=== PATIENT | female | born 1955 | race Caucasian/White ===

== ENCOUNTER 2022-01-23 19:32 | Inpatient (IN) ==
[2022-01-23] MEDS ORDERED: ONDANSETRON INJ 2 MG/ML 2 ML VIAL IV STA ×2 (20:12→23:21)
[2022-01-23] MEDS ORDERED: MoRPHine SULFATE 10 MG/ML CARP/VIAL IV STA (20:12)
[2022-01-23] MEDS ORDERED: SODIUM CHLORIDE 0.9% 500 ML IV ONE (20:13)
--- NOTE | 2022-01-23 20:16 | Emergency Department Note ---
Impression & Plan Back pain, Compression fracture ED Provider Note NAME: ORA ROCK AGE: 66 SEX: F : 1955 ARRIVES VIA: Walk-In INFORMANT: Patient ED PROVIDER(S): Alvaro Salas DO CHIEF COMPLAINT: back pain HPI: Patient is a 66-year-old female who presents to ER for severe lower back pain. Symptoms started back in June and then resolved. This started back up again about a month ago and for the past several days she has been unable to get out of bed. She denies any headache or change in vision. No chest pain or shortness of breath. No numbness in her groin. No dysuria, urgency, or frequency. No numbness in the legs. She notes her left leg does feel slightly different. ROS: See above HPI for pertinent positives & negatives. A total of 10 systems reviewed and were otherwise negative. PAST MEDICAL HISTORY:See Below PAST SURGICAL HISTORY:See Below FAMILY HISTORY:See Below SOCIAL HISTORY:See Below HOME MEDICATIONS:See Below ALLERGIES:See Below VITALS:See Below PHYSICAL EXAMINATION: GENERAL: Sitting up in bed, alert, well appearing, well nourished, no distress, non-toxic EYE EXAM: normal conjunctiva. OROPHARYNX: no exudate, no erythema, lips, buccal mucosa, and tongue normal and mucous membranes are moist NECK: supple, no nuchal rigidity, no adenopathy, non-tender LUNGS: Clear to auscultation. Normal chest wall mechanics HEART: no murmurs, S1 normal and S2 normal ABDOMEN: abdomen soft, non-tender, normo-active bowel sounds, no masses, no r ebound or guarding. BACK: Back is symmetrical on inspection and there is no deformity, Tenderness t hroughout her entire lower lumbar spine including paraspinal muscles UPPER EXTREMITIES: upper extremities are grossly normal. LOWER EXTREMITIES:Flexion and extension of the hips, knees, ankles, and EHL 5/5 bilaterally. Gross sensation is intact. NEURO EXAM: Normal sensorium, cranial nerves II-XII grossly intact, normal speech, no gross weakness of arms, no gross weakness of legs. MEDICAL DECISION MAKING: Patient is a 66-year-old female who presents ER for the above-stated complaint.He was established blood work was obtained. Labs show mild leukocytosis 11,000. [employer] with LFTs bilirubin and lipase was unremarkable. UA was negative. CT of the lumbar spine shows L2 and 3 compression fracture is old versus new with about 3 to 4 mm of retropulsion. She has no focal deficit at this time. She was given 2 doses of morphine. She was given Zofran. Discussed with Dr. oMra and Jorge East from [facility] spine. They will follow her tomorrow in the hosppital. Triage Nursing notes reviewed. Limited review of prior medical records performed Vital Signs: reviewed and remarkable for HTN Differential diagnosis: Differential diagnoses includes but is not limited to lumbar radiculopathy, kidney stone, muscle strain, facture, cauda equina, mass, and disc herniation. ER treatment provided: See below Diagnostics interpreted by me: ECG: none Cardiac Monitoring: An order was placed for continuous cardiac monitoring. The monitor shows a rate of 82 with sinus rhythm. Laboratory studies: As stated above and show below. Imaging studies: CT lumbar spine showed an L2 and L3 acute burst chronic compression fractures with 3 mm retropulsion Consultation(s): Discussed with hospitalist Dr. Abel who Discussed with Jorge from [place] orthopedic spine Procedures: none Critical Care: None Past Med/Surg History Social History (Updated 12/07/21 @ 13:30 by Genna Kwong) Smoking Status: Current every day smoker Hx Alcohol Use: Yes Hx Substance Use: No Preferred Language: Kazakh Feels Safe at Home: Yes Allergies Allergies Allergy/AdvReac Type Severity Reaction Status Date / Time NSAIDS (Non-Steroidal Allergy Unknown THROMBOCYTO Verified 01/23/22 21:26 Anti-Inflamma PENIA sumatriptan AdvReac Intermediate PANIC Verified 01/23/22 21:26 ATTACKS ketorolac AdvReac Mild SKIN Verified 01/23/22 21:26 IRRITATION Home Meds Home Medications Medication Instructions Recorded Confirmed alprazolam 0.5 mg tablet 0.5 mg PO QID PRN Anxiety 01/23/22 01/23/22 cyclobenzaprine 10 mg tablet 10 mg PO BID PRN Muscle Spasm 01/23/22 01/23/22 escitalopram oxalate 10 mg tablet 10 mg PO QAM 01/23/22 01/23/22 escitalopram oxalate 20 mg tablet 20 mg PO QAM 01/23/22 01/23/22 fenofibrate nanocrystallized 145 145 mg PO DAILY 01/23/22 01/23/22 mg tablet omeprazole 20 mg capsule,delayed 20 mg PO QAM 01/23/22 01/23/22 release Results & Data (ED) Vital Signs Vital Signs - 24 hr 01/23/22 19:37 01/23/22 20:29 01/23/22 20:35 Temperature 36.9 C Temperature Source Temporal Artery Scan Pulse Rate 86 Pulse Rate [Apical] 74 Pulse Rhythm Regular Pulse Strength Normal Respiratory Rate 18 20 Respiratory Effort / Characteristics Non-Labored Spontaneous Respiratory Depth Normal Respiratory Pattern Regular Blood Pressure 145/90 H Blood Pressure [Left Arm] 156/83 H Blood Pressure Mean 108 Blood Pressure Mean [Left Arm] 107 Blood Pressure Position Sitting Pulse Oximetry 95 96 98 Oxygen Delivery Method Room Air Room Air Sepsis Recent Fever Within 48 Hours No Sepsis New/Unexplained Change in Mental Status N/A Sepsis Action Taken by Nursing No Action Required 01/23/22 22:00 01/23/22 23:00 Temperature Temperature Source Pulse Rate Pulse Rate [Apical] 86 80 Pulse Rhythm Pulse Strength Respiratory Rate 18 19 Respiratory Effort / Characteristics Respiratory Depth Respiratory Pattern Blood Pressure Blood Pressure [Left Arm] 135/81 132/100 Blood Pressure Mean Blood Pressure Mean [Left Arm] 99 110 Blood Pressure Position Pulse Oximetry 98 96 Oxygen Delivery Method Room Air Sepsis Recent Fever Within 48 Hours Sepsis New/Unexplained Change in Mental Status Sepsis Action Taken by Nursing Laboratory Data Result diagrams: 01/23/22 20:30 01/23/22 20:30 Lab Results 01/23/22 01/23/22 01/23/22 Range/Units 20:30 20:30 20:30 WBC 11.66 H (4.8-10.8) K/ul RBC 5.46 H (3.93-5.22) M/uL Hgb 16.3 H (12.0-16.0) g/dl Hct 47.6 H (34.1-44.9) % MCV 87.2 (80.0-100.0) fL MCH 29.9 (25.0-34.0) pg MCHC 34.2 (32.0-36.0) g/dL RDW Std Deviation 40.2 (36.4-46.3) fL RDW Coeff of Deanne 12.8 (11.5-14.5) % Plt Count 44 L (130-400) K/uL MPV 15.5 H (9.4-12.3) fL Immature Gran % (Auto) 0.4 % Neut % (Auto) 70.0 % Lymph % (Auto) 20.7 % [place] % (Auto) 6.0 % Eos % (Auto) 2.5 % Baso % (Auto) 0.4 % Neut # (Auto) 8.16 H (1.4-6.5) K/uL Lymph # (Auto) 2.41 (1.2-3.4) K/uL [place] # (Auto) 0.70 (0.24-0.82) K/uL Eos # (Auto) 0.29 (0-0.50) K/uL Baso # (Auto) 0.05 (0-0.2) K/uL Immature Gran # (Auto) 0.05 H (0.00-0.02) K/uL Platelet Estimate Decreased L (Normal) Sodium 137 (136-145) mmol/L Potassium 3.9 (3.5-5.1) mmol/L Chloride 102 (98-107) mmol/L Carbon Dioxide 24 (21-32) mmol/L Anion Gap 11 (3-11) BUN 7 (6-23) mg/dl Creatinine 0.59 L (0.6-1.2) mg/dl Est Cr Clr Drug Dosing Not Reportable Est GFR ( Amer) 112.3 ml/min Est GFR (Non-Af Amer) 96.9 ml/min BUN/Creatinine Ratio 11.9 (10-20) Glucose 117 H (70-99(Fasting)) mg/dl Calcium 10.0 (8.5-10.1) mg/dl Total Bilirubin 0.5 (0.2-1.0) mg/dl AST 34 (13-39) U/L ALT 31 (7-52) U/L Alkaline Phosphatase 75 (34-104) U/L Total Protein 7.4 (6.0-8.3) gm/dl Albumin 4.3 (3.4-5.0) gm/dl Globulin 3.1 (2.5-4.0) gm/dl Albumin/Globulin Ratio 1.4 (0.9-2) Lipase 21 (11-82) U/L Urine Color Yellow Urine Appearance Clear (Clear) Urine pH 7.0 (4.5-7.5) Ur Specific [place] 1.008 (1.000-1.030) Urine Protein Negative (Negative) Urine Glucose (UA) Negative (Negative) Urine Ketones Negative (Negative) Urine Blood Negative (Negative) Urine Nitrite Negative (Negative) Urine Bilirubin Negative (Negative) Urine Urobilinogen Negative (Negative) Ur Leukocyte Esterase Negative (Negative) Administered Medications Discontinued Medications Sodium Chloride (Nss) 500 mls @ 999 mls/hr IV .Q31M ONE Stop: 01/23/22 20:43 Last Infusion: 01/23/22 21:23 Dose: 0 mls/hr Documented By: Admin: 01/23/22 20:31 Dose: 999 mls/hr Documented By: EMB Methylprednisolone (Methylprednisolone 125 Mg/2 Ml Vial) 60 mg IV NOW STA Stop: 01/23/22 22:42 Last Admin: 01/23/22 23:09 Dose: 60 mg Documented By: EMB Morphine Sulfate (Morphine Sulfate 10 Mg/Ml Carp/Vial) 6 mg IV NOW STA Stop: 01/23/22 20:13 Last Admin: 01/23/22 20:31 Dose: 6 mg Documented By: EMB Morphine Sulfate (Morphine Sulfate 4 Mg/Ml 1 Ml Carp\Vial) 4 mg IV NOW STA Stop: 01/23/22 21:37 Last Admin: 01/23/22 21:41 Dose: 4 mg Documented By: EMB Ondansetron HCl (Ondansetron Inj 2 Mg/Ml 2 Ml Vial) 4 mg IV NOW STA Stop: 01/23/22 20:13 Last Admin: 01/23/22 20:31 Dose: 4 mg Documented By: EMB Ondansetron HCl (Ondansetron Inj 2 Mg/Ml 2 Ml Vial) Confirm Administered Dose 4 mg .ROUTE .STK-MED ONE Stop: 01/23/22 23:05 Last Admin: 01/23/22 23:09 Dose: 4 mg Documented By: EMB Discharge Plan Visit Data Chief Complaint: Back Injury/Pain Stated Complaint: SEVERE BACK PAIN. HAS 2 HERNIAS ED Provider: Alvaro Salas Discharge Problem: Back pain, Compression fracture Forms Stand Alone Forms: [facility] Prescriptions Prescriptions: No Action cyclobenzaprine 10 mg tablet 10 mg PO BID PRN (Reason: Muscle Spasm) escitalopram oxalate 10 mg tablet 10 mg PO QAM escitalopram oxalate 20 mg tablet 20 mg PO QAM alprazolam 0.5 mg tablet 0.5 mg PO QID PRN (Reason: Anxiety) omeprazole 20 mg capsule,delayed release(DR/EC) 20 mg PO QAM fenofibrate nanocrystallized 145 mg tablet 145 mg PO DAILY Referrals Referrals: Jessie Mccauley M.D. [Primary Care Provider] -
[2022-01-23 20:59] LABS: Appearance Urine Clear (Clear); Bilirubin Urine Negative (Negative); Blood Urine Negative (Negative); Color Urine Yellow; Glucose Urine UA Negative (Negative); Ketones Urine Negative (Negative); Leukocyte Esterase Urine Negative (Negative); Nitrite Urine Negative (Negative); Protein Urine Negative (Negative); Specific Gravity Urine 1.008 (1.000-1.030); Urobilinogen Urine Negative (Negative)
[2022-01-23 21:09] LABS: Alanine Aminotransferase 31 U/L (7-52); Albumin Globulin Ratio 1.4 (0.9-2); Albumin Level 4.3 gm/dl (3.4-5.0); Alkaline Phosphatase 75 U/L (34-104); Anion Gap 11 (3-11); Aspartate Aminotransferase 34 U/L (13-39); BUN Creatinine Ratio 11.9 (10-20); Bilirubin,Total 0.5 mg/dl (0.2-1.0); Blood Urea Nitrogen 7 mg/dl (6-23); Carbon Dioxide 24 mmol/L (21-32); Chloride 102 mmol/L (98-107); Est GFR (African American) 112.3 ml/min; Est GFR (Non-African American) 96.9 ml/min; Globulin 3.1 gm/dl (2.5-4.0); Glucose 117 mg/dl (70-99(Fasting)); Lipase 21 U/L (11-82); Potassium 3.9 mmol/L (3.5-5.1); Sodium 137 mmol/L (136-145); Total Protein 7.4 gm/dl (6.0-8.3)
[2022-01-23 21:15] LABS: Hematocrit (blood only) 47.6 % (34.1-44.9); Hemoglobin 16.3 g/dl (12.0-16.0); White Blood Count 11.66 K/ul (4.8-10.8)
[2022-01-23] MEDS ORDERED: MoRPHine SULFATE 4 MG/ML 1 ML CARP\\VIAL IV STA (21:36)
[2022-01-23 21:39] LABS: Basophils # (auto) 0.05 K/uL (0-0.2); Basophils % (auto) 0.4 %; Eosinophils # (auto) 0.29 K/uL (0-0.50); Eosinophils % (auto) 2.5 %; Immature Granulocytes # (auto) 0.05 K/uL (0.00-0.02); Immature Granulocytes % (auto) 0.4 %; Lymphocytes # (auto) 2.41 K/uL (1.2-3.4); Lymphocytes % (auto) 20.7 %; Mean Corpuscular Hemoglobin 29.9 pg (25.0-34.0); Mean Corpuscular Hgb Conc 34.2 g/dL (32.0-36.0); Mean Corpuscular Volume 87.2 fL (80.0-100.0); Mean Platelet Volume 15.5 fL (9.4-12.3); Neutrophils # (auto) 8.16 K/uL (1.4-6.5); Platelet Count 44 K/uL (130-400); Platelet Estimate Decreased (Normal); RDW Coefficient of Variation 12.8 % (11.5-14.5); RDW Standard Deviation 40.2 fL (36.4-46.3); Red Blood Count 5.46 M/uL (3.93-5.22)
[2022-01-23] MEDS ORDERED: methylPREDNISolone 125 MG/2 ML VIAL IV STA (22:41)
[2022-01-23] MEDS ORDERED: ONDANSETRON INJ 2 MG/ML 2 ML VIAL ONE (23:04)
[2022-01-24] MEDS ORDERED: POLYETHYLENE (MIRALAX) 17 GM PACK PO PRN (00:45)
[2022-01-24] MEDS ORDERED: CYCLOBENZAPRINE HCL 10 MG TAB PO ONE (00:58)
[2022-01-24] MEDS ORDERED: HYDROmorphone INJ 0.5 MG/0.5 ML SYR ONE (00:59)
[2022-01-24] MEDS: HYDROmorphone INJ 0.5 MG/0.5 ML SYR IV PRN ×7 (01:01→23:37)
[2022-01-24] MEDS: CYCLOBENZAPRINE HCL 10 MG TAB PO PRN (01:01)
--- NOTE | 2022-01-24 03:29 | History and Physical Report ---
DATE OF ADMISSION: 01/23/2022. CHIEF COMPLAINT: Severe back pain. HISTORY OF PRESENT ILLNESS: A 66-year-old female with past medical history significant for mixed hyperlipidemia, prediabetes, obesity, diverticulosis of colon, GERD, history of depression, generalized anxiety disorder, history of ventral hernia, ongoing tobacco use, presents with severe back pain. The patient says in June, she had COVID and at that time, she had severe back pain and ambulatory dysfunction, went to [facility]. She says she had MRI done and was told it looked bad and she was prescribed muscle relaxant, some steroids and she also had physical therapy and she says she recovered after 4 months. Then one month ago, when she was cooking and doing dishes, she again started to have back pain, and got worse. She states she tried to Therapy as last time , but it is not getting better. She is in significant pain and sometimes the pain shoots in the legs. She denies any incontinence of urine or stools or any weakness. With her ongoing pain she came to the ER. In the ER, a CT scan of the lumbar spine was done. It showed compression fractures at L2 and L3. The patient denies any headache. No blurred visions, no earache, no runny nose, no sore throat, no cough. Appetite is not that great. No difficulty swallowing. No chest pain, no shortness of breath, no nausea, no vomiting, no abdominal pain. Somewhat constipated. Normal bladder movements. No swelling in the legs. ALLERGIES: SUMATRIPTAN AND KETOROLAC. PAST MEDICAL HISTORY: As mentioned above. PAST SURGICAL HISTORY: The patient states she has incarcerated incisional hernia repair, partial removal of the colon, reduction of the breast, appendectomy, cholecystectomy, total abdominal hysterectomy with removal of tubes and she says she also has back surgery. MEDICATIONS: The patient is on alprazolam 0.5 mg p.o. q.i.d. p.r.n., cyclobenzaprine 10 mg p.o. b.i.d. p.r.n., Lexapro 30 mg p.o. a.m., fenofibrate 145 mg p.o. daily, omeprazole 20 mg p.o. a.m. FAMILY HISTORY: Significant for mother has epilepsy; father had colon cancer with mets to liver; elder brother has prostate cancer and Alzheimer's, alcoholic; younger brother with thyroid cancer and colon cancer. SOCIAL HISTORY: She is smoking 1-2 packs of cigarettes daily for last 50 years. Alcohol: She drinks alcohol, but lately she is drinking only occasionally. No drug use. REVIEW OF SYSTEMS: As per HPI. Rest of the review of systems is negative. PHYSICAL EXAMINATION: GENERAL: The patient is obese, not in acute distress, seems to be in pain. VITAL SIGNS: Temperature 36.9, pulse 80, respiratory rate 19, blood pressure 132/100, oxygen 96% on room air. HEENT: Pupils equal, round and reactive to light. Oral mucosa moist. NECK: No JVD or neck masses. CARDIOVASCULAR: S1 and S2 heard. Regular rate and rhythm. No murmur, no gallop. RESPIRATORY SYSTEM: Normal AP diameter. No accessory muscle use. No wheezing or crackles. ABDOMEN: Soft, bowel sounds present, nontender, no distention. CENTRAL NERVOUS SYSTEM: Cranial nerves II-XII grossly intact, nonfocal. EXTREMITIES: No edema, no erythema. MUSCULOSKELETAL: Bilateral straight leg test negative. LABORATORY DATA: WBC 11.6, hemoglobin 16.3, hematocrit 47.6, platelets 44. Sodium 137, potassium 3.9, chloride 102, bicarbonate 24, BUN 7, creatinine 0.5, serum glucose 117, calcium 10, total bilirubin 0.5, AST 34, ALT 31, alkaline phosphatase 75, lipase 21. Urinalysis negative. IMAGING DATA: CT scan of the lumbar spine shows 20-30% superior endplate compression fracture at L2 and L3. Could be either acute or chronic. Consider bone scan and MRI to differentiate acute from chronic injury. ASSESSMENT AND PLAN: A 66-year-old female presents with severe back pain. 1. Severe back pain compression fracture at L2 and L3 on the CAT scan. Pain control. Consult orthopedics in the a.m. MRI as per orthopedics. PT, OT when stable. 2. Morbid obesity: Needs counseling. 3. Thrombocytopenia. The patient says she was found to have thrombocytopenia and stopped drinking . Needs to follow up. Rule out cirrhosis. 4. Anxiety and depression. Continue her home medications. 5. Hyperlipidemia: Continue fenofibrate. 6. Gastroesophageal reflux disease: Continue omeprazole. 7. Prediabetes. Will follow HbA1c levels. Placing on diabetic diet. 8. Ongoing tobacco abuse: Needs counseling. 9. Deep venous thrombosis prophylaxis. SCDs as the patient has thrombocytopenia. DISPOSITION: Closely monitor in the medical floor. PT, OT prior to discharge. Social service to help with discharge planning. Job ID: [id number] [facility] MED[facility] CENTERMayra
[2022-01-24] MEDS: ACETAMINOPHEN 325 MG TAB PO PRN (04:06)
[2022-01-24 06:03] LABS: Anion Gap 9 (3-11); BUN Creatinine Ratio 12.3 (10-20); Blood Urea Nitrogen 7 mg/dl (6-23); Calcium 9.7 mg/dl (8.5-10.1); Carbon Dioxide 25 mmol/L (21-32); Chloride 101 mmol/L (98-107); Est GFR (African American) 113.5 ml/min; Glucose 179 mg/dl (70-99(Fasting)); Magnesium 1.5 mg/dl (1.7-2.4); Potassium 4.2 mmol/L (3.5-5.1); Sodium 135 mmol/L (136-145)
[2022-01-24 06:11] LABS: Hematocrit (blood only) 46.1 % (34.1-44.9); Hemoglobin 15.6 g/dl (12.0-16.0); Mean Corpuscular Hemoglobin 29.8 pg (25.0-34.0); Mean Corpuscular Hgb Conc 33.8 g/dL (32.0-36.0); Platelet Count 38 K/uL (130-400); RDW Coefficient of Variation 12.7 % (11.5-14.5); RDW Standard Deviation 40.3 fL (36.4-46.3); Red Blood Count 5.24 M/uL (3.93-5.22); White Blood Count 9.98 K/ul (4.8-10.8)
[2022-01-24 06:12] LABS: Basophils # (auto) 0.01 K/uL (0-0.2); Basophils % (auto) 0.1 %; Eosinophils # (auto) 0.01 K/uL (0-0.50); Eosinophils % (auto) 0.1 %; Giant Platelets 1+; Immature Granulocytes # (auto) 0.05 K/uL (0.00-0.02); Immature Granulocytes % (auto) 0.5 %; Monocytes # (auto) 0.08 K/uL (0.24-0.82); Monocytes % (auto) 0.8 %; Neutrophils # (auto) 9.13 K/uL (1.4-6.5); Neutrophils % (auto) 91.5 %; Platelet Estimate Decreased (Normal)
--- NOTE | 2022-01-24 07:51 | CT Scan Report ---
CT lumbar spine wo con HISTORY: 66 years-old Female severe lower back pain acute severe low back pain COMPARISON: CT abdomen and pelvis 05/29/2015 TECHNIQUE: Multiple axial CT images of the lumbar spine were obtained without the use of IV contrast. A dose lowering technique was used consistent with the principals of ALARA. FINDINGS: Colonic diverticulosis. Postoperative changes of the rectosigmoid. Surgical clips with mild chronic s tranding within the presacral tissues. Atherosclerosis of the aorta. Hepatic steatosis with probable hepatosplenomegaly. Demineralized appearance of the bones. 13 degrees levoscoliosis measured from L1-L4. Moderate to sharda re L4-L5 intervertebral disc space narrowing with vacuum disc phenomena and severe facet arthrosis ward s progressed from the prior study. Additionally, there is a posterior disc osteophyte complex formati on noted at this interspace with resultant moderate central canal and at least mild to moderate bilat eral neural foraminal narrowing. Moderate multilevel spondylitic spurring and facet arthrosis. Grade 1 anterolisthesis L5 on S1 is likely secondary to severe associated facet arthrosis. Further evaluati on of the central canal and neuroforamina is better assessed by MRI demineralized appearance of the b ones. 30% superior endplate compression at L2 with 4 mm retropulsion results in mild central canal stenosis . This is new from the prior study. 50% superior endplate compression at L3 is noted without signific ant retropulsion, also new from the prior study. Small superior endplate Schmorl's node at L4 appears chronic. The imaged sacrum and iliac bones appear intact. IMPRESSION: 1. 30% superior endplate compression deformity at L2 with 4 mm retropulsion is technically age-indete rminate however appears to be acute or subacute. This results in mild central canal stenosis. 2. 50% superior endplate compression deformity of L3 is also age-indeterminate however is new from 17 and is likely subacute or chronic. 3. Chronic appearing superior endplate Schmorl's node at L4. 4. Demineralized appearance of the bones with levoscoliosis and progressive multilevel degenerative c hanges. ACT 112: Negative or not required by law. The above report was generated using voice recognition software. It may contain grammatical, syntax o r spelling errors. Electronically signed by: Ruben Sanders M.D. 01/24/2022 7:49 AM
[2022-01-24] MEDS: PANTOprazole 40 MG TAB PO SCH (10:03)
[2022-01-24] MEDS: FENOFIBRATE NANOCRYSTALLIZED 145 MG TABLET PO SCH (10:03)
[2022-01-24] MEDS: ESCITALOPRAM OXALATE 20 MG TAB PO SCH (10:03)
[2022-01-24] MEDS: ESCITALOPRAM OXALATE 10 MG TAB PO SCH (10:04)
[2022-01-24] MEDS: ALPRAZolam 0.5 MG TABLET PO PRN ×2 (10:06→19:25)
[2022-01-24] MEDS: MAGNESIUM SULFATE / D5W 1 GM/100 ML BAG IV SCH ×2 (17:35→20:41)
[2022-01-25] MEDS: ACETAMINOPHEN 325 MG TAB PO PRN ×2 (02:24→08:01)
[2022-01-25] MEDS: CYCLOBENZAPRINE HCL 10 MG TAB PO PRN (02:27)
[2022-01-25] MEDS: HYDROmorphone INJ 0.5 MG/0.5 ML SYR IV PRN ×6 (05:00→22:37)
[2022-01-25] MEDS: ONDANSETRON INJ 2 MG/ML 2 ML VIAL IV PRN (05:00)
[2022-01-25 07:55] LABS: Hematocrit (blood only) 48.2 % (34.1-44.9); Hemoglobin 16.2 g/dl (12.0-16.0); Mean Corpuscular Hemoglobin 30.2 pg (25.0-34.0); Mean Corpuscular Hgb Conc 33.6 g/dL (32.0-36.0); Mean Corpuscular Volume 89.8 fL (80.0-100.0); RDW Coefficient of Variation 12.8 % (11.5-14.5); RDW Standard Deviation 41.8 fL (36.4-46.3); Red Blood Count 5.37 M/uL (3.93-5.22); White Blood Count 17.88 K/ul (4.8-10.8)
[2022-01-25] MEDS: ESCITALOPRAM OXALATE 10 MG TAB PO SCH (08:02)
[2022-01-25] MEDS: FENOFIBRATE NANOCRYSTALLIZED 145 MG TABLET PO SCH (08:02)
[2022-01-25] MEDS: ESCITALOPRAM OXALATE 20 MG TAB PO SCH (08:02)
[2022-01-25] MEDS: PANTOprazole 40 MG TAB PO SCH (08:02)
[2022-01-25 08:24] LABS: BUN Creatinine Ratio 13.2 (10-20); Calcium 9.9 mg/dl (8.5-10.1); Creatinine Clr Calc Pharmacy 79.1 ml/min; Est GFR (African American) 96.1 ml/min; Est GFR (Non-African American) 82.9 ml/min; Magnesium 2.1 mg/dl (1.7-2.4); Phosphorus 4.1 mg/dl (2.5-4.9); Potassium 3.9 mmol/L (3.5-5.1)
[2022-01-25] MEDS: ALPRAZolam 0.5 MG TABLET PO PRN ×2 (10:22→20:50)
[2022-01-25 10:59] LABS: Basophils # (auto) 0.04 K/uL (0-0.2); Basophils % (auto) 0.2 %; Eosinophils # (auto) 0.04 K/uL (0-0.50); Eosinophils % (auto) 0.2 %; Immature Granulocytes # (auto) 0.07 K/uL (0.00-0.02); Immature Granulocytes % (auto) 0.4 %; Lymphocytes # (auto) 2.92 K/uL (1.2-3.4); Lymphocytes % (auto) 16.3 %; Mean Platelet Volume 14.1 fL (9.4-12.3); Monocytes # (auto) 0.82 K/uL (0.24-0.82); Monocytes % (auto) 4.6 %; Neutrophils # (auto) 13.99 K/uL (1.4-6.5); Neutrophils % (auto) 78.3 %; Platelet Count 78 K/uL (130-400)
--- NOTE | 2022-01-25 12:44 | Consultation ---
Date of Consultation January 25, 2022 Assessment & Plan (1) Compression fracture: Patient has an acute L2 compression fracture, subacute to chronic L3 compression fracture. Patient has been examined by Dr. Mixon as well has reviewed imaging. Treatment plan is conservative. I will order a rigid TLSO brace to be worn with activity/ambulation. Does not wear need to wear it when in a chair or when lying down. Would recommend physical therapy. We will start Tylenol with codeine as she states she is sensitive to the Dilaudid she currently has and the Tylenol is not controlling her pain. Would also recommend follow-up [place] [facility] with Kizzy Carbone nurse practitioner for assessment of bone de nsity. This is been reviewed with the patient. She is comfortable with this plan. No lifting greater than 5 pounds. Ambulate ad balta. History of Present Illness Reason for Consultation: Lumbar compression fracture Attending Physician: Tello Her MD History of Present Illness Is a pleasant 66-year-old female who reports that she had COVID in June 2021. She is severe back pain at that point time. After physical therapy for several months her symptoms improved back to baseline. A few weeks ago she reports a new onset of lower back pain. No specific accident, trauma, fall. No radicular complaints of bilateral lower extremity pain, paresthesia, numbness. Denies bowel or bladder dysfunction. Denies perineum numbness. Typically ambulates independently. Although she has a walker if needed. She has an elastic brace at home but this just provide some abdominal discomfort which she has an abdominal surgical history of. She has also had a prior laminectomy in 2001. Allergies Allergy/AdvReac Type Severity Reaction Status Date / Time NSAIDS (Non-Steroidal Allergy Unknown THROMBOCYTO Verified 01/23/22 21:26 Anti-Inflamma PENIA sumatriptan AdvReac Intermediate PANIC Verified 01/23/22 21:26 ATTACKS ketorolac AdvReac Mild SKIN Verified 01/23/22 21:26 IRRITATION Home Medications Medication Instructions Recorded Confirmed Type alprazolam 0.5 mg tablet 0.5 mg PO QID PRN Anxiety 01/23/22 01/23/22 History cyclobenzaprine 10 mg tablet 10 mg PO BID PRN Muscle Spasm 01/23/22 01/23/22 History escitalopram oxalate 10 mg tablet 10 mg PO QAM 01/23/22 01/23/22 History escitalopram oxalate 20 mg tablet 20 mg PO QAM 01/23/22 01/23/22 History fenofibrate nanocrystallized 145 145 mg PO DAILY 01/23/22 01/23/22 History mg tablet omeprazole 20 mg capsule,delayed 20 mg PO QAM 01/23/22 01/23/22 History release Patient History Social History Smoking Status: Never smoker Second Hand Exposure: No; Do You Dip or Chew Tobacco: No; Tobacco Cessation Education Requested by Patient: No Hx Alcohol Use: No Hx Substance Use: No Preferred Language: [place]orese Communication Ability: Effective Lactation Coordinator Required: No Beliefs That Will Affect Care: None Current Living Situation: Family Other Information That Helps Us Care for You: No Feels Safe at Home: Yes Safety Concerns: Feels Safe At This Time Assistive Devices: Walker Review of Systems 2 Review of Systems: All systems reviewed & are unremarkable except as noted in HPI & below Physical Exam Physical Exam: She is alert and oriented x3 Lying in bed in no acute distress Tender to patient of the midline mid lumbar region no palpable step-offs. Strength is intact bilateral lower extremities Negative tension signs bilaterally Calf soft nontender bilaterally Results & Data ([facility]) Vital Signs (Past 12 Hours) Vital Signs Temp Pulse Resp BP Pulse Ox O2 Del Method 01/25/22 07:42 36.6 C 58 L 18 164/79 H 95 Room Air Diagnostic Findings [place], [place] [phone] CT Scan Report Patient:ORA ROCK Admit Date:01/23/22 MR#:[id number] Address1:[address] [place] [address] Acct ID:[id number] Address2: Date:1955 [facility] Zip:[place] [address] Age:66 Location:[facility] Sex:F Room/Bed:[facility] 1-12 Att Phy:Tello Her MD Diagnosis:BACK PAIN Annie Phy:Jessie Mccauley M.D. Service Date:01/23/22 Fam Phy: Interpreting Phy:Ruben SandersAdmit Phy:Kwame Luong MD Ordering Phy:Salas, Alvaro M., DO cc: ~ CT lumbar spine wo con HISTORY: 66 years-old Female severe lower back pain acute severe low back pain COMPARISON: CT abdomen and pelvis 05/29/2015 TECHNIQUE: Multiple axial CT images of the lumbar spine were obtained without the use of IV contrast. A dose lowering technique was used consistent with the principals of BREA. FINDINGS: Colonic diverticulosis. Postoperative changes of the rectosigmoid. Surgical clips with mild chronic stranding within the presacral tissues. Atherosclerosis of the aorta. Hepatic steatosis with probable hepatosplenomegaly. Demineralized appearance of the bones. 13 degrees levoscoliosis measured from L1-L4. Moderate to severe L4-L5 intervertebral disc space narrowing with vacuum disc phenomena and severe facet arthrosis has progressed from the prior study. Additionally, there is a posterior disc osteophyte complex formation noted at this interspace with resultant moderate central canal and at least mild to moderate bilateral neural foraminal narrowing. Moderate multilevel spondylitic spurring and facet arthrosis. Grade 1 anterolisthesis L5 on S1 is likely secondary to severe associated facet arthrosis. Further evaluation of the central canal and neuroforamina is better assessed by MRI demineralized appear ance of the bones. 30% superior endplate compression at L2 with 4 mm retropulsion results in mild central canal stenosis. This is new from the prior study. 50% superior endplate compression at L3 is noted without significant retropulsion, also new from the prior study. Small superior endplate Schmorl's node at L4 appears chronic. The imaged sacrum and iliac bones appear intact. IMPRESSION: 1. 30% superior endplate compression deformity at L2 with 4 mm retropulsion is technically age-indeterminate however appears to be acute or subacute. This results in mild central canal stenosis. 2. 50% superior endplate compression deformity of L3 is also age-indeterminate however is new from 2015 and is likely subacute or chronic. 3. Chronic appearing superior endplate Schmorl's node at L4. 4. Demineralized appearance of the bones with levoscoliosis and progressive multilevel degenerative changes. ACT 112: Negative or not required by law. The above report was generated using voice recognition software. It may contain grammatical, syntax or spelling errors. Electronically signed by: Ruben Sanders M.D. 01/24/2022 7:49 AM Dictated:01/24/22 0740 Transcribed: 01/24/22 0740
[2022-01-25] MEDS ORDERED: ACETAMINOPHEN W/CODEINE #3 1 TAB PO PRN (13:00)
--- NOTE | 2022-01-25 14:00 | Hospitalist Progress Note ---
Date of Service January 25, 2022 Assessment & Plan (1) Compression fracture: Plan: - seen on CT of Lumbar spine at L2 and L3 - significant pain per patient - ortho spine consult - conservative management with TLSO brace - Pain management - PT/OT eval (2) Thrombocytopenia: Plan: - appears to be chronic - follows with outside provider - stable - no signs of bleeding (3) GERD (gastroesophageal reflux disease): Plan: - continue PPI Plan DVT Ppx: lovenox Full Code Tello Her MD Hospital Medicine Admission and Anticipated Discharge Date Admission Date: January 23, 2022 Subjective A 66-year-old female with past medical history significant for mixed hyperlipidemia, prediabetes, obesity, diverticulosis of colon, GERD, history of depression, generalized anxiety disorder, history of ventral hernia, ongoing tobacco use, presents with severe back pain. Found to have compression fractures on imaging. Seen by orthopedics who recommend TLSO brace and PT/OT eval. She feels well today, still with back pain. Denies chest pain, shortness of breath, n/v/d, abdominal pain/ Review of Systems Review of Systems: All systems reviewed & are unremarkable except as noted in Subjective Physical Exam Constitutional: WD/WN, vitals as above Eyes: PERRL, conjunctivae normal, anicteric sclerae ENMT: external ear and nose normal, oropharynx normal Neck: trachea midline, no thyromegaly Respiratory: normal respiratory effort, lungs clear to auscultation Cardiovascular: RRR, no murmur, no edema Gastrointestinal (Abdomen): normal bowel sounds, soft, nontender, no hepatosplenomegaly Musculoskeletal: no cyanosis or clubbing, extremities motor strength 5/5 Skin: no rashes, warm and dry Neurologic: patellar DTR's 2+ bilat, sensation intact and PERRL, EOMI, accommodation nl, no face palsy, no dysarthria Psychiatric: A+Ox3, euthymic affect Results & Data Results & Data ([facility]) Vital Signs (Past 12 Hours) Vital Signs Temp Pulse Resp BP Pulse Ox O2 Del Method 01/25/22 07:42 36.6 C 58 L 18 164/79 H 95 Room Air Laboratory Results Short CBC 01/25/22 Range/Units 07:35 WBC 17.88 H (4.8-10.8) K/ul Hgb 16.2 H (12.0-16.0) g/dl Hct 48.2 H (34.1-44.9) % Plt Count 78 L D (130-400) K/uL BMP 01/25/22 07:35 Sodium 138 Potassium 3.9 Chloride 99 Carbon Dioxide 31 BUN 10 Creatinine 0.76 Glucose 110 H Calcium 9.9 Medications Administered Current Inpatient Medications Acetaminophen (Acetaminophen 325 Mg Tab) 650 mg PO Q4H PRN PRN Reason: pain/fever Stop: 02/23/22 00:44 Last Admin: 01/25/22 08:01 Dose: 650 mg Acetaminophen/Codeine Phosphate (Acetaminophen W/Codeine #3 1 Tab) 1 tab PO Q4H PRN PRN Reason: Pain Stop: 02/24/22 12:59 Alprazolam (Alprazolam 0.5 Mg Tablet) 0.5 mg PO QID PRN PRN Reason: Anxiety Stop: 02/23/22 00:44 Last Admin: 01/25/22 10:22 Dose: 0.5 mg Cyclobenzaprine HCl (Cyclobenzaprine Hcl 10 Mg Tab) 10 mg PO BID PRN PRN Reason: Muscle Spasm Stop: 02/23/22 00:44 Last Admin: 01/25/22 02:27 Dose: 10 mg Escitalopram Oxalate (Escitalopram Oxalate 10 Mg Tab) 10 mg PO QAM [facility] Stop: 02/23/22 08:59 Last Admin: 01/25/22 08:02 Dose: 10 mg Escitalopram Oxalate (Escitalopram Oxalate 20 Mg Tab) 20 mg PO QAM [facility] Stop: 02/23/22 08:59 Last Admin: 01/25/22 08:02 Dose: 20 mg Fenofibrate (Fenofibrate Nanocrystallized 145 Mg Tablet) 145 mg PO DAILY [facility] Stop: 02/23/22 08:59 Last Admin: 01/25/22 08:02 Dose: 145 mg Hydromorphone HCl (Hydromorphone Inj 0.5 Mg/0.5 Ml Syr) 0.5 mg IV Q3H PRN PRN Reason: Pain Stop: 02/07/22 00:44 Last Admin: 01/25/22 11:36 Dose: 0.5 mg Ondansetron HCl (Ondansetron Inj 2 Mg/Ml 2 Ml Vial) 4 mg IV Q6H PRN PRN Reason: Nausea Stop: 02/23/22 00:44 Last Admin: 01/25/22 05:00 Dose: 4 mg Pantoprazole Sodium (Pantoprazole 40 Mg Tab) 40 mg PO [facility] Stop: 02/23/22 08:59 Last Admin: 01/25/22 08:02 Dose: 40 mg Polyethylene Glycol (Polyethylene (Miralax) 17 Gm Pack) 17 gm PO DAILY PRN PRN Reason: Constipation Stop: 02/23/22 00:44
[2022-01-26] MEDS: HYDROmorphone INJ 0.5 MG/0.5 ML SYR IV PRN ×5 (01:43→18:36)
[2022-01-26 08:26] LABS: Hematocrit (blood only) 44.6 % (34.1-44.9); Hemoglobin 15.2 g/dl (12.0-16.0); Mean Corpuscular Hemoglobin 29.8 pg (25.0-34.0); Mean Corpuscular Hgb Conc 34.1 g/dL (32.0-36.0); Mean Corpuscular Volume 87.5 fL (80.0-100.0); RDW Coefficient of Variation 12.8 % (11.5-14.5); RDW Standard Deviation 40.8 fL (36.4-46.3); White Blood Count 8.64 K/ul (4.8-10.8)
[2022-01-26] MEDS: ESCITALOPRAM OXALATE 20 MG TAB PO SCH (08:38)
[2022-01-26] MEDS: ESCITALOPRAM OXALATE 10 MG TAB PO SCH (08:38)
[2022-01-26] MEDS: PANTOprazole 40 MG TAB PO SCH (08:39)
[2022-01-26] MEDS: FENOFIBRATE NANOCRYSTALLIZED 145 MG TABLET PO SCH (08:39)
[2022-01-26 08:42] LABS: Mean Platelet Volume 14.4 fL (9.4-12.3); Platelet Count 62 K/uL (130-400)
[2022-01-26 08:44] LABS: BUN Creatinine Ratio 18.8 (10-20); Calcium 9.4 mg/dl (8.5-10.1); Creatinine Clr Calc Pharmacy 87.1 ml/min; Est GFR (African American) 106.6 ml/min; Magnesium 1.8 mg/dl (1.7-2.4); Phosphorus 3.9 mg/dl (2.5-4.9); Potassium 3.7 mmol/L (3.5-5.1)
[2022-01-26 09:34] LABS: Basophils # (auto) 0.04 K/uL (0-0.2); Basophils % (auto) 0.5 %; Eosinophils # (auto) 0.08 K/uL (0-0.50); Eosinophils % (auto) 0.9 %; Immature Granulocytes # (auto) 0.02 K/uL (0.00-0.02); Immature Granulocytes % (auto) 0.2 %; Lymphocytes # (auto) 2.74 K/uL (1.2-3.4); Lymphocytes % (auto) 31.7 %; Monocytes # (auto) 0.57 K/uL (0.24-0.82); Monocytes % (auto) 6.6 %; Neutrophils # (auto) 5.19 K/uL (1.4-6.5); Neutrophils % (auto) 60.1 %
[2022-01-26] MEDS: ENOXAPARIN INJ 40 MG/0.4 ML SYR SQ SCH (10:28)
[2022-01-26] MEDS: ALPRAZolam 0.5 MG TABLET PO PRN ×2 (14:52→21:52)
[2022-01-26] MEDS: ONDANSETRON INJ 2 MG/ML 2 ML VIAL IV PRN (14:53)
--- NOTE | 2022-01-26 17:44 | Hospitalist Progress Note ---
Date of Service January 26, 2022 Assessment & Plan (1) Osteoporotic compression fracture of spine: Plan: - seen on CT of Lumbar spine at L2 and L3 - this is a recurrence, comp fx occurred last year -marimarley related to underlying osteoporosis -pt denies having had a BMD test as outpatient. - significant pain per patient -controlled with dilaudid, T3 not helpful. Switching to percocet trial now. - ortho spine consult - conservative management with TLSO brace - Pain management - PT/OT eval--ok with home when pain is controlled. (2) Thrombocytopenia: Plan: - appears to be chronic - follows with outside provider - stable - no signs of bleeding (3) GERD (gastroesophageal reflux disease): Plan: - continue PPI (4) Anxiety: Plan: Alprazolam chronically per PDMP. Caution with dosing Percocet and separate dosing to minimize pharmacologic side effects. Plan DVT Ppx: lovenox Full Code Tootie Lepe DO [facility] Hospitalist Admission and Anticipated Discharge Date Admission Date: January 23, 2022 Subjective A 66-year-old female with past medical history significant for mixed hyperlipid emia, prediabetes, obesity, diverticulosis of colon, GERD, history of depression, generalized anxiety disorder, history of ventral hernia, ongoing tobacco use, presents with severe back pain. Found to have compression fractures on imaging. Seen by orthopedics who recommend TLSO brace and PT/OT eval. She feels well today, still with back pain and dependent on dilaudid IV. T#3 was ineffective. We discussed switching to Percocet tonight. Caution with alprazolam. Denies chest pain, shortness of breath, n/v/d, abdominal pain. Tolerating PO. Understands that her pain level won't be 0, she needs to get her pain goal to a reasonable control with meds. She verbalized understanding with intent to comply. Review of Systems Review of Systems: All systems were reviewed and negative except as indicated in subjective above. Physical Exam Physical Exam: CONSTITUTIONAL: WNWD, vitals as above, generally well- appearing, NAD EYES: normal conjunctivae, no scleral icterus ENT: external ear and nose normal, MMM NECK: trachea midline RESPIRATORY: clear to auscultation bilaterally, no crackles, rales or wheezes, normal respiratory effort CARDIOVASCULAR: regular rate and rhythm, S1 and 2 heard without murmurs, gallops or rubs, no JVD, no peripheral edema CHEST: inspection of chest was normal GASTROINTESTINAL: soft, nontender, ND, obese, no guarding MUSCULOSKELETAL: strength 5/5 throughout, head is normocephalic and atraumatic, SKIN: warm and dry, NEUROLOGIC: patellar DTRs 2+ bilat. Touch, pain and proprioception normal. CN 2-12 grossly intact, no sensory deficit, normal cognition, normal speech, no tremor PSYCHIATRIC: alert cooperative and oriented to person, place and time. Euthymic mood, makes good eye contact, language grossly intact, recent and remote memory grossly intact. Results & Data Results & Data ([facility]) Vital Signs (Past 12 Hours) Vital Signs Temp Pulse Resp BP Pulse Ox O2 Del Method 01/26/22 16:37 37.0 C 70 16 149/87 H 92 01/26/22 14:33 36.8 C 67 18 132/80 91 Room Air 01/26/22 10:20 Room Air 01/26/22 07:28 37.0 C 68 18 136/85 90 Room Air Laboratory Results Short CBC 01/26/22 Range/Units 07:43 WBC 8.64 (4.8-10.8) K/ul Hgb 15.2 (12.0-16.0) g/dl Hct 44.6 (34.1-44.9) % Plt Count 62 L (130-400) K/uL [facility] 01/26/22 07:43 Sodium 136 Potassium 3.7 Chloride 99 Carbon Dioxide 29 BUN 13 Creatinine 0.69 Glucose 98 Calcium 9.4 Medications Administered Current Inpatient Medications Acetaminophen (Acetaminophen 325 Mg Tab) 650 mg PO Q4H PRN PRN Reason: pain/fever Stop: 02/23/22 00:44 Last Admin: 01/25/22 08:01 Dose: 650 mg Alprazolam (Alprazolam 0.5 Mg Tablet) 0.5 mg PO QID PRN PRN Reason: Anxiety Stop: 02/23/22 00:44 Last Admin: 01/26/22 14:52 Dose: 0.5 mg Cyclobenzaprine HCl (Cyclobenzaprine Hcl 10 Mg Tab) 10 mg PO BID PRN PRN Reason: Muscle Spasm Stop: 02/23/22 00:44 Last Admin: 01/25/22 02:27 Dose: 10 mg Enoxaparin Sodium (Enoxaparin Inj 40 Mg/0.4 Ml Syr) 40 mg SQ QAM [facility] Stop: 02/25/22 08:59 Last Admin: 01/26/22 10:28 Dose: 40 mg Escitalopram Oxalate (Escitalopram Oxalate 10 Mg Tab) 10 mg PO QAM [facility] Stop: 02/23/22 08:59 Last Admin: 01/26/22 08:38 Dose: 10 mg Escitalopram Oxalate (Escitalopram Oxalate 20 Mg Tab) [facility] [place] Stop: 02/23/22 08:59 Last Admin: 01/26/22 08:38 Dose: 20 mg Fenofibrate (Fenofibrate Nanocrystallized 145 Mg Tablet) 145 mg PO DAILY COUNT [facility]CLUD[facility] Stop: 02/23/22 08:59 Last Admin: 01/26/22 08:39 Dose: 145 mg Hydromorphone HCl (Hydromorphone Inj 0.5 Mg/0.5 Ml Syr) 0.5 mg IV Q3H PRN PRN Reason: severe pain (6-10) Stop: 02/07/22 00:44 Ondansetron HCl (Ondansetron Inj 2 Mg/Ml 2 Ml Vial) 4 mg IV Q6H PRN PRN Reason: Nausea Stop: 02/23/22 00:44 Last Admin: 01/26/22 14:53 Dose: 4 mg Oxycodone/Acetaminophen (Oxycodone/Acetaminophen 5mg/325mg Tab) 1 tab PO Q4H PRN PRN Reason: severe pain (6-10) Stop: 02/09/22 17:35 Pantoprazole Sodium (Pantoprazole 40 Mg Tab) [facility] [place] Stop: 02/23/22 08:59 Last Admin: 01/26/22 08:39 Dose: 40 mg Polyethylene Glycol (Polyethylene (Miralax) 17 Gm Pack) 17 gm PO DAILY PRN PRN Reason: Constipation Stop: 02/23/22 00:44
[2022-01-26] MEDS: oxyCODONE/ACETAMINOPHEN 5mg/325mg TAB PO PRN (21:51)
[2022-01-27] MEDS: HYDROmorphone INJ 0.5 MG/0.5 ML SYR IV PRN ×2 (03:09→09:16)
[2022-01-27] MEDS: oxyCODONE/ACETAMINOPHEN 5mg/325mg TAB PO PRN (07:59)
[2022-01-27] MEDS: ESCITALOPRAM OXALATE 10 MG TAB PO SCH (08:00)
[2022-01-27] MEDS: ESCITALOPRAM OXALATE 20 MG TAB PO SCH (08:00)
[2022-01-27] MEDS: PANTOprazole 40 MG TAB PO SCH (08:00)
[2022-01-27] MEDS: ENOXAPARIN INJ 40 MG/0.4 ML SYR SQ SCH (08:01)
[2022-01-27] MEDS: ALPRAZolam 0.5 MG TABLET PO PRN ×2 (08:03→16:09)
[2022-01-27 08:29] LABS: Hematocrit (blood only) 44.4 % (34.1-44.9); Mean Corpuscular Hemoglobin 29.4 pg (25.0-34.0); Mean Corpuscular Hgb Conc 33.8 g/dL (32.0-36.0); Mean Corpuscular Volume 87.1 fL (80.0-100.0); RDW Coefficient of Variation 12.6 % (11.5-14.5); RDW Standard Deviation 40.1 fL (36.4-46.3); White Blood Count 9.39 K/ul (4.8-10.8)
[2022-01-27 09:00] LABS: Mean Platelet Volume 14.6 fL (9.4-12.3); Platelet Count 53 K/uL (130-400)
[2022-01-27] MEDS ORDERED: oxyCODONE HCL IR 5 MG TAB (IMMEDIATE RELEASE) PO PRN (11:31)
--- NOTE | 2022-01-27 15:03 | Discharge Summary ---
Date of Service January 27, 2022 Principal Diagnosis Osteoporotic compression fracture of spine Severe pain secondary to compression fracture Thrombocytopenia Discharge Exam CONSTITUTIONAL: WNWD, vitals as above, generally well-appearing, NAD EYES: normal conjunctivae, no scleral icterus ENT: external ear and nose normal, MMM NECK: trachea midline RESPIRATORY: clear to auscultation bilaterally, no crackles, rales or wheezes, normal respiratory effort CARDIOVASCULAR: regular rate and rhythm, S1 and 2 heard without murmurs, gallops or rubs, no JVD, no peripheral edema CHEST: inspection of chest was normal GASTROINTESTINAL: soft, nontender, ND, obese, no guarding MUSCULOSKELETAL: strength 5/5 throughout, moving around easier, head is normocephalic and atraumatic, SKIN: warm and dry, NEUROLOGIC: CN 2-12 grossly intact, no sensory deficit, normal cognition, normal speech, no tremor PSYCHIATRIC: alert cooperative and oriented to person, place and time. Euthymic mood, makes good eye contact, language grossly intact, recent and remote memory grossly intact. Discharge Data Allergies Allergy/AdvReac Type Severity Reaction Status Date / Time NSAIDS (Non-Steroidal Allergy Unknown THROMBOCYTO Verified 01/23/22 21:26 Anti-Inflamma PENIA sumatriptan AdvReac Intermediate PANIC Verified 01/23/22 21:26 ATTACKS ketorolac AdvReac Mild SKIN Verified 01/23/22 21:26 IRRITATION Consultations 01/24/22 08:00 Consult Orthopedic Surgery Routine 01/24/22 15:07 Consult Orthopedic Surgery Routine Ordered Studies 01/23/22 20:12 CT lumbar spine wo con Urgent Hospital Course (1) Osteoporotic compression fracture of spine: (2) Thrombocytopenia: (3) GERD (gastroesophageal reflux disease): (4) Anxiety: Plan A 66-year-old female with past medical history significant for mixed hyperlipidemia, prediabetes, obesity, diverticulosis of colon, GERD, history of depression, generalized anxiety disorder, history of ventral hernia, ongoing t obacco use, presents with severe back pain. Found to have compression fractures on imaging. Likely osteoporotic in nature. Seen by orthopedics who recommend TLSO brace and physical therapy. She was improved with narcotics and required some trial of different agents before feeling improvement to a reasonable level with oxycodone 10mg. She was discharged in stable condition with close PCP follow-up and encouraged to discuss treatment options for osteoporosis. Noted to have thrombocytopenia on labwork. Appears to be chronic, but little to no workup on this in her current outpatient records. Recommend discussion of this during next PCP visit. Total Time Total Time Spent Total Time Spent (In Minutes): 60 Discharge Plan Discharge Items Patient Disposition: Home - Self-Care Reason For Visit: BACK PAIN Discharge Diagnosis: Osteoporotic compression fracture of spine Severe pain secondary to compression fracture Thrombocytopenia Condition on Discharge: Good Activity: Resume your previous activity Non-emergency contact: Primary Care Provider Call non-emergency contact if: you have any medication questions, your symptoms worsen, your pain is not controlled, your pain is worsening and your pain is unusual for you Follow-up/Referrals: Jessie Mccauley M.D. [Primary Care Provider] - 02/07/22 10:15 am Diet: Carb Consistent or DM2 and Heart Healthy Addtl Attending Provider Instructions: Please take all medications as instructed on discharge list below. It is recommended that you follow-up with your primary care doctor at the time and date above. After checking, this was the first available for this provider. If you would prefer to see a [facility] provider you may be able to be seen earlier post hospital stay. To help reduce the amount of oxycodone needed, consider taking Tylenol 1000 mg every 8 hours which you can take consistently in the short-term. Remember that narcotics make you constipated and it will be important to have a daily bowel movement. To achieve this you may need to use stool softeners or [id number] laxative such as MiraLAX. You have been provided a finite amount of oxycodone to take for help with pain control. Please do not mix this with your Xanax and if you need to take both separate them by at least 2 hours. Do not mix Xanax oxycodone or the both of them together with alcohol, and it is recommended that you do not drive while taking these medicines. Please discuss with your primary care doctor the risks and benefits of osteoporosis treatments. You have been found to have a low platelet level which may give you an increased tendency to bleed. Please avoid aspirin or other NSAIDs (nonsteroidal anti-inflammatory drugs) and discuss the workup with your primary care physician on followup. You may need to be referred to a ship scaler. You have been provided a rigid TLSO brace to be worn with activity or ambulation. You do not need to wear the brace when in a chair or when lying down. Outpatient physical therapy is recommended. It was a pleasure taking care of you! Please call if you have any questions or problems. You can reach a [facility] hospitalist on duty at [facility] 24 hours a day by calling [phone]. Take care of yourself. Tootie Lepe, DO [facility] Hospitalist Pending Studies at Discharge: No Stand-Alone Forms: My [facility] Medications and DC Order Prescriptions: New oxycodone 10 mg tablet 5 - 10 mg PO Q8H PRN (Reason: severe pain) Qty: 30 0RF Continued cyclobenzaprine 10 mg tablet 10 mg PO BID PRN (Reason: Muscle Spasm) escitalopram oxalate 10 mg tablet 10 mg PO QAM escitalopram oxalate 20 mg tablet 20 mg PO QAM alprazolam 0.5 mg tablet 0.5 mg PO QID PRN (Reason: Anxiety) omeprazole 20 mg capsule,delayed release(DR/EC) 20 mg PO QAM fenofibrate nanocrystallized 145 mg tablet 145 mg PO DAILY Discharge Orders: Discharge Order (Routine); Ordered 01/27/22 Ordered By: Tootie Lepe Admission Data Admit Date/Time: 01/23/22 23:38 Attending Provider: Tootie Lepe Admit Provider: Kwame Luong Primary Care Provider: Jessie Mccauley Other Providers: Williams Mixon Brian A
[2022-01-27] MEDS: FENOFIBRATE NANOCRYSTALLIZED 145 MG TABLET PO SCH (15:36)
[2022-01-27] MEDS: ACETAMINOPHEN 325 MG TAB PO PRN (16:09)
== END 2022-01-27 16:50 | disposition home or self-care (01) | DRG 544 ==
LOC: ED 19:32 → SUATTDRO 23:38 → EDINP 23:38 → 3N 01-24 08:10

== ENCOUNTER 2023-09-19 16:35 | Inpatient (IN) ==
--- NOTE | 2023-09-19 16:56 | ED Triage Note ---
Date of Service September 19, 2023 Provider in Triage Author: Preethi Daly History of Present Illness This patient was briefly evaluated while in triage. An abbreviated physical exam was performed. This patient is a 68-year-old Female who presents to the ED for evaluation of "I messed my back up more." States she was at [facility] ED twice this week. Was admitted overnight and had MRI completed which was consistent with 2 compression fractures in the lumbar region. States no new injury since admission. Reports pain is 9/10 and positional. States "I was told to leave after I saw Physical Therapy and we had this whole setup." Physical Exam VITALS: Vitals are noted on the nurse's note and reviewed by myself. GENERAL: This is a 68 year old female, in no acute distress, nondiaphoretic, well-developed well-nourished. SKIN: No obvious rashes, edema, erythema HEAD: Normocephalic atraumatic. EYES: Conjunctivae without injection, sclerae without icterus. NECK: No JVD. LUNGS: No retractions or accessory muscle use. MUSCULOSKELETAL: Presents in a wheelchair. NEURO: Patient was alert and oriented to person place and time. No focal neurological deficits. Initial orders for labs and / or imaging were waiting to be placed while attempting to obtain medical records from [facility] ED, and patient was placed in the waiting area until a bed is available. Please see further documentation for the full ED course.
--- NOTE | 2023-09-19 19:39 | Emergency Department Note ---
History of Present Illness General Chief complaint: Back Injury/Pain Time Seen by Provider: 09/19/23 19:26 History of Present Illness This is a 68-year-old female with a history of osteoporosis that presents to the emergency department via private vehicle accompanied by with complaints of "back pain". The patient states that for the past 2 weeks she has been experiencing low back pain. It is central in the low back area. It is not favoring left or right. It does not radiate down the legs. No associated abdominal pain. No nausea or vomiting. No numbness or tingling in the genital region. No leg weakness. No bowel or bladder incontinence. Patient does note that she was recently seen at [facility] x 2 and was admitted on the first visit and then discharged home. She also notes that she returned this past Monday for evaluation of ongoing low back pain and was discharged home. She states that recently she was taking Percocet but noted reaction and therefore stopped the medication. She continues with low back pain that is significant in nature. Per review of the record from [facility] there is CT scan of the abdomen/pelvis with IV contrast as well as CT of the thorax with contrast performed on 09/17/2023 at 1310 HRS. Radiology impressions reveal: #1.few tree-in-bud nodularities in the upper lobes may reflect infectious/inflammatory pneumonitis. Multiple subcentimeter pulmonary nodules warrant follow-up. #2. Question mild inflammatory change about the distal sigmoid colon with diverticulosis. Correlate for mild developing uncomplicated diverticulitis. Consider nonemergent colonoscopy when patient condition permits to exclude underlying malignancy. #3. Advanced generative change of the lumbar spine with compression deformities at L2-L3 and L3-L4 which were better depicted on recent CT lumbar spine. #4. Small fat-containing supraumbilical hernia with mild associated fat stranding. Correlate with physical examination to ensure reducibility. There is also a CT scan of the lumbar spine performed on 09/11/2023 at 2333. This was without contrast. Radiology report reveals superior endplate compression fractures of L2 and L3 vertebral bodies with nearly 30 to 40% reduction in height of L2 vertebral body and 20 to 30% reduction in height of L3 vertebral body, significant interval progression since previous study and L2 vertebral body with interval development in L3 vertebral body. These appear to be osteoporotic in nature/posttraumatic. Advanced degenerative changes in the lumbar spine with multilevel disc bulges, most significant at the L4-L5 and L5- S1 levels. Home Medications Medication Instructions Recorded Confirmed Type alprazolam 0.5 mg tablet 0.5 mg PO QID PRN Anxiety 01/23/22 03/21/23 History escitalopram oxalate 10 mg tablet 10 mg PO QAM 01/23/22 03/21/23 History escitalopram oxalate 20 mg tablet 20 mg PO QAM 01/23/22 03/21/23 History omeprazole 20 mg capsule,delayed 20 mg PO QAM #90 caps 01/24/23 03/21/23 Rx release ipratropium bromide 21 mcg (0.03 2 spray intranasal TID #30 mL 02/23/23 03/21/23 Rx %) nasal spray peg [id number] [id number] See Rx Instructions PO .COMPLEX #2 03/14/23 Rx 178.7-7.3-0.5-1.12-0.9 gram oral mL soln (Suflave) ondansetron 4 mg disintegrating 4 mg PO Q8H PRN nausea and 03/20/23 03/21/23 Rx tablet vomiting #7 tabs fenofibrate nanocrystallized 145 145 mg PO QAM 03/21/23 03/21/23 History mg tablet Allergies Allergy/AdvReac Type Severity Reaction Status Date / Time NSAIDS (Non-Steroidal Allergy Unknown THROMBOCYTO Verified 03/21/23 10:10 Anti-Inflamma PENIA sumatriptan AdvReac Intermediate PANIC Verified 03/21/23 10:10 ATTACKS ketorolac AdvReac Mild SKIN Verified 03/21/23 10:10 IRRITATION Past Med/Surg History Medical History Anxiety Chronic pain Compression fracture hx - chronic pain Depression Diverticulitis hx GERD (gastroesophageal reflux disease) History of anesthesia reaction decreased SPo2 during the ventral hernia surgery. patient had to stay overnight post op Osteoporotic compression fracture of spine (01/23/22) Post traumatic stress disorder (PTSD) Thrombocytopenia chronic Vocal cord polyp monitoring - scheduled in October 2023 with ENT Surgical History H/O bilateral breast reduction surgery H/O tooth extraction H/O ventral hernia repair H/O: hysterectomy ZARINA with BSo History of appendectomy History of back surgery lumbar surgery (in office at time of injury) History of bowel resection (~2014) r/t perforatedf diverticulitis History of cholecystectomy History of colonoscopy History of esophagogastroduodenoscopy (EGD) Family History Father Colorectal cancer Brother Colorectal cancer Denies family history of Ovarian cancer Prostate cancer Myocardial infarction Breast cancer Social History Smoking Status: Unknown if ever smoked Tobacco Type: Cigarettes Age Started Using Tobacco: 22; Cigarettes Per Day: 40; Second Hand Exposure: Yes; Do You Dip or Chew Tobacco: No; Hx Alcohol Use: Yes Alcohol type: beer Hx Substance Use: Yes Last Used Substance Other:: 03/21/23 at 0300 Preferred Language: Welsh Communication Ability: Effective Visual Impairment: No Limitations Hearing Ability: Normal Day Guard Required: No Beliefs That Will Affect Care: None marital status: Current Living Situation: Spouse current occupational status: retired How many Children do You have: 4 Feels Safe at Home: Yes Childhood Exposure to Second-Hand Smoke: Yes Diet Comment: NO RED MEAT Dental Care, Regularly: No Physical Activity Frequency: Does not Exercise Seatbelt Use: always Sunscreen Use: No Assistive Devices: Denture - Upper, Denture - Lower, Glasses and Walker Review of Systems A total of 10 systems reviewed and were otherwise negative Physical Exam Vital Signs Vital Signs - 24 hr 09/19/23 16:54 09/19/23 20:55 09/19/23 20:55 Temperature 36.5 C Temperature Source Temporal Artery Scan Pulse Rate 66 61 Pulse Rate [Left Finger] 63 Respiratory Rate 19 18 18 Respiratory Effort / Characteristics Non-Labored Spontaneous Non-Labored Respiratory Depth Normal Normal Respiratory Pattern Regular Blood Pressure 154/83 H Blood Pressure [Right Arm] 135/77 Blood Pressure Mean 106 Blood Pressure Mean [Right Arm] 96 Pulse Oximetry 93 95 94 Oxygen Delivery Method Room Air Room Air Room Air Sepsis Recent Fever Within 48 Hours No Sepsis New/Unexplained Change in Mental Status N/A Sepsis Action Taken by Nursing No Action Required 09/19/23 22:05 Temperature Temperature Source Pulse Rate Pulse Rate [Left Finger] 60 Respiratory Rate 18 Respiratory Effort / Characteristics Non-Labored Respiratory Depth Normal Respiratory Pattern Regular Blood Pressure Blood Pressure [Right Arm] 132/78 Blood Pressure Mean Blood Pressure Mean [Right Arm] 96 Pulse Oximetry 94 Oxygen Delivery Method Room Air Sepsis Recent Fever Within 48 Hours Sepsis New/Unexplained Change in Mental Status Sepsis Action Taken by Nursing VITAL SIGNS - Vital signs and nursing notes were reviewed. Stable and afebrile. GENERAL -68-year-old female appearing her stated age who is in no acute distress. Communicates well with provider and answers questions appropriately. SKIN - Without rashes. 2, approximate 3 cm in length scars in the horizontal plane on the lateral aspects of the L-spine. No surrounding erythema or edema. No dehiscence HEAD - NC/AT. EYES - Sclera anicteric. EARS - No deformities of external structures noted on gross examination bilaterally. NOSE - Midline and without cyanosis. No epistaxis or purulent drainage noted. MOUTH/OROPHARYNX - Without perioral cyanosis. NECK - Neck with FROM. No nuchal rigidity. LUNGS - Chest wall symmetric without accessory muscle use, intercostals retractions, or central cyanosis. Normal vesicular breath sounds CTA B/L. No wheezes, rales, or rhonchi appreciated. CARDIAC - RRR with S1/S2. No murmur, rubs, or gallops appreciated. ABDOMEN - Abdominal contour normal without pulsations or visible masses. BS normoactive all four quadrants. No tenderness, palpable masses, hepatosplenomegaly, or ascites noted. EXTREMITIES - No clubbing or peripheral cyanosis. Patient able to stand, axial load and ambulate independently. +5/5 strength noted in UE/LE bilaterally. MUSCULOSKELETALthere is reproducible tenderness overlying the spinous processes of the L-spine. NEUROLOGIC - Cranial nerves II through XII grossly intact. PSYCH -alert, oriented and pleasant on exam. Course Administered Medications Miscellaneous (Remove Lidoderm Patch) 1 each N/A DAILY@2100 ELADIO Stop: 10/19/23 20:59 Last Admin: 09/19/23 20:41 Dose: Not Given Documented By: JEFF Discontinued Medications Ceftriaxone Sodium (Rocephin) 2,000 mg in 50 mls @ 100 mls/hr IV NOW STA Stop: 09/19/23 22:20 Last Admin: 09/19/23 22:26 Dose: Not Given Documented By: KMS Cefepime HCl (Maxipime) 2,000 mg in 20 mls @ 5 mls/min IV NOW STA; Protocol Stop: 09/19/23 22:26 Last Admin: 09/19/23 22:37 Dose: 5 mls/min Documented By: JEFF Lidocaine (Lidocaine 5% 1 Patch) 1 patch TD NOW STA Stop: 09/19/23 19:41 Last Admin: 09/19/23 20:40 Dose: Not Given Documented By: JEFF Morphine Sulfate (Morphine Sulfate 2 Mg/Ml Carp) 2 mg IV NOW STA Stop: 09/19/23 19:41 Last Admin: 09/19/23 20:31 Dose: 2 mg Documented By: JEFF Morphine Sulfate (Morphine Sulfate 2 Mg/Ml Carp) 2 mg IV NOW STA Stop: 09/19/23 21:35 Last Admin: 09/19/23 22:36 Dose: 2 mg Documented By: JEFF Ondansetron HCl (Ondansetron Inj 2 Mg/Ml 2 Ml Vial) 4 mg IV NOW STA Stop: 09/19/23 19:41 Last Admin: 09/19/23 20:31 Dose: 4 mg Documented By: JEFF Medical Decision Making Laboratory Data 09/19/23 20:25 09/19/23 20:25 Lab Results 09/19/23 09/19/23 Range/Units 20:25 20:53 WBC 8.47 (4.8-10.8) K/ul RBC 4.86 (4.20-5.40) M/uL Hgb 14.9 (12.0-16.0) g/dl Hct 43.8 (37.0-47.0) % MCV 90.1 (80.0-100.0) fL MCH 30.7 (25.0-34.0) pg MCHC 34.0 (32.0-36.0) g/dL RDW Std Deviation 41.0 (36.4-46.3) fL RDW Coeff of Deanne 12.6 (11.5-14.5) % Plt Count 59 L (130-400) K/uL MPV 14.5 H (9.4-12.4) fL Immature Gran % (Auto) 0.5 % Neut % (Auto) 61.5 % Lymph % (Auto) 21.1 % [place] % (Auto) 5.0 % Eos % (Auto) 11.5 % Baso % (Auto) 0.4 % Neut # (Auto) 5.22 (1.40-6.50) K/uL Lymph # (Auto) 1.79 (1.20-3.40) K/uL [place] # (Auto) 0.42 (0.11-0.59) K/uL Eos # (Auto) 0.97 H (0.00-0.50) K/uL Baso # (Auto) 0.03 (0.00-0.20) K/uL Immature Gran # (Auto) 0.04 (0.01-0.20) K/uL Platelet Estimate Decreased L (Normal) Sodium 136 (136-145) mmol/L Potassium 3.1 L (3.5-5.1) mmol/L Chloride 101 (98-107) mmol/L Carbon Dioxide 25 (21-32) mmol/L Anion Gap 10 (3-11) BUN 8 (6-23) mg/dl Creatinine 0.72 (0.6-1.2) mg/dl Est Cr Clr Drug Dosing 99.7 ml/min Est GFR ( Amer) 101.1 ml/min Est GFR (Non-Af Amer) 87.3 ml/min BUN/Creatinine Ratio 11.1 (10-20) Glucose 92 (70-99(Fasting)) mg/dl Calcium 8.6 (8.6-10.3) mg/dl Magnesium 1.4 L (1.7-2.4) mg/dl Total Bilirubin 0.7 (0.2-1.0) mg/dl AST 30 (13-39) U/L ALT 14 (7-52) U/L Alkaline Phosphatase 67 (34-104) U/L Total Protein 6.2 (6.0-8.3) gm/dl Albumin 3.5 (3.4-5.0) gm/dl Globulin 2.7 (2.5-4.0) gm/dl Albumin/Globulin Ratio 1.3 (0.9-2) Urine Color Dark Yellow Urine Appearance Cloudy A (Clear) Urine pH 5.5 (4.5-7.5) Ur Specific [place] 1.019 (1.000-1.030) Urine Protein Negative (Negative) Urine Glucose (UA) Negative (Negative) Urine Ketones Trace H (Negative) Urine Blood Negative (Negative) Urine Nitrite Negative (Negative) Urine Bilirubin Negative (Negative) Urine Urobilinogen Negative (Negative) Ur Leukocyte Esterase 2+ H (Negative) Urine WBC (Auto) >30 H (0-5) /hpf Urine RBC (Auto) 0-4 (0-4) /hpf U Hyaline Cast (Auto) 0 (0-5) /lpf U Epithel Cells (Auto) >30 H (0-5) /lpf Urine Bacteria (Auto) 4+ H (Negative) Imaging Data My Impression: L spine: L-spine compression deformities noted. MDM Narrative Patient was seen and evaluated as above in room D02a. Review was performed of triage nursing notes and vital signs. I did review pertinent previous visits and patient history. After obtaining a thorough history and physical examination the above work up was performed. Patient presents to us today for evaluation of low back pain over the past 2 weeks. Patient does note recent ED visit x 2 with admission to the hospital at [facility]. Patient notes that she has been experiencing continued pain. She denies any abdominal pain at the present time. She did note subjective fever recently. On examination she has tenderness overlying the L-spine. Options of care were discussed with the patient. IV access was established. Labs were drawn. I did review the patient's imaging reports from [facility] which are outlined in the HPI of this note. She had CT scans performed recently of the L-spine as well as abdomen/pelvis. The patient was medicated here with IV morphine x 2, IV Zofran for nausea. L-spine x-ray per my interpretation does reveal the compression fractures noted within the HPI as outlined on recent CT imaging. Labs reveal no leukocytosis or concerning anemia. Thrombocytopenia 59 similar to previous. Hypokalemia 3.1. Magnesium 1.4. Urinalysis reveals concern for possible infection. At this time in the setting of back pain, subjective fever with a UTI we will proceed with IV antibiotics. Initially ceftriaxone was ordered, but canceled and changed to cefepime for broader coverage. Furthermore, I am not convinced that the patient's low back pain is from the UTI, rather suspect it is likely from her underlying fractures. With the subjective fever we will also proceed with MRI of the L-spine with and without contrast to rule out infectious etiology in the spine as well. I do believe that inpatient management is warranted. I do not believe that she requires repeat CT imaging of the abdomen/pelvis note that this was performed just 2 days ago per report from [facility]. case discussed with the hospitalist service. Please refer to further documentation regarding her stay. Patient amenable to this plan. MRI pending at this time. GCS: 15 In the evaluation and treatment of this patient the following differential diagnoses were entertained: Lumbar spine fracture, sprain, strain, UTI, pyelonephritis, discitis, osteomyelitis, epidural abscess, cauda equina syndrome, among others Impression & Plan History of compression fracture of spine, Low back pain, UTI (urinary tract infection), Subjective fever, Hypokalemia, Thrombocytopenia Discharge Plan Visit Data Chief Complaint: Back Injury/Pain ED Provider: Man[facility] ED Midlevel Provider: Carlos Monroe Discharge Problem: History of compression fracture of spine, Low back pain, UTI (urinary tract infection), Subjective fever, Hypokalemia, Thrombocytopenia Patient Disposition: Admitted As Inpatient Condition: Good Forms Stand Alone Forms: Minuum Prescriptions Prescriptions: No Action omeprazole 20 mg capsule,delayed release(DR/EC) 20 mg PO QAM Qty: 90 1RF ipratropium bromide 21 mcg (0.03 %) spray,non-aerosol 2 spray intranasal TID Qty: 30 2RF Rx Instructions: administer into each nostril Suflave 178.7-7.3-0.5 gram recon soln See Rx Instructions PO .COMPLEX Qty: 2 0RF Rx Instructions: orally; TAKE FIRST DOSE AT 6 PM AND SECOND DOSE 6 HOURS PRIOR TO PROCEDURE BIN: [id number] PCN: [id number] GROUP: [id number] ondansetron 4 mg tablet,disintegrating 4 mg PO Q8H PRN (Reason: nausea and vomiting) Qty: 7 0RF fenofibrate nanocrystallized 145 mg tablet 145 mg PO QAM escitalopram oxalate 10 mg tablet 10 mg PO QAM escitalopram oxalate 20 mg tablet 20 mg PO QAM alprazolam 0.5 mg tablet 0.5 mg PO QID PRN (Reason: Anxiety) Referrals Referrals: Surinder Hope III, CRNP [Primary Care Provider] -
[2023-09-19] MEDS: ONDANSETRON INJ 2 MG/ML 2 ML VIAL IV STA (20:31)
[2023-09-19] MEDS: MoRPHine SULFATE 2 MG/ML CARP IV STA ×2 (20:31→22:36)
[2023-09-19] MEDS: LIDOCAINE 5% 1 PATCH TD STA (20:40)
[2023-09-19 21:13] LABS: Basophils # (auto) 0.03 K/uL (0.00-0.20); Basophils % (auto) 0.4 %; Eosinophils # (auto) 0.97 K/uL (0.00-0.50); Eosinophils % (auto) 11.5 %; Hematocrit (blood only) 43.8 % (37.0-47.0); Hemoglobin 14.9 g/dl (12.0-16.0); Immature Granulocytes # (auto) 0.04 K/uL (0.01-0.20); Immature Granulocytes % (auto) 0.5 %; Lymphocytes # (auto) 1.79 K/uL (1.20-3.40); Lymphocytes % (auto) 21.1 %; Mean Corpuscular Hemoglobin 30.7 pg (25.0-34.0); Mean Corpuscular Volume 90.1 fL (80.0-100.0); Mean Platelet Volume 14.5 fL (9.4-12.4); Monocytes # (auto) 0.42 K/uL (0.11-0.59); Neutrophils # (auto) 5.22 K/uL (1.40-6.50); Neutrophils % (auto) 61.5 %; Platelet Count 59 K/uL (130-400); Platelet Estimate Decreased (Normal); RDW Coefficient of Variation 12.6 % (11.5-14.5); Red Blood Count 4.86 M/uL (4.20-5.40); White Blood Count 8.47 K/ul (4.8-10.8)
[2023-09-19 21:14] LABS: Albumin Globulin Ratio 1.3 (0.9-2); Albumin Level 3.5 gm/dl (3.4-5.0); BUN Creatinine Ratio 11.1 (10-20); Bilirubin,Total 0.7 mg/dl (0.2-1.0); Calcium 8.6 mg/dl (8.6-10.3); Creatinine Clr Calc Pharmacy 99.7 ml/min; Est GFR (African American) 101.1 ml/min; Est GFR (Non-African American) 87.3 ml/min; Globulin 2.7 gm/dl (2.5-4.0); Potassium 3.1 mmol/L (3.5-5.1); Total Protein 6.2 gm/dl (6.0-8.3)
[2023-09-19 21:21] LABS: Appearance Urine Cloudy (Clear); Bacteria Urine Automated 4+ (Negative); Bilirubin Urine Negative (Negative); Blood Urine Negative (Negative); Color Urine Dark Yellow; Epithelial Cell Urine Auto >30 /lpf (0-5); Glucose Urine UA Negative (Negative); Ketones Urine Trace (Negative); Leukocyte Esterase Urine 2+ (Negative); Nitrite Urine Negative (Negative); Protein Urine Negative (Negative); RBC Urine Automated 0-4 /hpf (0-4); Specific Gravity Urine 1.019 (1.000-1.030); Urobilinogen Urine Negative (Negative); WBC Urine Automated >30 /hpf (0-5); pH Urine 5.5 (4.5-7.5)
[2023-09-19 21:41] LABS: Cast Urine Automated 0 /lpf (0-5)
[2023-09-19] MEDS: cefTRIAXone SODIUM 2,000 MG/50 ML BAG IV STA (22:26)
[2023-09-19] MEDS: CEFEPIME 2,000 MG/20 ML VIAL IV STA (22:37)
--- NOTE | 2023-09-19 23:01 | History & Physical Report ---
Date of Service September 19, 2023 Assessment & Plan (1) Closed compression fracture of L1 vertebra: (2) Closed compression fracture of L2 vertebra: (3) Intractable low back pain: (4) Hypokalemia: (5) Hypomagnesemia: (6) UTI (urinary tract infection): (7) Diverticulitis: (8) GERD (gastroesophageal reflux disease): (9) Depression: (10) Anxiety: Plan Closed acute L1 superior endplate compression fracture/acute on chronic L2 compression fracture/intractable low back pain- No suggestion of pathologic fractures Seems more consistent with osteoporotic cause Acetaminophen 650 mg by mouth every 6 hours as needed for mild pain or fever Morphine sulfate 2 mg IV every 3 hours as needed for moderate pain Morphine sulfate 4 mg IV every 3 hours as needed for severe pain Consult orthopedic spine surgery once it is determined who is on-call Will need PT/OT MRI was ordered to confirm acute nature of injury, and to confirm that there was not any sign of epidural abscess or discitis associated with seeding from UTI and/or diverticulitis UTI/diverticulitis- NPO Cefepime 2 g IV every 12 hours NSS + KCl 20 mill equivalents at 80 mL/h Pantoprazole 40 mg IV daily I have asked for copies of films of her abdomen and pelvis that were recently performed at [facility] Hypomagnesemia/hypokalemia- Magnesium 1.4, will give total 3 g of mag sulfate IV Potassium 3.1 Corrected IV fluids as noted above Recheck laboratories in a.m. Thrombocytopenia- Platelets 59 on admission, toward the upper end of her range Follow serially Avoid NSAIDs History of Present Illness Chief Complaint: The patient presents to the emergency department with an acute worsening over the past 2 weeks of her chronic low back pain. Primary Care Provider: Surinder Hope, III, SANNA The patient is a 68-year-old female with past medical history including PTSD, thrombocytopenia, GERD, anxiety, history of lumbar compression fractures, dyslipidemia and obesity. She had been recently assessed with a CT scan of the lumbar spine at [facility] on 09/11/2023, which showed superior endplate compression fractures of L2 and L3 vertebral bodies with nearly 30 to 40% reduction in the height of the L2 vertebral body and 20 to 30% reduction in height of L3 vertebral body, with noted significant interval progression since previous study. They appeared to be osteoporotic in nature/posttraumatic. The patient also had a CT scan of abdomen and pelvis on 09/17/2023 at [facility], which showed concerns regarding possible infectious/inflammatory pneumonitis, multiple subcentimeter pulmonary nodules that warranted follow-up, and findings concerning for mild developing uncomplicated diverticulitis. This evening in the emergency department the patient did have an MRI of her lumbar spine which showed acute L1 superior endplate fracture, and acute on chronic L2 superior endplate fracture, both amenable to kyphoplasty. The patient did also report some mild generalized abdominal discomfort, and did have 1 episode of loss of bowel control while in the ED. She did have an episode of feeling warm earlier in the week Allergies Allergy/AdvReac Type Severity Reaction Status Date / Time NSAIDS (Non-Steroidal Allergy Unknown THROMBOCYTO Verified 03/21/23 10:10 Anti-Inflamma PENIA sumatriptan AdvReac Intermediate PANIC Verified 03/21/23 10:10 ATTACKS ketorolac AdvReac Mild SKIN Verified 03/21/23 10:10 IRRITATION Home Medications Medication Instructions Recorded Confirmed Type alprazolam 0.5 mg tablet 0.5 mg PO QID PRN Anxiety 01/23/22 03/21/23 History escitalopram oxalate 10 mg tablet 10 mg PO QAM 01/23/22 03/21/23 History escitalopram oxalate 20 mg tablet 20 mg PO QAM 01/23/22 03/21/23 History omeprazole 20 mg capsule,delayed 20 mg PO QAM #90 caps 01/24/23 03/21/23 Rx release ipratropium bromide 21 mcg (0.03 2 spray intranasal TID #30 mL 02/23/23 03/21/23 Rx %) nasal spray peg 3350-sod sulf,[id number]-egg-itd See Rx Instructions PO .COMPLEX #2 03/14/23 Rx 178.7-7.3-0.5-1.12-0.9 gram oral mL soln (Suflave) ondansetron 4 mg disintegrating 4 mg PO Q8H PRN nausea and 03/20/23 03/21/23 Rx tablet vomiting #7 tabs fenofibrate nanocrystallized 145 145 mg PO QAM 03/21/23 03/21/23 History mg tablet Past Med/Surg History Medical History (Updated 09/20/23 @ 05:11 by Dusty Downs MD) Diverticulitis Chronic pain History of anesthesia reaction decreased SPo2 during the ventral hernia surgery. patient had to stay overnight post op Vocal cord polyp monitoring - scheduled in October 2023 with ENT Osteoporotic compression fracture of spine (01/23/22) Anxiety GERD (gastroesophageal reflux disease) Thrombocytopenia chronic Compression fracture hx - chronic pain Post traumatic stress disorder (PTSD) Depression Surgical History H/O ventral hernia repair H/O bilateral breast reduction surgery History of esophagogastroduodenoscopy (EGD) History of colonoscopy History of back surgery lumbar surgery (in office at time of injury) History of appendectomy History of cholecystectomy H/O: hysterectomy ZARINA with BSo H/O tooth extraction History of bowel resection (~2014) r/t perforatedf diverticulitis Family History Father Colorectal cancer Brother Colorectal cancer Denies family history of Ovarian cancer Prostate cancer Myocardial infarction Breast cancer Social History Smoking Status: Current every day smoker Tobacco Type: Cigarettes Age Started Using Tobacco: 22; Cigarettes Per Day: 2 a day; Second Hand Exposure: Yes; Do You Dip or Chew Tobacco: No; Hx Alcohol Use: No Hx Substance Use: No Preferred Language: Polish Communication Ability: Effective Visual Impairment: No Limitations Hearing Ability: Normal Music Writer Required: No Beliefs That Will Affect Care: None marital status: Current Living Situation: Spouse current occupational status: retired How many Children do You have: 4 Feels Safe at Home: Yes Safety Concerns: Feels Safe At This Time Childhood Exposure to Second-Hand Smoke: Yes Diet Comment: NO RED MEAT Dental Care, Regularly: No Physical Activity Frequency: Does not Exercise Seatbelt Use: always Sunscreen Use: No Assistive Devices: Denture - Upper, Glasses and Walker Review of Systems Review of Systems: The patient denies chest pain, palpitations, shortness of breath, dyspnea on exertion, cough, lower extremity swelling, sore throat, fevers, chills, sweats, nausea, vomiting, diarrhea , constipation, blood in urine or stool, dysuria, urinary frequency or urgency, lightheadedness, dizziness, headache, rash, abnormal bruising or bleeding, focal or generalized weakness, numbness or tingling in arms, generalized arthralgias or myalgias, or night sweats. The review of systems is otherwise negative other than for that already noted above, and at least 10 systems have been reviewed. Physical Exam Physical Exam: The patient is awake, alert and oriented 3, well developed and well nourished, normocephalic and atraumatic, lying in bed and in no acute distress. HEENT--PERRL, EOMI, mucous membranes and oropharynx dry. Neck--supple. No JVD. No bruits. Thyroid normal, trachea midline, no adenopathy. Heart--normal S1 and S2. No murmurs, rubs or gallops. Lungs--clear bilaterally, no respiratory distress, no accessory muscle use. Abdomen--mild generalized discomfort. Morbidly obese Extremities-- No edema. Dermatologic--normal skin turgor, normal color, no abnormal lymph nodes, no rash. Neurologic--cranial nerves II through XII grossly intact. Rheumatologic--normal range of motion. Psychiatric--normal affect. Results & Data Results & Data Vital Signs (Past 12 Hours) Vital Signs Temp Pulse Pulse Resp BP BP Pulse Ox 09/19/23 22:05 60 18 132/78 94 09/19/23 20:55 61 18 94 09/19/23 20:55 63 18 135/77 95 09/19/23 16:54 36.5 C 66 19 154/83 H 93 O2 Del Method 09/19/23 22:05 Room Air 09/19/23 20:55 Room Air 09/19/23 20:55 Room Air 09/19/23 16:54 Room Air Laboratory Results Laboratory Results WBC 8.47 K/ul (4.8-10.8) 09/19/23 20:25 RBC 4.86 M/uL (4.20-5.40) 09/19/23 20:25 Hgb 14.9 g/dl (12.0-16.0) 09/19/23 20:25 Hct 43.8 % (37.0-47.0) 09/19/23 20:25 MCV 90.1 fL (80.0-100.0) 09/19/23 20:25 MCH 30.7 pg (25.0-34.0) 09/19/23 20:25 MCHC 34.0 g/dL (32.0-36.0) 09/19/23 20: RDW Std Deviation 41.0 fL (36.4-46.3) 09/19/23 20: RDW Coeff of Deanne 12.6 % (11.5-14.5) 09/19/23: Plt Count 59 K/uL (130-400) L 09/19/23 20: MPV 14.5 fL (9.4-12.4) H 09/19/23 20:25 Immature Gran % (Auto) 0.5 % 09/19/23 20: Neut % (Auto) 61.5 % 09/19/23 20: Lymph % (Auto) 21.1 % 09/19/23 20: Estill % (Auto) 5.0 % 09/19/23 20: Eos % (Auto) 11.5 % 09/19/23 20: Baso % (Auto) 0.4 % 09/19/23 20: Neut # (Auto) 5.22 K/uL (1.40-6.50) 09/19/23 20:25 Lymph # (Auto) 1.79 K/uL (1.20-3.40) 09/19/23 20:25 Estill # (Auto) 0.42 K/uL (0.11-0.59) 09/19/23 20:25 Eos # (Auto) 0.97 K/uL (0.00-0.50) H 09/19/23 20:25 Baso # (Auto) 0.03 K/uL (0.00-0.20) 09/19/23 20:25 Immature Gran # (Auto) 0.04 K/uL (0.01-0.20) 09/19/23 20:25 Platelet Estimate Decreased (Normal) L 09/19/23 20:25 Sodium 136 mmol/L (136-145) 09/19/23 20:25 Potassium 3.1 mmol/L (3.5-5.1) L 09/19/23 20:25 Chloride 101 mmol/L (98-107) 09/19/23 20:25 Carbon Dioxide 25 mmol/L (21-32) 09/19/23 20:25 Anion Gap 10 (3-11) 09/19/23 20:25 BUN 8 mg/dl (6-23) 09/19/23 20:25 Creatinine 0.72 mg/dl (0.6-1.2) 09/19/23 20:25 Est Cr Clr Drug Dosing 99.7 ml/min 09/19/23 20:25 Est GFR ( Amer) 101.1 ml/min 09/19/23 20:25 Est GFR (Non-Af Amer) 87.3 ml/min 09/19/23 20:25 BUN/Creatinine Ratio 11.1 (10-20) 09/19/23 20:25 Glucose 92 mg/dl (70-99(Fasting)) 09/19/23 20:25 Calcium 8.6 mg/dl (8.6-10.3) 09/19/23 20: Magnesium 1.4 mg/dl (1.7-2.4) L 09/19/23 20:25 Total Bilirubin 0.7 mg/dl (0.2-1.0) 09/19/23 20:25 AST 30 U/L (13-39) 09/19/23 20:25 ALT 14 U/L (7-52) 09/19/23 20:25 Alkaline Phosphatase 67 U/L (34-104) 09/19/23 20:25 Total Protein 6.2 gm/dl (6.0-8.3) 09/19/23 20:25 Albumin 3.5 gm/dl (3.4-5.0) 09/19/23 20:25 Globulin 2.7 gm/dl (2.5-4.0) 09/19/23 20:25 Albumin/Globulin Ratio 1.3 (0.9-2) 09/19/23 20:25 Urine Color Dark Yellow 09/19/23 20:53 Urine Appearance Cloudy (Clear) A 09/19/23 20:53 Urine pH 5.5 (4.5-7.5) 09/19/23 20:53 Ur Specific Viola 1.019 (1.000-1.030) 09/19/23 20:53 Urine Protein Negative (Negative) 09/19/23 20:53 Urine Glucose (UA) Negative (Negative) 09/19/23 20:53 Urine Ketones Trace (Negative) H 09/19/23 20:53 Urine Blood Negative (Negative) 09/19/23 20:53 Urine Nitrite Negative (Negative) 09/19/23 20:53 Urine Bilirubin Negative (Negative) 09/19/23 20:53 Urine Urobilinogen Negative (Negative) 09/19/23 20:53 Ur Leukocyte Esterase 2+ (Negative) H 09/19/23 20:53 Urine WBC (Auto) >30 /hpf (0-5) H 09/19/23 20:53 Urine RBC (Auto) 0-4 /hpf (0-4) 09/19/23 20:53 U Hyaline Cast (Auto) 0 /lpf (0-5) 09/19/23 20:53 U Epithel Cells (Auto) >30 /lpf (0-5) H 09/19/23 20:53 Urine Bacteria (Auto) 4+ (Negative) H 09/19/23 20:53 Impressions Lumbar Spine MRI 09/19/23 21:51 Exam(s): MRI L SPINE W/WO Contrast IV Amt: 12cc gadavist EXAM: MR Lumbar Spine Without and With Intravenous Contrast CLINICAL HISTORY: Reason for exam: low back pain, fractures, subjective fever. TECHNIQUE: Magnetic resonance images of the lumbar spine without and with intravenous contrast in multiple planes. CONTRAST: Patient received 12cc gadavist of IV contrast COMPARISON: CT Lumber spine 02-07-2022. FINDINGS: Vertebrae: There are 5 lumbar type vertebral bodies with a mild levoscoliosis and normal lumbar lordosis. There is an acute 2 column superior part fracture of the L1 vertebral body with extensive bone marrow edema and 34% loss of vertebral body height. There are acute or chronic 2 column fractures of the superior endplate of L2 and L3 moderate bone marrow edema and 63% loss of vertebral body height at L2 and 37% loss of vertebral body height L3. Spinal cord: The conus is normal size, shape and signal characteristics, terminating at L1-L2. No abnormal enhancement. Soft tissues: Extensive subcutaneous edema at T12-S3. IMPRESSION: There is an acute 2 column superior endplate fracture of the L1 vertebral body with 34% loss of vertebral body height. This fracture is amenable to vertebroplasty or kyphoplasty. Acute and chronic 2 column fractures on the superior endplates of L2 and L3 with 63% and 37% loss of vertebral body height respectively. These fractures are amenable to vertebroplasty or kyphoplasty. Electronically signed by: Ruth Ann Almeida MD 09/20/23 01:24 AM Code Status & VTE Plan Code Status Full code VTE Prophylaxis Plan VTE Prophylaxis will be ordered: Yes PG Care Time/CCT Total # of Minutes Spent Total Time Spent with Patient: Total time spent is greater than 50% in coordination of care (as documented) at patient's floor/unit and/or counseling patient: Coding Level of Care Code 72851 INT INP/OBS CARE 3/75MIN Diagnoses Closed compression fracture of L1 vertebra S32.010A Closed compression fracture of L2 vertebra S32.020A Intractable low back pain M54.59 Hypokalemia E87.6 Hypomagnesemia E83.42 UTI (urinary tract infection) N39.0 Diverticulitis K57.92 GERD (gastroesophageal reflux disease) K21.9 Depression F32.9 Anxiety F41.9
[2023-09-19 23:21] LABS: Magnesium 1.4 mg/dl (1.7-2.4)
[2023-09-20] MEDS: GADOBUTROL 65ML VIAL IV ONE (00:13)
[2023-09-20] MEDS ORDERED: ACETAMINOPHEN 325 MG TAB PO PRN (00:50)
--- NOTE | 2023-09-20 01:24 | Magnetic Resonance Report ---
Exam(s): MRI L SPINE W/WO Contrast IV Amt: 12cc gadavist EXAM: MR Lumbar Spine Without and With Intravenous Contrast CLINICAL HISTORY: Reason for exam: low back pain, fractures, subjective fever. TECHNIQUE: Magnetic resonance images of the lumbar spine without and with intravenous contrast in multiple planes. CONTRAST: Patient received 12cc gadavist of IV contrast COMPARISON: CT Lumber spine 02-07-2022. FINDINGS: Vertebrae: There are 5 lumbar type vertebral bodies with a mild levoscoliosis and normal lumbar lordosis. There is an acute 2 column superior part fracture of the L1 vertebral body with extensive bone marrow edema and 34% loss of vertebral body height. There are acute or chronic 2 column fractures of the superior endplate of L2 and L3 moderate bone marrow edema and 63% loss of vertebral body height at L2 and 37% loss of vertebral body height L3. Spinal cord: The conus is normal size, shape and signal characteristics, terminating at L1-L2. No abnormal enhancement. Soft tissues: Extensive subcutaneous edema at T12-S3. IMPRESSION: There is an acute 2 column superior endplate fracture of the L1 vertebral body with 34% loss of vertebral body height. This fracture is amenable to vertebroplasty or kyphoplasty. Acute and chronic 2 column fractures on the superior endplates of L2 and L3 with 63% and 37% loss of vertebral body height respectively. These fractures are amenable to vertebroplasty or kyphoplasty. Electronically signed by: Ruth Ann Almeida MD 09/20/23 01:24 AM
[2023-09-20] MEDS: MoRPHine SULFATE 2 MG/ML CARP IV PRN (02:02)
[2023-09-20] MEDS: NSS + 20MEQ KCL 20 MEQ/1,000 ML BAG IV SCH (02:04)
[2023-09-20] MEDS: MAGNESIUM SULFATE / D5W 1 GM/100 ML BAG IV SCH (02:52)
[2023-09-20] MEDS: ONDANSETRON INJ 2 MG/ML 2 ML VIAL IV PRN (05:52)
[2023-09-20] MEDS: MoRPHine SULFATE 4 MG/ML 1 ML CARP\\VIAL IV PRN (05:52)
[2023-09-20 07:06] LABS: Basophils # (auto) 0.05 K/uL (0.00-0.20); Basophils % (auto) 0.7 %; Eosinophils # (auto) 0.67 K/uL (0.00-0.50); Eosinophils % (auto) 8.9 %; Hematocrit (blood only) 42.4 % (37.0-47.0); Immature Granulocytes # (auto) 0.02 K/uL (0.01-0.20); Immature Granulocytes % (auto) 0.3 %; Lymphocytes # (auto) 1.53 K/uL (1.20-3.40); Lymphocytes % (auto) 20.4 %; Mean Corpuscular Hemoglobin 30.1 pg (25.0-34.0); Mean Corpuscular Volume 91.2 fL (80.0-100.0); Mean Platelet Volume 14.7 fL (9.4-12.4); Monocytes # (auto) 0.37 K/uL (0.11-0.59); Monocytes % (auto) 4.9 %; Neutrophils # (auto) 4.85 K/uL (1.40-6.50); Neutrophils % (auto) 64.8 %; Platelet Count 52 K/uL (130-400); RDW Coefficient of Variation 12.7 % (11.5-14.5); RDW Standard Deviation 41.7 fL (36.4-46.3); Red Blood Count 4.65 M/uL (4.20-5.40); White Blood Count 7.49 K/ul (4.8-10.8)
[2023-09-20 08:25] LABS: Albumin Level 3.1 gm/dl (3.4-5.0); BUN Creatinine Ratio 11.7 (10-20); Calcium 8.3 mg/dl (8.6-10.3); Creatinine Clr Calc Pharmacy 91.9 ml/min; Est GFR (African American) 93.3 ml/min; Est GFR (Non-African American) 80.5 ml/min; Phosphorus 3.9 mg/dl (2.5-4.9); Potassium 3.1 mmol/L (3.5-5.1)
--- NOTE | 2023-09-20 09:10 | XRay Report ---
LUMBAR SPINE 5 VIEWS CLINICAL HISTORY: Low back pain. FINDINGS: 5 views of the lumbar spine are correlated with CT of the lumbar spine dated 02/07/[address] dated 09/17/2023. The skeletal structures are osteopenic. Again seen is a mild acute-to-carty bacute-appearing superior endplate compression fracture of L1 with mild loss of height. No retropulsi on of fragments is seen. Chronic superior endplate compression deformities of L2 and L3 are similar t o the 2021 CT scan. Vertebral body height is otherwise maintained throughout the lumbar spine. Alignm ent is preserved. Anterior and lateral marginal osteophytes are seen throughout. The transverse and s pinous processes appear intact. Facet arthropathy is noted in the [id number]-alkgd lumbar region. Mild-to -moderate multilevel disc space narrowing is seen at all lumbar levels. There is no radiographic evid ence of spondylolysis. Mild levocurvature is centered at L2. The visualized bony pelvis appears intac t. There is degenerative sclerosis of the sacroiliac joints. Surgical clips and suture material proje ct over the pelvis. No bowel obstruction is seen. There is atherosclerotic calcification of the abdom inal aorta. IMPRESSION: 1. Again seen is an [id number] appearing superior endplate compression fracture of L1. 2. Chronic compression deformities of L2 and L3 are similar to the 2021 CT scan. 3. Osteopenia and spondylotic change as above. Dictated: 09/20/2023 8:04 AM Transcribed: 09/20/2023 8:31 AM Tee [id number] [email or web address] Electronically signed by: Baldomero Reeder M.D. 09/20/2023 9:08 AM
--- OUTSIDE RECORDS SUMMARY | 2023-09-20 09:11 | External Medical Summary | Summary of Care ---
Author Name Unknown Organization [facility] Address [address] [place] [address] Phone [phone] Care Team Providers Care Strand Galvanizer Name Role Phone Jessie Mccauley MD Primary Care Provider [phone] Encounter Details Date Type Department Care Team (Late st Contact Info) Description 08/28/2023 Orders Only Outcomes Research Department [address] [place] [address] Nyasia Ricardo CHRA MyCPreciouStatus Research Other*[id number] Allergies Active Allergy Reactions Criticality Noted Date Comments Flurbiprofen 11/11/2015 Sumatriptan Base 12/19/2012 Chest tightness and heart pounds Ketorolac Tromethamine 12/19/2012 Local reaction on skin looks like a cigar burn on skin Nsaids Other (Please comment) High 11/06/2018 Pt reports onset of thrombocytopenia with previous use. documented as of this encounter (statuses as of 08/28/2023) Medications Medication Sig Dispensed Refills Start Date End Date Status XANAX 0.5 MG PO TABS up to 5 tabs daily as needed 0 Active Fenofibrate 145 MG Oral Tablet (Tricor)Indications:D iverticulitis of colon TAKE ONE TABLET BY MOUTH ONE TIME DAILY 90 Tab 0 10/26/2020 Active Omeprazole 20 MG Oral Capsule Delayed Release (PriLOSEC)Indications :Gastroesophageal reflux disease with esophagitis Take 1 Cap by mouth daily. 90 Cap 3 01/12/2021 Active Ondansetron 4 MG Oral Tablet Disintegrating (Zofran)Indications:N ausea Place on tongue 1 Tablet every 8 hours as needed for Nausea. dissolve on tongue. 30 Tablet 1 10/26/2021 Active Additional Information Patient not taking.Reported on 11/02/2021 Pro Comfort Tens Unit DeviceIndications:Lum bar degenerative disc disease Use as directed . 1 Each 0 01/13/2022 Active Baclofen 10 MG Oral Tablet (Lioresal) 0 01/10/2022 Active Meloxicam 15 MG Oral TabletIndications:Str ain of lumbar paraspinal muscle, sequela Take by mouth 1 Tablet in the morning. for pain.. 30 Tablet 5 01/19/2022 Active Cyclobenzaprine HCl 10 MG Oral Tablet (Flexeril)Indications :Strain of lumbar paraspinal muscle, sequela Take by mouth 1 Tablet 2 times a day as needed for Muscle spasms. 30 Tablet 1 01/19/2022 Active oxyCODONE HCl 10 MG Oral Tablet (Roxicodone) Take by mouth 10 mg every 4 hours as needed . 0 Active documented as of this encounter (statuses as of 08/28/2023) Active Problems Problem Noted Date Diagnosed Date Strain of lumbar paraspinal muscle, sequela 01/01 Body mass index (BMI) of 40.0 to 44.9 in adult 0 11/08/2021 Overview: Per Obesity protocol Prediabetes 11/08/2021 Overview: Per Prediabetes protocol ESVIN (generalized anxiety disorder) 11/05/2018 Moderate episode of recurrent major depressive d isorder 11/05/2018 Ventral hernia without obstruction or gangrene 0 11/05/2018 Gastroesophageal reflux disease with esophagitis 11/05/2018 Tobacco use disorder 11/05/2018 Mixed hyperlipidemia 11/05/2018 S/P hysterectomy 11/05/2018 Diverticulitis of colon 12/19/2012 documented as of this encounter (statuses as of 08/28/2023) Resolved Problems Problem Noted Date Diagnosed Date Resolved Date Morbid obesity with body mas s index of 45.0-49.9 in adult 07/05/2021 11/11/2021 Overview: Per Obesity protocol Body mass index (BMI) of 40. 0 to 44.9 in adult 12/10/2018 08/18/2021 Overview: Per Obesity protocol documented as of this encounter (statuses as of 08/28/2023) Immunizations Name Administration Dates Next Due Pneumococcal Polysaccharide PPV23 (Pneumovax) Seasonal Influenza, PF, 6 M & above, IM , (FluLaval or Fluzone) 04/03/2020 TDAP (age 10 and older)(Boostrix) 11/05/2018 documented as of this encounter Social History Tobacco Use Types Packs/Day Years Used Date Smoking Tobacco: Every Day Cigarettes 1.5 40 Smokeless Tobacco: Never Alcohol Use Standard Drinks/Week Comments Yes 0 (1 standard drink = 0.6 oz pur e alcohol) beer occasionally PHQ-2 Answer Date Recorded PHQ-2 Score 1 04/03/2020 Hunger Vital Sign Answer Date Recorded Worried About Running Out of Food in the Last Ye ar Never true 04/03/2020 Ran Out of Food in the Last Year Never true 04/03/2020 Sex and Gender Information Value Date Recorded Sex Assigned at Female 11/09/2021 6:18 AM EDT Gender Identity Female 11/09/2021 6:18 AM EDT Sexual Orientation Straight 11/09/2021 6: 18 AM EDT Job Start Date Occupation Industry Not on file Not on file Not on file documented as of this encounter Functional Status Functional Status Response Date of Assess ment Are you deaf or do you have serious difficulty h earing? No 11/06/2018 Are you blind or do you have serious difficulty seeing, even when wearing glasses? No 11/06/2018 Do you have serious difficul ty walking or climbing stairs? (5 years old or older) No 11/06/2018 Do you have difficulty dress ing or bathing? (5 years old or older) No 11/06/2018 Because of a physical, menta l, or emotional condition, do you have difficulty doing errands alone such as visiting a doctor s office or shopping? (15 years old or older) No 11/07/19 19 Cognitive Status Response Date of Assessm ent Because of a physical, menta l, or emotional condition, do you have serious difficulty concentrating, remembering, or making decisions? (5 years old or older) No 11/06/2018 documented as of this encounter Plan of Treatment Scheduled Orders Name Type Priority Associated Diagnoses Orde r Schedule MYCODE INITIAL ADULT Lab Routine MyCode Research Other*[id number] Expected: 08/28/2023 (Approximate), Expires: 09/16/2024 Health Maintenance Due Date Last Done Comments Hepatitis C Screening 1975 Mammogram 1997 Cologuard 2002 Colonoscopy 2002 Colorectal Cancer Screening 2002 Fecal Occult Blood Test 2002 Sigmoidoscopy 2002 LUNG CANCER SCREENING - USE SMARTSET 52604 2007 Zoster Vaccines (1 of 2) 2007 Depression Screening 04/03/2021 04/03/2020 HbA1c 10/26/2022 10/26/2021 COVID-19 Vaccine (1 - 2022-2 4 season) 2023 Influenza Vaccine (FLU shot) (#1) 2023 04/03/2020 Lipid Panel 10/26/2026 10/26/2021 DTaP,Tdap,and Td Vaccines (2 - Td or Tdap) 11/05/2028 11/05/2018 DXA Scan 03/02/2029 03/02/2022 Pneumococcal Vaccine: 65+ Years Completed 01/02/2023, 04/03/2020 GARDASIL-HPV IMMUNIZATION SERIES Aged Out No longer eligible b ased on patient's age to complete this topic Hepatitis B Aged Out No longer eligi ble based on patient's age to complete this topic MENINGOCOCCAL (MENACTRA/MENVEO) Aged Out No longer eligible b ased on patient's age to complete this topic documented as of this encounter Medical Devices Not on filedocumented as of this encounter Visit Diagnoses Diagnosis MyCode Research Other*[id number] documented in this encounter Advance Directives Latest Code Status on File Code Status Date Activated Date Inactivated Comments Full Code 11/06/2018 1:59 PM 11/07/2018 3:18 PM This or karine reflects the patients wishes and were consensually agreed upon. Question Answer Comments Discussion of Advance Directives occurred with: Not Discussed Does the patient have a Living Will? No Does the patient have Health Care Power of Pest Management Supervisor? No Care Teams Strand Galvanizer Relationship Specialty Start Date End Date Jessie Mccauley MD PCP - General Internal Medicine 02/16/22 documented as of this encounter
[2023-09-20] MEDS: FENOFIBRATE NANOCRYSTALLIZED 145 MG TABLET PO SCH (10:24)
[2023-09-20] MEDS: ESCITALOPRAM OXALATE 20 MG TAB PO SCH (10:24)
[2023-09-20] MEDS: PANTOprazole 40 MG TAB PO SCH (10:24)
[2023-09-20] MEDS: ENOXAPARIN INJ 40 MG/0.4 ML SYR SQ SCH (10:25)
[2023-09-20] MEDS: LORazepam 0.5 MG TAB PO PRN (10:31)
[2023-09-20] MEDS: CEFEPIME 2,000 MG in SYRINGE 0 ML IV SCH (10:31)
[2023-09-20] MEDS: INFLUENZA VACCINE HIGH-DOSE (HD-IIV4) PF 65+ 0.7mL SYR IM ONE (10:31)
[2023-09-20] MEDS ORDERED: PANTOprazole 40 MG in SYRINGE 0 ML IV SCH (11:00)
[2023-09-20] MEDS: POTASSIUM CHLORIDE CRTAB 20 MEQ TABCR PO SCH (13:30)
--- NOTE | 2023-09-20 14:54 | Hospitalist Progress Note ---
Date of Service September 20, 2023 Assessment & Plan (1) Closed compression fracture of L1 vertebra: Plan: L1 and L2. Pain control measures. Await orthopedic spine surgery consultation. (2) Intractable low back pain: Plan: Pain control measures. Await orthopedic spine surgery consultation (3) Hypokalemia: Plan: Continue replacement. Serial labs (4) Hypomagnesemia: Plan: Corrected to 2.0. (5) UTI (urinary tract infection): Plan: Currently on cefepime, day 2. Await urine culture results (6) Diverticulitis: Plan: Low probability. She is now on a full liquid diet. Continue cefepime for now (7) GERD (gastroesophageal reflux disease): Plan: PPI for Plan It appears she will need rehab or SNF placement at the time of discharge. Await orthopedic spine surgery consultation and recommendations Admission and Anticipated Discharge Date Admission Date: September 19, 2023 Subjective Alert and oriented. Continued low back pain with movement. Awaiting orthopedic spine consultation. Potassium replacement continues. Magnesium corrected to 2.0. Urine culture is pending. I doubt if she has acute diverticulitis. She is now on a full liquid diet. OT and PT assessments requested. She probably will need placement. Urine culture results pending. Continue cefepime for now Review of Systems 2 Review of Systems: Constitutional-no fever or chills. ENT-no blurred vision, no double vision, no epistaxis, no sore throat Respiratory-no cough, no wheezing, no shortness of breath Cardiac-no palpitations, no chest pain, no syncope GI-no nausea, vomiting, diarrhea, melena, hematochezia -no urinary retention, no urinary incontinence, no dysuria, no hematuria Musculoskeletal-lumbar pain Skin-no bruising, no rashes, no pruritus Neuro-no isolated weakness, no paresthesia, no weakness Psych-no depression, no anxiety Physical Exam 2 Physical Exam: General-alert and oriented x3, no fever, no chills. Morbidly obese HEENT-head atraumatic and normocephalic, pupils equal and reactive to light, extraocular muscles intact Neck-no lymphadenopathy or thyromegaly, trachea midline Chest-clear to auscultation. No rales, wheezing or rhonchi Cardiac-regular rate and rhythm, normal S1 and S2 Abdomen-normal bowel sounds, nontender, no hepatosplenomegaly Extremities-no cyanosis, clubbing. Chronic nonpitting edema bilateral lower extremities below the knees Neuro-cranial nerves II through XII intact, motor and sensory function within normal limits, strength symmetrical with generalized weakness, no focal deficits Psych-normal affect, normal mood Results & Data Results & Data Vital Signs (Past 12 Hours) Vital Signs Temp Pulse Resp BP Pulse Ox O2 Del Method 09/20/23 09:00 Room Air 09/20/23 07:42 36.5 C 66 24 133/66 93 Room Air Laboratory Results 09/20/23 06:25 09/20/23 06:25 PG Care Time/CCT Total # of Minutes Spent Total Time Spent with Patient: Total time spent is greater than 50% in coordination of care (as documented) at patient's floor/unit and/or counseling patient: Coding Level of Care Code 36841 SUB INP/OBS CARE 3/50MIN Diagnoses Closed compression fracture of L1 vertebra S32.010A Intractable low back pain M54.59 Hypokalemia E87.6 Hypomagnesemia E83.42 UTI (urinary tract infection) N39.0 Diverticulitis K57.92 GERD (gastroesophageal reflux disease) K21.9
[2023-09-21 06:33] LABS: BUN Creatinine Ratio 13.2 (10-20); Calcium 8.6 mg/dl (8.6-10.3); Creatinine Clr Calc Pharmacy 104.1 ml/min; Est GFR (African American) 105.6 ml/min; Est GFR (Non-African American) 91.2 ml/min; Potassium 3.7 mmol/L (3.5-5.1)
[2023-09-21 07:32] LABS: Hemoglobin 13.8 g/dl (12.0-16.0); Mean Corpuscular Hemoglobin 30.7 pg (25.0-34.0); Mean Corpuscular Hgb Conc 33.7 g/dL (32.0-36.0); Mean Corpuscular Volume 91.3 fL (80.0-100.0); Platelet Count 42 K/uL (130-400); RDW Coefficient of Variation 12.8 % (11.5-14.5); Red Blood Count 4.49 M/uL (4.20-5.40); White Blood Count 6.34 K/ul (4.8-10.8)
[2023-09-21 07:33] LABS: Basophils # (auto) 0.04 K/uL (0.00-0.20); Basophils % (auto) 0.6 %; Eosinophils # (auto) 0.59 K/uL (0.00-0.50); Eosinophils % (auto) 9.3 %; Immature Granulocytes # (auto) 0.02 K/uL (0.01-0.20); Immature Granulocytes % (auto) 0.3 %; Lymphocytes # (auto) 1.26 K/uL (1.20-3.40); Lymphocytes % (auto) 19.9 %; Monocytes # (auto) 0.34 K/uL (0.11-0.59); Monocytes % (auto) 5.4 %; Neutrophils # (auto) 4.09 K/uL (1.40-6.50); Neutrophils % (auto) 64.5 %; Toxic Vacuolation 1+
--- NOTE | 2023-09-21 08:37 | Orthopedic Consultation ---
Date of Consultation September 21, 2023 Assessment & Plan (1) Closed compression fracture of L1 vertebra: Assessment compression fracture lumbar spine. Plan at this time fracture symptoms could be related to the acute and chronic compression fracture throughout the lumbar spine. L1 appears to be most significant on imaging. There is some underlying stenosis as well. She states she has a brace at home. Concerned her body habitus would limit the overall effectiveness of bracing. We will attempt some modest physical therapy transfers to the chair and ambulation. Pending her tolerance we may need to consider surgical invention. At minimum would require a kyphoplasty of L1 possibly L2 and L3. History of Present Illness Reason for Consultation: Back pain Attending Physician: Uri Brothers MD History of Present Illness This is a 67-year-old female presents with significant worsening back pain over the past 2 weeks. She denies any significant trauma fall or event. She states prior to this time she was ambulating without a walker and was able to stand for several minutes at a time. This morning she denies any radicular complaints or numbness or tingling in the legs. She has axial back symptoms with activity. She can find a comfortable position at rest. Allergies Allergy/AdvReac Type Severity Reaction Status Date / Time NSAIDS (Non-Steroidal Allergy Unknown THROMBOCYTO Verified 03/21/23 10:10 Anti-Inflamma PENIA sumatriptan AdvReac Intermediate PANIC Verified 03/21/23 10:10 ATTACKS ketorolac AdvReac Mild SKIN Verified 03/21/23 10:10 IRRITATION Home Medications Medication Instructions Recorded Confirmed Type alprazolam 0.5 mg tablet 0.5 mg PO QID PRN Anxiety 01/23/22 03/21/23 History escitalopram oxalate 10 mg tablet 10 mg PO QAM 01/23/22 03/21/23 History escitalopram oxalate 20 mg tablet 20 mg PO QAM 01/23/22 03/21/23 History omeprazole 20 mg capsule,delayed 20 mg PO QAM #90 caps 01/24/23 03/21/23 Rx release ipratropium bromide 21 mcg (0.03 2 spray intranasal TID #30 mL 02/23/23 03/21/23 Rx %) nasal spray peg 3350-sod sulf,[id number] See Rx Instructions PO .COMPLEX #2 03/14/23 Rx 178.7-7.3-0.5-1.12-0.9 gram oral mL soln (Suflave) ondansetron 4 mg disintegrating 4 mg PO Q8H PRN nausea and 03/20/23 03/21/23 Rx tablet vomiting #7 tabs fenofibrate nanocrystallized 145 145 mg PO QAM 03/21/23 03/21/23 History mg tablet Patient History Medical History (Updated 09/20/23 @ 05:11 by Dusty Downs MD) Diverticulitis Chronic pain History of anesthesia reaction decreased SPo2 during the ventral hernia surgery. patient had to stay overnight post op Vocal cord polyp monitoring - scheduled in October 2023 with ENT Osteoporotic compression fracture of spine (01/23/22) Anxiety GERD (gastroesophageal reflux disease) Thrombocytopenia chronic Compression fracture hx - chronic pain Post traumatic stress disorder (PTSD) Depression Surgical History H/O ventral hernia repair H/O bilateral breast reduction surgery History of esophagogastroduodenoscopy (EGD) History of colonoscopy History of back surgery lumbar surgery (in office at time of injury) History of appendectomy History of cholecystectomy H/O: hysterectomy ZARINA with BSo H/O tooth extraction History of bowel resection (~2014) r/t perforatedf diverticulitis Family History Father Colorectal cancer Brother Colorectal cancer Denies family history of Ovarian cancer Prostate cancer Myocardial infarction Breast cancer Social History Smoking Status: Current every day smoker Tobacco Type: Cigarettes Age Started Using Tobacco: 22; Cigarettes Per Day: 2 a day; Second Hand Exposure: Yes; Do You Dip or Chew Tobacco: No; Hx Alcohol Use: No Hx Substance Use: No Preferred Language: Norwegian Communication Ability: Effective Visual Impairment: No Limitations Hearing Ability: Normal Cubing Machine Tender Required: No Beliefs That Will Affect Care: None marital status: Current Living Situation: Spouse current occupational status: retired How many Children do You have: 4 Feels Safe at Home: Yes Safety Concerns: Feels Safe At This Time Childhood Exposure to Second-Hand Smoke: Yes Diet Comment: NO RED MEAT Dental Care, Regularly: No Physical Activity Frequency: Does not Exercise Seatbelt Use: always Sunscreen Use: No Assistive Devices: Walker, Wheelchair and Other Physical Exam Physical Exam: Patient has good strength testing lower extremities. Sensory is intact. She is uncomfortable with motion in the bed. Results & Data Vital Signs (Past 12 Hours) Vital Signs Temp Pulse Resp BP Pulse Ox O2 Del Method 09/21/23 07:33 36.9 C 65 18 125/75 92 Room Air 09/20/23 21:14 Room Air
[2023-09-21] MEDS ORDERED: cefTRIAXone SODIUM 1,000 MG in DEXTROSE 5 % MINI-B 50 ML IV SCH (09:45)
[2023-09-21] MEDS: HYDROmorphone INJ 2 MG/ML SYR/VIAL IV PRN (10:53)
[2023-09-21] MEDS: cefTRIAXone SODIUM 2,000 MG in DEXTROSE 5 % MINI-B 50 ML IV SCH (11:01)
--- NOTE | 2023-09-21 14:38 | Hospitalist Progress Note ---
Date of Service September 21, 2023 Assessment & Plan (1) Closed compression fracture of L1 vertebra: Plan: L1 and L2. Appreciate orthopedic spine consultation and recommendations. She may yet require kyphoplasty. Morphine switched to Dilaudid for better pain control. (2) Intractable low back pain: Plan: Pain control measures. Morphine switched to Dilaudid. She may require kyphoplasty (3) Hypokalemia: Plan: Corrected. Serial labs (4) Hypomagnesemia: Plan: Corrected to 2.0. (5) UTI (urinary tract infection): Plan: Klebsiella isolated. Pansensitive. Cefepime switched to Rocephin. Day 3 of antibiotic coverage. (6) Diverticulitis: Plan: Low probability. Diet has been advanced and so far well-tolerated. She remains on parenteral antibiotic therapy for the UTI which will provide coverage if she does have any diverticulitis. (7) GERD (gastroesophageal reflux disease): Plan: Stable. Continue PPI therapy Plan To be determined. She may need kyphoplasty. She probably will need SNF placement at the time of discharge. Admission and Anticipated Discharge Date Admission Date: September 19, 2023 Subjective Alert and oriented. Morphine is not controlling her pain. She has been switched to Dilaudid parenterally. Orthopedic spine consultation noted. Kyphoplasty remains an option. Participation with physical therapy has been limited due to her pain. Hypokalemia and hypomagnesemia have been corrected. Klebsiella isolated in the urine, sensitive to Rocephin. Cefepime has been switched to Rocephin therapy. She is on day 3 of antibiotic coverage Review of Systems 2 Review of Systems: Constitutional-no fever or chills. ENT-no blurred vision, no double vision, no epistaxis, no sore throat Respiratory-no cough, no wheezing, no shortness of breath Cardiac-no palpitations, no chest pain, no syncope GI-no nausea, vomiting, diarrhea, melena, hematochezia -no urinary retention, no urinary incontinence, no dysuria, no hematuria Musculoskeletal-lumbar pain Skin-no bruising, no rashes, no pruritus Neuro-no isolated weakness, no paresthesia, no weakness Psych-no depression, no anxiety Physical Exam 2 Physical Exam: General-alert and oriented x3, no fever, no chills. Morbidly obese HEENT-head atraumatic and normocephalic, pupils equal and reactive to light, extraocular muscles intact Neck-no lymphadenopathy or thyromegaly, trachea midline Chest-clear to auscultation. No rales, wheezing or rhonchi Cardiac-regular rate and rhythm, normal S1 and S2 Abdomen-normal bowel sounds, nontender, no hepatosplenomegaly Extremities-no cyanosis, clubbing. Chronic nonpitting edema bilateral lower extremities below the knees Neuro-cranial nerves II through XII intact, motor and sensory function within normal limits, strength symmetrical with generalized weakness, no focal deficits Psych-normal affect, normal mood Results & Data Results & Data Vital Signs (Past 12 Hours) Vital Signs Temp Pulse Resp BP Pulse Ox O2 Del Method 09/21/23 11:13 65 18 156/85 H 94 Room Air 09/21/23 07:45 Room Air 09/21/23 07:33 36.9 C 65 18 125/75 92 Room Air Laboratory Results 09/21/23 05:28 09/21/23 05:28 PG Care Time/CCT Total # of Minutes Spent Total Time Spent with Patient: Total time spent is greater than 50% in coordination of care (as documented) at patient's floor/unit and/or counseling patient: Coding Level of Care Code 85023 SUB INP/OBS CARE 3/50MIN Diagnoses Closed compression fracture of L1 vertebra S32.010A Intractable low back pain M54.59 Hypokalemia E87.6 Hypomagnesemia E83.42 UTI (urinary tract infection) N39.0 Diverticulitis K57.92 GERD (gastroesophageal reflux disease) K21.9
[2023-09-22 07:41] LABS: Basophils # (auto) 0.05 K/uL (0.00-0.20); Basophils % (auto) 0.6 %; Eosinophils # (auto) 0.63 K/uL (0.00-0.50); Eosinophils % (auto) 7.9 %; Hematocrit (blood only) 45.3 % (37.0-47.0); Hemoglobin 14.8 g/dl (12.0-16.0); Immature Granulocytes # (auto) 0.03 K/uL (0.01-0.20); Immature Granulocytes % (auto) 0.4 %; Lymphocytes % (auto) 18.8 %; Mean Corpuscular Hemoglobin 30.6 pg (25.0-34.0); Mean Corpuscular Hgb Conc 32.7 g/dL (32.0-36.0); Mean Corpuscular Volume 93.8 fL (80.0-100.0); Monocytes # (auto) 0.47 K/uL (0.11-0.59); Monocytes % (auto) 5.9 %; Neutrophils # (auto) 5.32 K/uL (1.40-6.50); Neutrophils % (auto) 66.4 %; Platelet Count 39 K/uL (130-400); RDW Coefficient of Variation 13.1 % (11.5-14.5); RDW Standard Deviation 44.8 fL (36.4-46.3); Red Blood Count 4.83 M/uL (4.20-5.40)
[2023-09-22 08:04] LABS: Calcium 9.4 mg/dl (8.6-10.3); Creatinine Clr Calc Pharmacy 88.5 ml/min; Est GFR (Non-African American) 76.8 ml/min; Potassium 4.1 mmol/L (3.5-5.1)
--- NOTE | 2023-09-22 10:07 | Orthopedic Progress Note ---
Date of Service September 22, 2023 Assessment & Plan (1) Closed compression fracture of L1 vertebra: Plan: Plan at this time she has failed to progress with physical therapy and medications. Subsequently she would like to consider kyphoplasty. At this time I would focus on L1 as this is the acute fracture. Benefits pros cons alternatives in detail. This point we will plan for surgery Monday if medically cleared. Admission and Anticipated Discharge Date Admission Date: September 19, 2023 Subjective Patient continues to struggle significant back pain with ambulation. She is not progressed despite therapy. We had a discussion today regarding kyphoplasty. Physical Exam Physical Exam: Patient is able to stand and ambulate. She is in obvious distress. She is neurologically intact. Results & Data Vital Signs (Past 12 Hours) Vital Signs Temp Pulse Resp BP Pulse Ox O2 Del Method 09/22/23 08:15 36.7 C 76 16 140/70 93 Room Air 09/22/23 07:20 Room Air Queries Orthopedic Spine Obesity: Yes
--- NOTE | 2023-09-22 14:03 | Hospitalist Progress Note ---
Date of Service September 22, 2023 Assessment & Plan (1) Closed compression fracture of L1 vertebra: Plan: L1 and L2. Appreciate orthopedic spine consultation and recommendations. She will undergo L1 kyphoplasty on September 24. Dilaudid is helping much better than morphine for her back pain. (2) Intractable low back pain: Plan: Pain control measures. Morphine has been switched to Dilaudid. L1 kyphoplasty will be completed on September 24 (3) Hypokalemia: Plan: Corrected. Serial labs (4) Hypomagnesemia: Plan: Corrected (5) UTI (urinary tract infection): Plan: Klebsiella isolated. Pansensitive. Cefepime switched to Rocephin. Day 4 of antibiotic coverage. (6) Diverticulitis: Plan: Low probability. Diet has been advanced and so far well-tolerated. She remains on parenteral antibiotic therapy for the UTI which will provide coverage if she does have any diverticulitis. (7) GERD (gastroesophageal reflux disease): Plan: Stable. Continue PPI therapy Plan L1 kyphoplasty will be done on September 24. Continue OT and PT. It still needs to be determined if she is going to need rehab or if she can go home. Admission and Anticipated Discharge Date Admission Date: September 19, 2023 Subjective Dilaudid is helping much better than morphine for her back pain. She is ambulating very slowly with a walker. Orthopedic spine surgery entry noted. She will undergo L1 kyphoplasty on September 24. She is medically cleared for surgery. Review of Systems 2 Review of Systems: Constitutional-no fever or chills. ENT-no blurred vision, no double vision, no epistaxis, no sore throat Respiratory-no cough, no wheezing, no shortness of breath Cardiac-no palpitations, no chest pain, no syncope GI-no nausea, vomiting, diarrhea, melena, hematochezia -no urinary retention, no urinary incontinence, no dysuria, no hematuria Musculoskeletal-lumbar pain Skin-no bruising, no rashes, no pruritus Neuro-no isolated weakness, no paresthesia, no weakness Psych-no depression, no anxiety Physical Exam 2 Physical Exam: General-alert and oriented x3, no fever, no chills. Morbidly obese HEENT-head atraumatic and normocephalic, pupils equal and reactive to light, extraocular muscles intact Neck-no lymphadenopathy or thyromegaly, trachea midline Chest-clear to auscultation. No rales, wheezing or rhonchi Cardiac-regular rate and rhythm, normal S1 and S2 Abdomen-normal bowel sounds, nontender, no hepatosplenomegaly Extremities-no cyanosis, clubbing. Chronic nonpitting edema bilateral lower extremities below the knees Neuro-cranial nerves II through XII intact, motor and sensory function within normal limits, strength symmetrical with generalized weakness, no focal deficits Psych-normal affect, normal mood Results & Data Results & Data Vital Signs (Past 12 Hours) Vital Signs Temp Pulse Resp BP Pulse Ox O2 Del Method 09/22/23 12:00 36.9 C 76 14 138/70 90 Room Air 09/22/23 08:15 36.7 C 76 16 140/70 93 Room Air 09/22/23 07:20 Room Air Laboratory Results 09/22/23 07:00 09/22/23 07:00 PG Care Time/CCT Total # of Minutes Spent Total Time Spent with Patient: Total time spent is greater than 50% in coordination of care (as documented) at patient's floor/unit and/or counseling patient: Coding Level of Care Code 97585 SUB INP/OBS CARE 235MIN Diagnoses Closed compression fracture of L1 vertebra S32.010A Intractable low back pain M54.59 Hypokalemia E87.6 Hypomagnesemia E83.42 UTI (urinary tract infection) N39.0 Diverticulitis K57.92 GERD (gastroesophageal reflux disease) K21.9
[2023-09-23 06:30] LABS: BUN Creatinine Ratio 9.2 (10-20); Calcium 9.1 mg/dl (8.6-10.3); Creatinine Clr Calc Pharmacy 93.1 ml/min; Est GFR (African American) 94.7 ml/min; Est GFR (Non-African American) 81.7 ml/min; Potassium 4.4 mmol/L (3.5-5.1)
[2023-09-23] MEDS: HYDROmorphone INJ 2 MG/ML SYR/VIAL IV PRN (11:26)
--- NOTE | 2023-09-23 11:28 | Hospitalist Progress Note ---
Date of Service September 23, 2023 Assessment & Plan (1) Closed compression fracture of L1 vertebra: Plan: L1 and L2. Appreciate orthopedic spine consultation and recommendations. She will undergo L1 kyphoplasty on September 24. Dilaudid is helping much better than morphine for her back pain. (2) Intractable low back pain: Plan: Pain control measures. Morphine has been switched to Dilaudid. L1 kyphoplasty will be completed on September 24 (3) Hypokalemia: Plan: Corrected. Serial labs (4) Hypomagnesemia: Plan: Corrected (5) UTI (urinary tract infection): Plan: Klebsiella isolated. Pansensitive. Cefepime switched to Rocephin. Day 5 of antibiotic coverage. Rocephin will be discontinued tomorrowSeptember 23 (6) Diverticulitis: Plan: Low probability. Diet has been advanced and so far well-tolerated. She remains on parenteral antibiotic therapy for the UTI which will provide coverage if she does have any diverticulitis. (7) GERD (gastroesophageal reflux disease): Plan: Stable. Continue PPI therapy Plan L1 kyphoplasty will be done on September 24. Continue OT and PT. It still needs to be determined if she is going to need rehab or if she can go home. Admission and Anticipated Discharge Date Admission Date: September 19, 2023 Subjective Alert and oriented. Stable overall. She has been medically cleared for kyphoplasty operative intervention on the L1 and L2 compression fractures on September 24. Rocephin will be discontinued tomorrowSeptember 23 Review of Systems 2 Review of Systems: Constitutional-no fever or chills. ENT-no blurred vision, no double vision, no epistaxis, no sore throat Respiratory-no cough, no wheezing, no shortness of breath Cardiac-no palpitations, no chest pain, no syncope GI-no nausea, vomiting, diarrhea, melena, hematochezia -no urinary retention, no urinary incontinence, no dysuria, no hematuria Musculoskeletal-lumbar pain Skin-no bruising, no rashes, no pruritus Neuro-no isolated weakness, no paresthesia, no weakness Psych-no depression, no anxiety Physical Exam 2 Physical Exam: General-alert and oriented x3, no fever, no chills. Morbidly obese HEENT-head atraumatic and normocephalic, pupils equal and reactive to light, extraocular muscles intact Neck-no lymphadenopathy or thyromegaly, trachea midline Chest-clear to auscultation. No rales, wheezing or rhonchi Cardiac-regular rate and rhythm, normal S1 and S2 Abdomen-normal bowel sounds, nontender, no hepatosplenomegaly Extremities-no cyanosis, clubbing. Chronic nonpitting edema bilateral lower extremities below the knees Neuro-cranial nerves II through XII intact, motor and sensory function within normal limits, strength symmetrical with generalized weakness, no focal deficits Psych-normal affect, normal mood Results & Data Results & Data Vital Signs (Past 12 Hours) Vital Signs Temp Pulse Resp BP Pulse Ox O2 Del Method 09/23/23 07:57 Room Air 09/23/23 07:18 37.0 C 74 16 149/89 H 91 Room Air Laboratory Results 09/22/23 07:00 09/23/23 05:56 PG Care Time/CCT Total # of Minutes Spent Total Time Spent with Patient: Total time spent is greater than 50% in coordination of care (as documented) at patient's floor/unit and/or counseling patient: Coding Level of Care Code 17364 SUB INP/OBS CARE 2/35MIN Diagnoses Closed compression fracture of L1 vertebra S32.010A Intractable low back pain M54.59 Hypokalemia E87.6 Hypomagnesemia E83.42 UTI (urinary tract infection) N39.0 Diverticulitis K57.92 GERD (gastroesophageal reflux disease) K21.9
[2023-09-23] MEDS: CYCLOBENZAPRINE HCL 5 MG TAB PO ONE (23:16)
--- NOTE | 2023-09-24 07:43 | Orthopedic Progress Note ---
Date of Service September 24, 2023 Assessment & Plan (1) Closed compression fracture of L1 vertebra: Plan: Patient is set to have an L1 kyphoplasty performed tomorrow. She is to be n.p.o. after midnight and are going to hold her Lovenox today and tomorrow. I have answered all her questions her satisfaction. She understands the risks versus benefits of the procedure and we will proceed with the L1 kyphoplasty tomorrow. Admission and Anticipated Discharge Date Admission Date: September 19, 2023 Subjective Patient was seen bedside in room 384. She still is having a scant amount of lower back pain. It is more painful when she stands and moves or tries to roll over in bed. She is not having any mike radicular complaints at this point. She is scheduled to have an L1 kyphoplasty tomorrow. She denies any other numbness, tingling, or paresthesias Physical Exam Physical Exam: On exam she is alert and oriented. She answers questions appropriately. Her strength and sensation are both intact. Cardiovascular exam reveals no gross ab normalities. Results & Data Vital Signs (Past 12 Hours) Vital Signs O2 Del Method 09/24/23 07:33 Room Air 09/23/23 19:45 Room Air
[2023-09-24] MEDS ORDERED: DC ALL ANTICOAGULANTS ONE (07:46)
--- NOTE | 2023-09-24 11:15 | Hospitalist Progress Note ---
Date of Service September 24, 2023 Assessment & Plan (1) Closed compression fracture of L1 vertebra: Plan: L1 and L2. Appreciate orthopedic spine consultation and recommendations. She will undergo L1 kyphoplasty on September 24. Dilaudid is helping much better than morphine for her back pain. (2) Intractable low back pain: Plan: Pain control measures. Morphine has been switched to Dilaudid. L1 kyphoplasty will be completed on September 24 (3) Hypokalemia: Plan: Corrected. Serial labs (4) Hypomagnesemia: Plan: Corrected (5) UTI (urinary tract infection): Plan: Klebsiella isolated. Pansensitive. Cefepime switched to Rocephin. She has completed her course of antibiotic. Rocephin discontinued today, September 23 (6) Diverticulitis: Plan: Low probability. Diet has been advanced and so far well-tolerated. She remains on parenteral antibiotic therapy for the UTI which will provide coverage if she does have any diverticulitis. (7) GERD (gastroesophageal reflux disease): Plan: Stable. Continue PPI therapy Plan L1 kyphoplasty will be done on September 24. Continue OT and PT. It still needs to be determined if she is going to need rehab or if she can go home. Admission and Anticipated Discharge Date Admission Date: September 19, 2023 Subjective Alert and oriented. No new problems. She has completed her course of antibiotics for the UTI. Rocephin has been discontinued. Lovenox has been placed on hold for upcoming kyphoplasty procedure tomorrow, September 24. Review of Systems 2 Review of Systems: Constitutional-no fever or chills. ENT-no blurred vision, no double vision, no epistaxis, no sore throat Respiratory-no cough, no wheezing, no shortness of breath Cardiac-no palpitations, no chest pain, no syncope GI-no nausea, vomiting, diarrhea, melena, hematochezia -no urinary retention, no urinary incontinence, no dysuria, no hematuria Musculoskeletal-lumbar pain Skin-no bruising, no rashes, no pruritus Neuro-no isolated weakness, no paresthesia, no weakness Psych-no depression, no anxiety Physical Exam 2 Physical Exam: General-alert and oriented x3, no fever, no chills. Morbidly obese HEENT-head atraumatic and normocephalic, pupils equal and reactive to light, extraocular muscles intact Neck-no lymphadenopathy or thyromegaly, trachea midline Chest-clear to auscultation. No rales, wheezing or rhonchi Cardiac-regular rate and rhythm, normal S1 and S2 Abdomen-normal bowel sounds, nontender, no hepatosplenomegaly Extremities-no cyanosis, clubbing. Chronic nonpitting edema bilateral lower extremities below the knees Neuro-cranial nerves II through XII intact, motor and sensory function within normal limits, strength symmetrical with generalized weakness, no focal deficits Psych-normal affect, normal mood Results & Data Results & Data Vital Signs (Past 12 Hours) Vital Signs Temp Pulse Resp BP BP Pulse Ox O2 Del Method 09/24/23 07:42 36.7 C 73 16 161/98 H 156/69 H 91 Room Air 09/24/23 07:33 Room Air Laboratory Results 09/22/23 07:00 09/23/23 05:56 PG Care Time/CCT Total # of Minutes Spent Total Time Spent with Patient: Total time spent is greater than 50% in coordination of care (as documented) at patient's floor/unit and/or counseling patient: Coding Level of Care Code 61852 SUB INP/OBS CARE 2/35MIN Diagnoses Closed compression fracture of L1 vertebra S32.010A Intractable low back pain M54.59 Hypokalemia E87.6 Hypomagnesemia E83.42 UTI (urinary tract infection) N39.0 Diverticulitis K57.92 GERD (gastroesophageal reflux disease) K21.9
[2023-09-25 10:19] LABS: Basophils # (auto) 0.04 K/uL (0.00-0.20); Basophils % (auto) 0.6 %; Eosinophils # (auto) 0.37 K/uL (0.00-0.50); Eosinophils % (auto) 5.8 %; Immature Granulocytes # (auto) 0.03 K/uL (0.01-0.20); Immature Granulocytes % (auto) 0.5 %; Lymphocytes # (auto) 1.24 K/uL (1.20-3.40); Lymphocytes % (auto) 19.3 %; Mean Corpuscular Hemoglobin 30.5 pg (25.0-34.0); Mean Corpuscular Hgb Conc 32.6 g/dL (32.0-36.0); Mean Corpuscular Volume 93.7 fL (80.0-100.0); Mean Platelet Volume 15.4 fL (9.4-12.4); Monocytes % (auto) 7.8 %; Neutrophils # (auto) 4.24 K/uL (1.40-6.50); Platelet Count 41 K/uL (130-400); RDW Coefficient of Variation 13.2 % (11.5-14.5); Red Blood Count 4.59 M/uL (4.20-5.40); White Blood Count 6.42 K/ul (4.8-10.8)
[2023-09-25 10:33] LABS: Calcium 9.7 mg/dl (8.6-10.3); Creatinine Clr Calc Pharmacy 82.3 ml/min; Est GFR (African American) 81.6 ml/min; Est GFR (Non-African American) 70.4 ml/min; Magnesium 1.7 mg/dl (1.7-2.4); Potassium 4.4 mmol/L (3.5-5.1)
--- NOTE | 2023-09-25 13:17 | Hospitalist Progress Note ---
Date of Service September 25, 2023 Assessment & Plan (1) Closed compression fracture of L1 vertebra: Plan: L1 and L2. With osteoporosis Appreciate orthopedic spine consultation and recommendations. She will undergo L1 kyphoplasty on September 24. Continue Dilaudid which is helping much better than morphine for her back pain, transition to po pain meds prior to discharge, avoid NSAIDs due to thrombocytopenia continue f/u with PCP for tx of osteoporosis-she has tried various medications in the past but cannot recall the names-consider Endo or Rheum referral (2) Hypokalemia: Plan: Corrected. Dc scheduled KCL (3) Hypomagnesemia: Plan: checked magnesium level today-Corrected (4) UTI (urinary tract infection): Plan: Klebsiella isolated. Pansensitive. Cefepime switched to Rocephin. She has completed her course of antibiotic (5) Diverticulitis: Plan: Low probability. Diet has been advanced and so far well-tolerated. She received parenteral antibiotic therapy for the UTI which will provide coverage if she does have any diverticulitis. Will obtain CT scan records from [facility] (6) GERD (gastroesophageal reflux disease): Plan: Stable. Continue PPI therapy (7) Thrombocytopenia: Plan: platelets low since 2012, does not follow with Heme platelets 41k today, stable from previous, no bleeding from anywhere will d/w Ortho Spine to see if needs preop platelets follow CBC f/u with Heme as outpt avoid ASA, NSAIDs, and anticoagulation if < 50k Plan DVT proph-Lovenox stopped for procedure and would not resume given low platelets. SCDs only Dispo-continued stay, dc in 1-2 days after procedure if pain controlled. Pt feels she will be able to return to home Admission and Anticipated Discharge Date Admission Date: September 19, 2023 Subjective Frustrated with her pain, still severe in lower back,radiating around hips. has chronic abd pain off and on from her "hernia." Moving bowels, no blood in stool Physical Exam Constitutional: WD/WN, vitals as above Neck: trachea midline, no thyromegaly Respiratory: normal respiratory effort, lungs clear to auscultation Cardiovascular: RRR, no murmur, no edema Chest (Breasts): Chest: normal inspection of chest Gastrointestinal (Abdomen): normal bowel sounds, soft, nontender, no hepatosplenomegaly Musculoskeletal: Extremities: extremities normal to inspection; no cyanosis and no clubbing Skin: no rashes, warm and dry Neurologic: moves all extremities and awake; no focal motor deficits Lymphatic: no lymphedema Results & Data Results & Data Vital Signs (Past 12 Hours) Vital Signs Temp Pulse Resp BP Pulse Ox O2 Del Method 09/25/23 08:01 Room Air 09/25/23 07:28 36.8 C 70 16 144/81 H 93 Room Air Laboratory Results CBC, BMP, magnesium reviewed PG Care Time/CCT Total # of Minutes Spent Total Time Spent with Patient: Total time spent is greater than 50% in coordination of care (as documented) at patient's floor/unit and/or counseling patient: Coding Level of Care Code 19897 SUB INP/OBS CARE 2/35MIN Diagnoses Closed compression fracture of L1 vertebra S32.010A Hypokalemia E87.6 Hypomagnesemia E83.42 UTI (urinary tract infection) N39.0 Diverticulitis K57.92 GERD (gastroesophageal reflux disease) K21.9 Thrombocytopenia D69.6
--- NOTE | 2023-09-25 13:28 | Anesthesiology Consultation ---
Date of Service September 25, 2023 Assessment & Plan Chart Review Chart Review: Acceptable Risk for Surgery and Patient NOT seen in Pre Admission Testing Consults Requested none ASA ASA3 Proposed Anesthesia Anesthesia Type: General History Surgery Operation Date: 09/25/23 15:25 Proposed Procedures p L1 Kyphoplasty - Williams Mixon DO Height/Weight Height: 5 ft 4 in Weight: 120.5 kg Allergies Allergy/AdvReac Type Severity Reaction Status Date / Time NSAIDS (Non-Steroidal Allergy Unknown THROMBOCYTO Verified 09/23/23 17:46 Anti-Inflamma PENIA sumatriptan AdvReac Intermediate PANIC Verified 09/23/23 17:46 ATTACKS ketorolac AdvReac Mild SKIN Verified 09/23/23 17:46 IRRITATION Medications Home Medications Medication Instructions Recorded Confirmed Last Taken alprazolam 0.5 mg tablet 0.5 mg PO QID PRN Anxiety 01/23/22 09/23/23 Unknown escitalopram oxalate 10 mg tablet See Rx Instructions .Route .COMPLEX 01/23/22 09/23/23 03/06/23 escitalopram oxalate 20 mg tablet See Rx Instructions .Route .COMPLEX 01/23/22 09/23/23 03/06/23 omeprazole 20 mg capsule,delayed 20 mg PO QAM #90 caps 01/24/23 09/23/23 Unknown release ondansetron 4 mg disintegrating 4 mg PO Q8H PRN nausea and 03/20/23 09/23/23 Unknown tablet vomiting #7 tabs fenofibrate nanocrystallized 145 145 mg PO QAM 03/21/23 09/23/23 Unknown mg tablet Active Medications Generic Name Dose Route Start Last Admin Trade Name Freq PRN Reason Stop Dose Admin Escitalopram Oxalate 20 mg 09/20/23 09:00 09/25/23 08:06 Escitalopram Oxalate 20 Mg Tab PO 10/20/23 08:59 20 mg QAM ELADIO Administration Fenofibrate 145 mg 09/20/23 09:00 09/25/23 08:07 Fenofibrate Nanocrystallized 145 Mg Tablet PO 10/20/23 08:59 145 mg QAM ELADIO Administration Hydromorphone HCl 2 mg 09/23/23 10:20 09/25/23 12:17 Hydromorphone Inj 2 Mg/Ml Syr/Vial IV 10/05/23 10:34 2 mg Q3H PRN Administration Pain Lorazepam 0.5 mg 09/20/23 07:44 09/25/23 06:25 Lorazepam 0.5 Mg Tab PO 10/20/23 07:43 0.5 mg Q6H PRN Administration Anxiety Ondansetron HCl 4 mg 09/20/23 00:50 09/25/23 10:32 Ondansetron Inj 2 Mg/Ml 2 Ml Vial IV 10/20/23 00:49 4 mg Q6H PRN Administration Nausea Pantoprazole Sodium 40 mg 09/20/23 09:00 09/25/23 08:07 Pantoprazole 40 Mg Tab PO 10/20/23 08:59 40 mg QAM ELADIO Administration Past Medical History Medical History Diverticulitis Chronic pain History of anesthesia reaction decreased SPo2 during the ventral hernia surgery. patient had to stay overnight post op Vocal cord polyp monitoring - scheduled in October 2023 with ENT Osteoporotic compression fracture of spine (01/23/22) Anxiety GERD (gastroesophageal reflux disease) Thrombocytopenia chronic Compression fracture hx - chronic pain Post traumatic stress disorder (PTSD) Depression morbid obesity Exercise / Class Metabolic Activity III < 4 Walking/Shop/Light housework Past Family History Family History Father Colorectal cancer Brother Colorectal cancer Denies family history of Ovarian cancer Prostate cancer Myocardial infarction Breast cancer Past Surgical History Surgical History H/O ventral hernia repair H/O bilateral breast reduction surgery History of esophagogastroduodenoscopy (EGD) History of colonoscopy History of back surgery lumbar surgery (in office at time of injury) History of appendectomy History of cholecystectomy H/O: hysterectomy ZARINA with BSo H/O tooth extraction History of bowel resection (~2014) r/t perforatedf diverticulitis Past Anesthesia History No Hx of Anesthesia Complications and No Family Hx of Anesthesia Complications History of PONV No Hx of PONV and No Hx of Motion Sickness Social History Smoking Status: Current every day smoker Smoking cigarettes per day: 2 a day Do You Dip or Chew Tobacco: No Hx Alcohol Use: No Alcohol type: beer alcohol intake frequency: 3 or more drinks per day Hx Substance Use: No substance use type: does not use Last Used Substance Other:: 03/21/23 at 0300 Physical Exam Vital Signs Last Vital Signs Temp 36.8 C 09/25/23 07:28 Pulse 70 09/25/23 07:28 Resp 16 09/25/23 07:28 BP 144/81 H 09/25/23 07:28 Pulse Ox 93 09/25/23 07:28 O2 Del Method Room Air 09/25/23 08:01 Testing Laboratory Results 09/25/23 09:50 09/25/23 09:50 Urine Color Dark Yellow 09/19/23 20:53 Urine Appearance Cloudy (Clear) A 09/19/23 20:53 Urine pH 5.5 (4.5-7.5) 09/19/23 20:53 Ur Specific [place] 1.019 (1.000-1.030) 09/19/23 20:53 Urine Protein Negative (Negative) 09/19/23 20:53 Urine Glucose (UA) Negative (Negative) 09/19/23 20:53 Urine Ketones Trace (Negative) H 09/19/23 20:53 Urine Nitrite Negative (Negative) 09/19/23 20:53 Ur Leukocyte Esterase 2+ (Negative) H 09/19/23 20:53 Urine WBC (Auto) >30 /hpf (0-5) H 09/19/23 20:53 Urine RBC (Auto) 0-4 /hpf (0-4) 09/19/23 20:53 U Hyaline Cast (Auto) 0 /lpf (0-5) 09/19/23 20:53 U Epithel Cells (Auto) >30 /lpf (0-5) H 09/19/23 20:53 Urine Bacteria (Auto) 4+ (Negative) H 09/19/23 20:53 09/19/23 20:53 Urine Culture - Final Urine,Clean Catch Klebsiella pneumoniae
[2023-09-25] MEDS: LACTATED RINGER'S 1,000 ML IV SCH ×2 (14:20→14:33)
--- NOTE | 2023-09-25 14:35 | History & Physical Bridge Note ---
Date of Service September 25, 2023 History & Physical Bridge Note I have examined the patient, reviewed the History & Physical and in the interval since the performance of the History & Physical I have noted the following changes of clinical significance: no changes noted Kyphoplasty L1
[2023-09-25] MEDS ORDERED: fentaNYL citrate PF 100 MCG/2 ML VIAL ONE (14:36)
[2023-09-25] MEDS ORDERED: MIDAZOLAM HCL 1 MG/ML 2ML VIAL ONE (14:36)
[2023-09-25] MEDS ORDERED: ATROPINE SULFATE 0.1 MG/ML 10ML SYR IV PRN (14:39)
[2023-09-25] MEDS ORDERED: HYDROmorphone INJ 1 MG/ML SYRINGE IV PRN (14:39)
[2023-09-25] MEDS ORDERED: PROMETHAZINE HCL 6.25 MG in SODIUM CHLORIDE 0.9% 50 ML IV PRN (14:39)
[2023-09-25] MEDS ORDERED: FLUMAZENIL 0.1 MG/1 ML 10 ML VIAL IV PRN (14:39)
[2023-09-25] MEDS ORDERED: ePHEDrine sulfate 50 MG/ML AMP IV PRN (14:39)
[2023-09-25] MEDS ORDERED: NALOXONE HCL 0.4 MG/1 ML VIAL/CARP IV PRN (14:39)
--- NOTE | 2023-09-25 14:45 | Electrocardiogram Report ---
Test Reason : Blood Pressure : / mmHG Vent. Rate : 059 BPM Atrial Rate : 059 BPM P-R Int : 166 ms QRS Dur : 086 ms QT Int : 432 ms P-R-T Axes : 029 037 040 degrees QTc Int : 427 ms Sinus bradycardia Otherwise normal ECG When compared with ECG of 02-JAN-2014 13:06, QT has shortened Confirmed by Antwon Muro ([id number]) on 09/25/2023 2:44:35 PM Referred By: REFERRED SELF Confirmed By:Antwon Muro
[2023-09-25] MEDS: ceFAZolin 3000MG 3,000 MG/72.5 ML BAG IV SCH (14:52)
[2023-09-25] MEDS ORDERED: ONDANSETRON INJ 2 MG/ML 2 ML VIAL ONE (15:34)
[2023-09-25] MEDS ORDERED: PROPOFOL IV EMULSION 10 MG/ML 20 ML VIAL IV ONE (15:34)
[2023-09-25] MEDS ORDERED: DEXAMETHASONE SOD INJ 4 MG/ML VIAL ONE (15:34)
[2023-09-25] MEDS ORDERED: LIDOCAINE 2% 2 ML VIAL/AMP(20MG/ML) INFIL ONE (15:34)
[2023-09-25] MEDS ORDERED: ROCURONIUM BROMIDE 10 MG/ML 5 ML VIAL IV ONE (15:34)
[2023-09-25] MEDS ORDERED: ePHEDrine sulfate 50 MG/5 ML SYR ONE (15:34)
[2023-09-25] MEDS ORDERED: SUGAMMADEX SODIUM 200 MG/2 ML VIAL IV ONE (15:35)
--- NOTE | 2023-09-25 15:53 | Operative Report ---
Post Operative Report Pre & Post Diagnosis Pre-Op diagnosis Osteoporotic compression fracture L1 Morbid obesity Postop diagnosis Same I identified the patient and participated in the time-out.: Yes Procedure Operation Date: 09/25/23 15:25 #1 kyphoplasty of L1 vertebral body. #2 biopsy of L1 vertebral body Surgeon Williams Mixon DO Polisher Implant None Estimated Blood Loss 5 Findings Consistent with Post-Op Diagnosis Specimens Biopsy of L1 vertebral body Indications This is a 68-year-old female presents above-mentioned diagnosis after attempted medical management and physical therapy she still with incapacitating back pain and limitation is subsequently here for surgical intervention. Description of Procedure Patient was met with identified informed consent obtained. Patient was then taken to the operative suite underwent patient placed in a prone position on the Leonardo table with chest padded bolsters. All bony prominences well-padded eyes inspected to ensure no external pressure placed upon the. The assistance of fluoroscopy in AP and lateral planes identified the L1 vertebral body. 2 small incisions were placed just lateral to the pedicles into Kyphon working cannulas were placed by way of a transpedicular approach into the L1 vertebral body. Core biopsies were obtained. I then inserted 2 Kyphon 15 mm balloons within the vertebral body and sequentially inflated with fluoroscopic visualization. They were subsequently removed and approximately 7 cc of Kyphon cement injected with fluoroscopic visualization demonstrating excellent interdigitation and fill of the fracture. After this was complete the working apparatus was removed all incisions closed with subcutaneous Monocryl and sterile dressings placed. Patient awakened taken to PACU in stable condition. I attest to the content of the Intraoperative Record and any orders documented therein. Any exceptions are noted below.
[2023-09-25] MEDS ORDERED: DexMEDEtomidine HCL IV 100 MCG/ML VIAL IV ONE (16:02)
[2023-09-25] MEDS: BUPIVACAINE 0.25% PF 30 ML VIAL ONE (16:15)
[2023-09-25] MEDS: EPINEPHrine INJ 1 MG/ML AMP ONE (16:16)
[2023-09-25] MEDS: fentaNYL citrate PF 100 MCG/2 ML VIAL IV PRN (16:19)
[2023-09-25] MEDS: IOPAMIDOL INJ 61% 15 ML VIAL INSTIL ONE (16:19)
--- NOTE | 2023-09-25 16:50 | Anesthesiology Progress Note ---
Date of Service September 25, 2023 Anesthesia Post Procedure Vital Signs Vital Signs: Temp Pulse Pulse Resp BP BP Pulse Ox 09/25/23 16:40 69 15 168/87 H 97 09/25/23 16:30 67 16 158/75 H 99 09/25/23 16:20 71 19 160/88 H 99 09/25/23 16:10 36.1 C L 80 18 173/79 H 99 09/25/23 13:55 37.1 C 65 20 152/92 H 93 09/25/23 08:01 09/25/23 07:28 36.8 C 70 16 144/81 H 93 09/24/23 20:00 09/24/23 19:37 37.3 C 65 16 118/77 96 O2 Del Method O2 Flow Rate 09/25/23 16:40 Nasal Cannula 2 09/25/23 16:30 Oxymask 5 09/25/23 16:20 Oxymask 9 09/25/23 16:10 Oxymask 9 09/25/23 13:55 Room Air 09/25/23 08:01 Room Air 09/25/23 07:28 Room Air 09/24/23 20:00 Room Air 09/24/23 19:37 Room Air Pain Intensity Back: Pain Intensity: 7 Transfer of Care Handoff Completed per policy Notes Mental Status: alert / awake / arousable Patient Amnestic to Procedure: Yes Nausea / Vomiting: adequately controlled Pain: adequately controlled Airway Patency, RR, SpO2: stable & adequate BP & HR: stable & adequate Hydration State: stable & adequate Anesthetic Complications: no major complications apparent
--- NOTE | 2023-09-25 17:10 | Fluoroscopy Report ---
FL kyphoplasty any level CLINICAL HISTORY: L1 KYPHOPLASTY TECHNIQUE: 2 views were obtained with the C-arm in the OR with the above procedure. Total fluoroscopy time was 140 seconds. Radiation dose was 164 mGy. Comparison: Comparison is made to MRI lumbar spine 09/19/2023 FINDINGS/IMPRESSION: Intraoperative images were obtained of L1 kyphoplasty. Please correlate with intraoperative fluoroscopy and operative report. ACT 112: Negative or not required by law. Electronically signed by: Francisco Watson M.D. 09/25/2023 5:09 PM
[2023-09-26 06:52] LABS: Albumin Globulin Ratio 1.2 (0.9-2); Albumin Level 3.6 gm/dl (3.4-5.0); BUN Creatinine Ratio 9.3 (10-20); Bilirubin,Total 0.7 mg/dl (0.2-1.0); Calcium 9.5 mg/dl (8.6-10.3); Creatinine Clr Calc Pharmacy 94.4 ml/min; Est GFR (African American) 96.3 ml/min; Est GFR (Non-African American) 83.1 ml/min; Globulin 2.9 gm/dl (2.5-4.0); Magnesium 1.7 mg/dl (1.7-2.4); Potassium 4.1 mmol/L (3.5-5.1); Total Protein 6.5 gm/dl (6.0-8.3)
[2023-09-26 07:13] LABS: Folate (Folic Acid),Ser orPlas 5.43 ng/ml (>5.38)
[2023-09-26 07:27] LABS: Basophils # (auto) 0.01 K/uL (0.00-0.20); Basophils % (auto) 0.1 %; Eosinophils # (auto) 0.06 K/uL (0.00-0.50); Eosinophils % (auto) 0.8 %; Hematocrit (blood only) 41.7 % (37.0-47.0); Hemoglobin 13.7 g/dl (12.0-16.0); Immature Granulocytes # (auto) 0.04 K/uL (0.01-0.20); Immature Granulocytes % (auto) 0.5 %; Lymphocytes # (auto) 1.05 K/uL (1.20-3.40); Lymphocytes % (auto) 14.2 %; Mean Corpuscular Hemoglobin 30.8 pg (25.0-34.0); Mean Corpuscular Hgb Conc 32.9 g/dL (32.0-36.0); Mean Corpuscular Volume 93.7 fL (80.0-100.0); Monocytes # (auto) 0.37 K/uL (0.11-0.59); Neutrophils # (auto) 5.86 K/uL (1.40-6.50); Neutrophils % (auto) 79.4 %; Platelet Count 53 K/uL (130-400); Platelet Estimate Decreased (Normal); Polychromasia 1+; RDW Standard Deviation 44.4 fL (36.4-46.3); Red Blood Count 4.45 M/uL (4.20-5.40); Toxic Vacuolation 1+; White Blood Count 7.39 K/ul (4.8-10.8)
[2023-09-26] MEDS ORDERED: oxyCODONE HCL IR 5 MG TAB (IMMEDIATE RELEASE) PO PRN (09:56)
[2023-09-26] MEDS ORDERED: HYDROmorphone INJ 1 MG/ML SYRINGE IV PRN (09:57)
--- NOTE | 2023-09-26 09:59 | Orthopedic Progress Note ---
Date of Service September 26, 2023 Assessment & Plan (1) Closed compression fracture of L1 vertebra: Plan: she is improving appropriately. She can ambulate as tolerated. She is stable from orthopedic standpoint for discharge. Admission and Anticipated Discharge Date Admission Date: September 19, 2023 Subjective Back pain markedly improved Physical Exam Physical Exam: Patient is currently in bed. She is strength testing appears comfortable. Results & Data Vital Signs (Past 12 Hours) Vital Signs Temp Pulse Pulse Resp BP BP Pulse Ox 09/26/23 08:00 09/26/23 07:24 36.7 C 59 L 16 131/64 93 09/26/23 04:36 36.9 C 61 16 139/88 92 09/26/23 00:37 36.8 C 66 16 154/90 H 95 O2 Del Method O2 Flow Rate 09/26/23 08:00 Room Air 09/26/23 07:24 Nasal Cannula 2 09/26/23 04:36 Nasal Cannula 2 09/26/23 00:37 Room Air Queries Orthopedic Spine Obesity: Yes
[2023-09-26] MEDS: oxyCODONE HCL IR 5 MG TAB (IMMEDIATE RELEASE) PO PRN (13:49)
--- NOTE | 2023-09-26 14:57 | Discharge Summary ---
Discharge Summary Date of Service September 26, 2023 Notes For Next Care Provider Medication Changes From Visit Added oxycodone 5-10mg po q4h prn Admission HPI Per Admitting Provider The patient is a 68-year-old female with past medical history including PTSD, thrombocytopenia, GERD, anxiety, history of lumbar compression fractures, dyslipidemia and obesity. She had been recently assessed with a CT scan of the lumbar spine at [facility] on 09/11/2023, which showed superior endplate compression fractures of L2 and L3 vertebral bodies with nearly 30 to 40% reduction in the height of the L2 vertebral body and 20 to 30% reduction in height of L3 vertebral body, with noted significant interval progression since previous study. They appeared to be osteoporotic in nature/posttraumatic. The patient also had a CT scan of abdomen and pelvis on 09/17/2023 at [facility], which showed concerns regarding possible infectious/inflammatory pneumonitis, multiple subcentimeter pulmonary nodules that warranted follow-up, and findings concerning for mild developing uncomplicated diverticulitis. This evening in the emergency department the patient did have an MRI of her lumbar spine which showed acute L1 superior endplate fracture, and acute on chronic L2 superior endplate fracture, both amenable to kyphoplasty. The patient did also report some mild generalized abdominal discomfort, and did have 1 episode of loss of bowel control while in the ED. She did have an episode of feeling warm earlier in the week Principal Dx & Hospital Course #1 = Principal Diagnosis (1) Closed compression fracture of L1 vertebra: L1 and L2. With osteoporosis Appreciate orthopedic spine consultation and recommendations. Underwent L1 kyphoplasty on September 24, doing well post-op, pain fairly well controlled with po oxycodone and ready for discharge f/u with Dr. Mixon of Ortho Spine in 2-3 weeks continue f/u with PCP for tx of osteoporosis-she has tried various medications in the past but cannot recall the names-consider Endo or Rheum referral (2) Hypokalemia: Corrected (3) Hypomagnesemia: Corrected (4) UTI (urinary tract infection): Klebsiella isolated. Pansensitive. Cefepime switched to Rocephin. She has completed her course of antibiotic (5) Diverticulitis: Mild possible acute sigmoid diverticulitis seen on outside hospital CT abd/pel from 10 days prior. No abd pain at that site Is overdue for colonoscopy-recommend scope in 4-6 weeks and she will arrange with GI in [place] Tolerating diet, treated with Cefepime and rocephin (6) GERD (gastroesophageal reflux disease): Stable. Continue PPI therapy (7) Thrombocytopenia: platelets low since 2012, does not follow with Heme platelets 41-50k, stable from previous, no bleeding from anywhere follow CBC as outpt f/u with Heme as outpt if desired by PCP avoid ASA, NSAIDs, and anticoagulation if < 50k Plan DVT proph-Lovenox stopped for procedure and would not resume given low platelets. SCDs only Dispo-dc to home Discharge Exam Constitutional WD/WN, vitals as above Neck trachea midline, no thyromegaly Respiratory normal respiratory effort, lungs clear to auscultation Cardiovascular RRR, no murmur, no edema Chest (Breasts) Chest: normal inspection of chest Gastrointestinal (Abdomen) normal bowel sounds, soft, nontender, no hepatosplenomegaly Musculoskeletal Extremities: extremities normal to inspection; no cyanosis and no clubbing Skin no rashes, warm and dry Neurologic moves all extremities and awake; no focal motor deficits Lymphatic no lymphedema Updated Medication List Medication Instructions Recorded Confirmed Type alprazolam 0.5 mg tablet 0.5 mg PO QID PRN Anxiety 01/23/22 09/23/23 History escitalopram oxalate 10 mg tablet See Rx Instructions .Route .COMPLEX 01/23/22 09/23/23 History escitalopram oxalate 20 mg tablet See Rx Instructions .Route .COMPLEX 01/23/22 09/23/23 History omeprazole 20 mg capsule,delayed 20 mg PO QAM #90 caps 01/24/23 09/23/23 Rx release ondansetron 4 mg disintegrating 4 mg PO Q8H PRN nausea and 03/20/23 09/23/23 Rx tablet vomiting #7 tabs fenofibrate nanocrystallized 145 145 mg PO QAM 03/21/23 09/23/23 History mg tablet acetaminophen 325 mg tablet 650 mg (2 x 325 mg) PO Q4H PRN 09/26/23 Rx pain #30 tabs oxycodone 5 mg tablet 5 - 10 mg (1 - 2 x 5 mg) PO Q4H 09/26/23 Rx PRN moderate-severe pain #30 tabs Hospital Stay Data Consultations 09/19/23 21:34 ED Decision to Admit Stat 09/20/23 13:19 Consult Orthopedic Spine Surgery Routine Procedures Performed Operation Date: 09/25/23 15:25 Actual Procedures p L1 Kyphoplasty with Bone Biopsy(Not Applicable) - Williams Mixon, Diagnostic Imagining Performed 09/19/23 21:51 MR lumbar spine wo/w con Stat 09/25/23 15:25 FL kyphoplasty any level Routine Pending Results Patient Have Any Pending Studies at Discharge: No Discharge Instructions Given to Patient (Per Discharging Provider) You were treated with pain medication and had a procedure to improve the pain of your compression fractures in the spine. You were also treated with antibiotics for a UTI and for possible mild diverticulitis. Please make sure you follow up with your GI doctor for a colonoscopy in the next 4-6 weeks. Total Time Total Time Spent Total Time Spent (In Minutes): 35 min Total Time Includes: Examination of the Patient, Discharge Planning and Medication Reconciliation Coding Level of Care Code 95852 INP/OBS DISCH >30 MIN Diagnoses Closed compression fracture of L1 vertebra S32.010A Hypokalemia E87.6 Hypomagnesemia E83.42 UTI (urinary tract infection) N39.0 Diverticulitis K57.92 GERD (gastroesophageal reflux disease) K21.9 Thrombocytopenia D69.6
== END 2023-09-26 15:39 | disposition home or self-care (01) | DRG 478 ==
LOC: ED 16:35 → SUATTDRO 23:00 → 3N 23:00
DX: F43.10 Post-traumatic stress disorder, unspecified; Z68.42 Body mass index [BMI] 45.0-49.9, adult; M80.88XA Other osteoporosis with current pathological fracture, vertebra(e), initial encounter for fracture; B96.1 Klebsiella pneumoniae [K. pneumoniae] as the cause of diseases classified elsewhere; F32.A Depression, unspecified; Z88.6 Allergy status to analgesic agent; F41.9 Anxiety disorder, unspecified; E87.6 Hypokalemia; K57.92 Diverticulitis of intestine, part unspecified, without perforation or abscess without bleeding; E83.42 Hypomagnesemia; N39.0 Urinary tract infection, site not specified; D69.6 Thrombocytopenia, unspecified; F17.210 Nicotine dependence, cigarettes, uncomplicated; K21.9 Gastro-esophageal reflux disease without esophagitis; E66.01 Morbid (severe) obesity due to excess calories

== ENCOUNTER 2023-10-19 13:30 | Inpatient (IN) ==
--- NOTE | 2023-10-19 14:08 | ED Triage Note ---
Date of Service October 19, 2023 Provider in Triage Author: Anjelica Gamez History of Present Illness This patient was briefly evaluated while in triage. An abbreviated physical exam was performed. This patient is a 68-year-old Female who presents to the ED for evaluation of UTI symptoms with back pain. History of back surgery by Dr. Mixon on 09/25/23. Feels like she's going to pass out. She was admitted overnight at [facility] and couldn't get her into a rehab facility so she was discharged home yesterday. She saw her PCP today and the patient states that she was sent to the ER to get admitted. Physical Exam GENERAL: Non-toxic and in no acute distress. HEENT: Pupils equal. No obvious scleral icterus. HEART: Regular rate and rhythm. LUNGS: Clear to auscultation. No accessory muscle use. ABDOMEN: Soft, diffusely tender to palpation. NEURO: Alert and oriented. No obvious neurological deficits on quick neuro exam. MUSCULOSKELETAL: Tender to palpation over the lumbar spine. Initial orders for labs and / or imaging were placed and patient was placed in the waiting area until a bed is available. Please see further documentation for the full ED course. MDM / Impression Impression Impression: Compression fracture of T12 vertebra
[2023-10-19] MEDS: SODIUM CHLORIDE 0.9% 500 ML IV STA (14:26)
[2023-10-19] MEDS: ACETAMINOPHEN 1,000 MG/100 ML VIAL IV STA (14:26)
[2023-10-19 14:49] LABS: Basophils # (auto) 0.04 K/uL (0.00-0.20); Basophils % (auto) 0.4 %; Eosinophils # (auto) 0.16 K/uL (0.00-0.50); Eosinophils % (auto) 1.7 %; Hematocrit (blood only) 48.9 % (37.0-47.0); Hemoglobin 16.4 g/dl (12.0-16.0); Immature Granulocytes # (auto) 0.04 K/uL (0.01-0.20); Immature Granulocytes % (auto) 0.4 %; Lymphocytes # (auto) 1.78 K/uL (1.20-3.40); Lymphocytes % (auto) 18.8 %; Mean Corpuscular Hemoglobin 30.4 pg (25.0-34.0); Mean Corpuscular Hgb Conc 33.5 g/dL (32.0-36.0); Mean Corpuscular Volume 90.7 fL (80.0-100.0); Mean Platelet Volume 13.2 fL (9.4-12.4); Monocytes # (auto) 0.49 K/uL (0.11-0.59); Monocytes % (auto) 5.2 %; Neutrophils # (auto) 6.94 K/uL (1.40-6.50); Neutrophils % (auto) 73.5 %; Platelet Count 56 K/uL (130-400); RDW Coefficient of Variation 12.9 % (11.5-14.5); RDW Standard Deviation 42.7 fL (36.4-46.3); Red Blood Count 5.39 M/uL (4.20-5.40); White Blood Count 9.45 K/ul (4.8-10.8)
--- NOTE | 2023-10-19 15:00 | XRay Report ---
XR chest 1V not portable HISTORY: 68 years-old Female Abdominal and back pain acute chest and abdominal pain COMPARISON: Chest CT 09/17/2023 TECHNIQUE: AP view of the chest FINDINGS: Cardiac silhouette is mildly enlarged. Atherosclerosis of the aorta. No pneumothorax, pleural effusio n, airspace consolidation or pulmonary edema. Degenerative changes of the shoulders and spine. IMPRESSION: No acute process. ACT 112: Negative or not required by law. The above report was generated using voice recognition software. It may contain grammatical, syntax o r spelling errors. Electronically signed by: Ruben Sanders M.D. 10/19/2023 2:58 PM
[2023-10-19 15:07] LABS: Alanine Aminotransferase 19 U/L (7-52); Albumin Globulin Ratio 1.2 (0.9-2); Albumin Level 4.3 gm/dl (3.4-5.0); Alkaline Phosphatase 108 U/L (34-104); Anion Gap 11 (3-11); Aspartate Aminotransferase 36 U/L (13-39); BUN Creatinine Ratio 12.3 (10-20); Blood Urea Nitrogen 8 mg/dl (6-23); Calcium 10.3 mg/dl (8.6-10.3); Carbon Dioxide 24 mmol/L (21-32); Chloride 98 mmol/L (98-107); Est GFR (African American) 107.2 ml/min; Est GFR (Non-African American) 92.5 ml/min; Globulin 3.5 gm/dl (2.5-4.0); Glucose 101 mg/dl (70-99(Fasting)); Lipase 15 U/L (11-82); Magnesium 1.7 mg/dl (1.7-2.4); Potassium 3.7 mmol/L (3.5-5.1); Sodium 133 mmol/L (136-145); Total Protein 7.8 gm/dl (6.0-8.3)
[2023-10-19 15:13] LABS: Troponin I High Sensitivity 5.4 pg/ml (0-14)
[2023-10-19 15:14] LABS: INR 1.1 (0.9-1.1); Partial Thromboplastin Ratio 1.1; Partial Thromboplastin Time 31 Seconds (21-31); Prothrombin Time 12.2 Seconds (9.0-12.0)
[2023-10-19] MEDS: OPTIRAY 320 100ml IV ONE (15:33)
--- NOTE | 2023-10-19 15:57 | CT Scan Report ---
CT OF THE ABDOMEN AND PELVIS WITH CONTRAST CLINICAL HISTORY: Abdominal pain, UTI symptoms. COMPARISON STUDY: CT of the abdomen and pelvis March 08, 2023. Lumbar spine CT October 10, 2023. Lum bar spine MRI September 19, 2023. TECHNIQUE: Following IV administration of 92 mL of Optiray, axial images of the abdomen and pelvis we re obtained from the lung bases to the proximal femurs. Images were reviewed in the axial, sagittal, and coronal planes. IV contrast was administered without complication. Automated exposure control wa s utilized for the study. A dose lowering technique was utilized adhering to the principles of ALARA . CT DOSE: 1709.09 mGy.cm FINDINGS: Lung bases are unremarkable. No pneumatosis, free air or portal venous gas is present. Ther e is hepatic steatosis. There is no biliary ductal dilatation status post cholecystectomy. Mild splen omegaly is unchanged. Adrenal glands, kidneys and pancreas are unremarkable. Is no hydronephrosis. Th ere is no evidence for a bowel obstruction. Mild presacral/retroperitoneal stranding is similar to pr ior exam. There is colonic diverticulosis without convincing evidence for acute diverticulitis. A sig moid anastomosis is noted. The appendix is not visualized. Old L2, L3 and L4 compression fractures ar e unchanged. The appearance of the L1 kyphoplasty is unchanged since prior lumbar spine CT. There is an acute appearing mild T12 compression fracture with concavity of the superior and inferior endplate s with 20% loss of vertebral body height centrally. Mild prevertebral edema is noted. No additional a cute fractures are identified. IMPRESSION: 1. Acute mild T12 compression fracture. No change in appearance of the L1 kyphoplasty. Old L2-L4 comp ression fractures. 2. No acute process within the abdomen or pelvis. No bowel wall thickening. No bowel obstruction. Col onic diverticulosis. No evidence for acute diverticulitis. Stable presacral/retroperitoneal stranding . ACT 112: Negative or not required by law. Electronically signed by: Kennedy Schaefer M.D. 10/19/2023 3:56 PM
--- NOTE | 2023-10-19 15:58 | Emergency Department Note ---
Impression & Plan Compression fracture of T12 vertebra ED Provider Note Diagnosis: T12 compression fracture, ambulatory dysfunction Disposition: Admission CHIEF COMPLAINT: HPI: Patient is a 68-year-old female presenting with complaint of generalized weakness decreased ability to ambulate. Patient states she was just in the hospital at [facility] due to urinary tract infection. Patient followed up with her primary care physician today and had significant weakness and trouble with ambulating and they recommended she come to our facility for further evaluation and potential placement in rehab. Patient denies any fevers or chills. Patient states she has she is having back pain. Patient does not have any redness or inflammation near the site of incisions. Patient states due to her urinary tract infection she has not been able to go and follow-up with her spine surgeon from procedure last month yet. PAST MEDICAL HISTORY: See Below PAST SURGICAL HISTORY: See Below SOCIAL HISTORY: See Below HOME MEDICATIONS: See Below ALLERGIES: See Below VITALS: See Below PHYSICAL EXAMINATION: GENERAL: Well appearing, well nourished, NAD, non-toxic. EYE EXAM: Normal conjunctiva. OROPHARYNX: Moist mucus membranes. Grossly normal dentition. NECK: Supple, LUNGS: Clear to auscultation. Normal chest wall mechanics. HEART: NSR ABDOMEN: Abdomen soft, non-tender, normo-active bowel sounds, no masses, no rebound or guarding BACK: No CVA TTP. Incisions clean dry and intact no signs of infection no erythema no warmth to the skin SKIN: No rashes and no bruising. UPPER EXTREMITIES: Upper extremities are grossly normal LOWER EXTREMITIES: Grossly normal, no edema. 5 out of 5 muscle strength lower extremities bilaterally, 2+ dorsal pedis pulses bilateral lower extremities, intact sensation lower extremities, no restriction of motion or cause of pain with lifting legs in the air NEURO EXAM: A&O x3,, normal speech, moves all 4 extremities PSYCH: Cooperative MEDICAL DECISION MAKING: History obtained from: Patient ER Course: Patient is a 68-year-old female presenting with complaint of ambulatory dysfunction and back pain. Patient had recent back surgery for a low L1 compression fracture. Patient also was seen at outside hospital for urinary tract infection. Patient went to primary care physician today and was sent here for potential admission for placement and short rehab stay. Patient's incision does not show any signs of infection at this time. Patient denies any recent falls. Patient had CT scan of abdomen pelvis as well as lumbar spine which shows a new T12 compression fracture from last imaging study. Labs (independently interpreted) are significant for: No electrolyte abnormalities Medications given: Morphine Consultants: Hospitalist Triage Nursing notes reviewed and agree them. 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/23/22) Anxiety GERD (gastroesophageal reflux disease) Thrombocytopenia Compression fracture Post traumatic stress disorder (PTSD) Depression Surgical History H/O ventral hernia repair H/O bilateral breast reduction surgery History of esophagogastroduodenoscopy (EGD) History of colonoscopy History of back surgery History of appendectomy History of cholecystectomy H/O: hysterectomy H/O tooth extraction History of bowel resection (~2014) Family History Father Colorectal cancer Brother Colorectal cancer Denies family history of Ovarian cancer Prostate cancer Myocardial infarction Breast cancer Social History Smoking Status: Former smoker Tobacco Type: Cigarettes Age Started Using Tobacco: 22; Cigarettes Per Day: 2 a day; Second Hand Exposure: Yes; Do You Dip or Chew Tobacco: No; Hx Alcohol Use: No Hx Substance Use: No Preferred Language: Polish Communication Ability: Effective Visual Impairment: No Limitations Hearing Ability: Normal Data Entry Technician Required: No Beliefs That Will Affect Care: None marital status: Current Living Situation: Spouse current occupational status: retired How many Children do You have: 4 Feels Safe at Home: Yes Childhood Exposure to Second-Hand Smoke: Yes Diet Comment: NO RED MEAT Dental Care, Regularly: No Physical Activity Frequency: Does not Exercise Seatbelt Use: always Sunscreen Use: No Assistive Devices: Walker, Wheelchair and Other Allergies Allergies Allergy/AdvReac Type Severity Reaction Status Date / Time NSAIDS (Non-Steroidal Allergy Unknown THROMBOCYTO Verified 10/19/23 11:49 Anti-Inflamma PENIA sumatriptan AdvReac Intermediate PANIC Verified 10/19/23 11:49 ATTACKS ketorolac AdvReac Mild SKIN Verified 10/19/23 11:49 IRRITATION Home Meds Home Medications Medication Instructions Recorded Confirmed alprazolam 0.5 mg tablet 0.5 mg PO QID PRN Anxiety 01/23/22 10/19/23 escitalopram oxalate 10 mg tablet 10 mg PO QAM 01/23/22 10/19/23 escitalopram oxalate 20 mg tablet 20 mg PO QAM 01/23/22 10/19/23 fenofibrate nanocrystallized 145 145 mg PO QAM 03/21/23 10/19/23 mg tablet hydrocodone 5 mg-acetaminophen 325 1 tab PO UD 10/19/23 10/19/23 mg tablet oxycodone 5 mg tablet 5 mg PO UD 10/19/23 10/19/23 Previous Rx's Medication Instructions Recorded omeprazole 20 mg capsule,delayed 20 mg PO QAM #90 caps 01/24/23 release acetaminophen 325 mg tablet 650 mg (2 x 325 mg) PO Q4H PRN 09/26/23 pain #30 tabs ondansetron 4 mg disintegrating 4 mg PO Q8H PRN nausea and 10/13/23 tablet vomiting #7 tabs ciprofloxacin HCl 500 mg tablet 500 mg PO Q12H #20 tabs 10/19/23 tizanidine 4 mg capsule 4 mg PO TID PRN muscle spasticity 10/19/23 #60 caps Results & Data (ED) Vital Signs Vital Signs - 24 hr 10/19/23 14:04 10/19/23 15:50 10/19/23 15:51 Temperature 36.6 C Temperature Source Temporal Artery Scan Pulse Rate 73 63 Pulse Rate [Apical] 70 Pulse Rate from SpO2 Sensor Pulse Rhythm Regular Pulse Strength [Apical] Normal Respiratory Rate 19 23 23 Respiratory Effort / Characteristics Non-Labored Spontaneous Respiratory Depth Normal Respiratory Pattern Regular Blood Pressure 158/93 H Blood Pressure [Right Arm] 177/107 H Blood Pressure Mean 114 Blood Pressure Mean [Right Arm] 130 Pulse Oximetry 95 95 95 Oxygen Delivery Method Room Air Room Air Room Air Sepsis Recent Fever Within 48 Hours No Sepsis New/Unexplained Change in Mental Status No Sepsis Action Taken by Nursing No Action Required 10/19/23 16:20 10/19/23 16:21 10/19/23 16:30 Temperature Temperature Source Pulse Rate 60 56 L 60 Pulse Rate [Apical] Pulse Rate from SpO2 Sensor 58 L 57 L Pulse Rhythm Pulse Strength [Apical] Respiratory Rate 18 18 Respiratory Effort / Characteristics Respiratory Depth Respiratory Pattern Blood Pressure Blood Pressure [Right Arm] Blood Pressure Mean Blood Pressure Mean [Right Arm] Pulse Oximetry 96 96 Oxygen Delivery Method Sepsis Recent Fever Within 48 Hours Sepsis New/Unexplained Change in Mental Status Sepsis Action Taken by Nursing 10/19/23 16:32 10/19/23 16:32 10/19/23 16:40 Temperature Temperature Source Pulse Rate 66 59 L Pulse Rate [Apical] Pulse Rate from SpO2 Sensor 64 63 Pulse Rhythm Pulse Strength [Apical] Respiratory Rate 14 16 Respiratory Effort / Characteristics Respiratory Depth Respiratory Pattern Blood Pressure 185/100 H Blood Pressure [Right Arm] Blood Pressure Mean 137 Blood Pressure Mean [Right Arm] Pulse Oximetry 92 94 Oxygen Delivery Method Sepsis Recent Fever Within 48 Hours Sepsis New/Unexplained Change in Mental Status Sepsis Action Taken by Nursing 10/19/23 16:50 10/19/23 17:00 10/19/23 17:00 Temperature Temperature Source Pulse Rate 63 63 Pulse Rate [Apical] 58 L Pulse Rate from SpO2 Sensor 63 Pulse Rhythm Pulse Strength [Apical] Respiratory Rate 17 20 17 Respiratory Effort / Characteristics Non-Labored Spontaneous Respiratory Depth Normal Respiratory Pattern Regular Blood Pressure Blood Pressure [Right Arm] 187/106 H Blood Pressure Mean Blood Pressure Mean [Right Arm] 133 Pulse Oximetry 95 92 Oxygen Delivery Method Room Air Sepsis Recent Fever Within 48 Hours Sepsis New/Unexplained Change in Mental Status Sepsis Action Taken by Nursing 10/19/23 17:00 10/19/23 17:10 10/19/23 17:20 Temperature Temperature Source Pulse Rate 63 60 Pulse Rate [Apical] Pulse Rate from SpO2 Sensor 64 60 Pulse Rhythm Pulse Strength [Apical] Respiratory Rate 20 22 Respiratory Effort / Characteristics Respiratory Depth Respiratory Pattern Blood Pressure 194/105 H Blood Pressure [Right Arm] Blood Pressure Mean 122 Blood Pressure Mean [Right Arm] Pulse Oximetry 93 94 Oxygen Delivery Method Sepsis Recent Fever Within 48 Hours Sepsis New/Unexplained Change in Mental Status Sepsis Action Taken by Nursing 10/19/23 17:30 10/19/23 17:30 10/19/23 17:40 Temperature Temperature Source Pulse Rate 64 60 Pulse Rate [Apical] Pulse Rate from SpO2 Sensor 63 61 Pulse Rhythm Pulse Strength [Apical] Respiratory Rate 19 17 Respiratory Effort / Characteristics Respiratory Depth Respiratory Pattern Blood Pressure 187/106 H Blood Pressure [Right Arm] Blood Pressure Mean 151 Blood Pressure Mean [Right Arm] Pulse Oximetry 92 93 Oxygen Delivery Method Sepsis Recent Fever Within 48 Hours Sepsis New/Unexplained Change in Mental Status Sepsis Action Taken by Nursing 10/19/23 17:50 10/19/23 18:00 10/19/23 18:00 Temperature Temperature Source Pulse Rate 63 61 Pulse Rate [Apical] Pulse Rate from SpO2 Sensor 63 61 Pulse Rhythm Pulse Strength [Apical] Respiratory Rate 17 17 Respiratory Effort / Characteristics Respiratory Depth Respiratory Pattern Blood Pressure 186/93 H Blood Pressure [Right Arm] Blood Pressure Mean 154 Blood Pressure Mean [Right Arm] Pulse Oximetry 93 90 Oxygen Delivery Method Sepsis Recent Fever Within 48 Hours Sepsis New/Unexplained Change in Mental Status Sepsis Action Taken by Nursing 10/19/23 18:10 10/19/23 18:20 10/19/23 18:30 Temperature Temperature Source Pulse Rate 61 64 64 Pulse Rate [Apical] Pulse Rate from SpO2 Sensor 62 64 64 Pulse Rhythm Pulse Strength [Apical] Respiratory Rate 11 L 16 15 Respiratory Effort / Characteristics Respiratory Depth Respiratory Pattern Blood Pressure Blood Pressure [Right Arm] Blood Pressure Mean Blood Pressure Mean [Right Arm] Pulse Oximetry 92 92 91 Oxygen Delivery Method Sepsis Recent Fever Within 48 Hours Sepsis New/Unexplained Change in Mental Status Sepsis Action Taken by Nursing 10/19/23 18:30 10/19/23 18:40 10/19/23 19:00 Temperature Temperature Source Pulse Rate 62 Pulse Rate [Apical] 56 L Pulse Rate from SpO2 Sensor 62 Pulse Rhythm Pulse Strength [Apical] Respiratory Rate 13 20 Respiratory Effort / Characteristics Respiratory Depth Respiratory Pattern Blood Pressure 204/119 H Blood Pressure [Right Arm] Blood Pressure Mean 163 Blood Pressure Mean [Right Arm] Pulse Oximetry 93 96 Oxygen Delivery Method Room Air Sepsis Recent Fever Within 48 Hours Sepsis New/Unexplained Change in Mental Status Sepsis Action Taken by Nursing Laboratory Data 10/19/23 14:26 10/19/23 14:26 Lab Results 10/19/23 Range/Units 14:26 WBC 9.45 (4.8-10.8) K/ul RBC 5.39 (4.20-5.40) M/uL Hgb 16.4 H (12.0-16.0) g/dl Hct 48.9 H (37.0-47.0) % MCV 90.7 (80.0-100.0) fL MCH 30.4 (25.0-34.0) pg MCHC 33.5 (32.0-36.0) g/dL RDW Std Deviation 42.7 (36.4-46.3) fL RDW Coeff of Deanne 12.9 (11.5-14.5) % Plt Count 56 L (130-400) K/uL MPV 13.2 H (9.4-12.4) fL Immature Gran % (Auto) 0.4 % Neut % (Auto) 73.5 % Lymph % (Auto) 18.8 % [place] % (Auto) 5.2 % Eos % (Auto) 1.7 % Baso % (Auto) 0.4 % Neut # (Auto) 6.94 H (1.40-6.50) K/uL Lymph # (Auto) 1.78 (1.20-3.40) K/uL [place] # (Auto) 0.49 (0.11-0.59) K/uL Eos # (Auto) 0.16 (0.00-0.50) K/uL Baso # (Auto) 0.04 (0.00-0.20) K/uL Immature Gran # (Auto) 0.04 (0.01-0.20) K/uL PT 12.2 H (9.0-12.0) Seconds INR 1.1 (0.9-1.1) APTT 31 (21-31) Seconds PTT Ratio 1.1 Sodium 133 L (136-145) mmol/L Potassium 3.7 (3.5-5.1) mmol/L Chloride 98 (98-107) mmol/L Carbon Dioxide 24 (21-32) mmol/L Anion Gap 11 (3-11) BUN 8 (6-23) mg/dl Creatinine 0.65 (0.6-1.2) mg/dl Est Cr Clr Drug Dosing Not Reportable Est GFR ( Amer) 107.2 ml/min Est GFR (Non-Af Amer) 92.5 ml/min BUN/Creatinine Ratio 12.3 (10-20) Glucose 101 H (70-99(Fasting)) mg/dl Lactate 1.5 (0.4-2.0) mmol/L Calcium 10.3 (8.6-10.3) mg/dl Magnesium 1.7 (1.7-2.4) mg/dl Total Bilirubin 1.0 (0.2-1.0) mg/dl AST 36 (13-39) U/L ALT 19 (7-52) U/L Alkaline Phosphatase 108 H (34-104) U/L Troponin I High Sens 5.4 (0-14) pg/ml Total Protein 7.8 (6.0-8.3) gm/dl Albumin 4.3 (3.4-5.0) gm/dl Globulin 3.5 (2.5-4.0) gm/dl Albumin/Globulin Ratio 1.2 (0.9-2) Lipase 15 (11-82) U/L Administered Medications Acetaminophen (Acetaminophen 325 Mg Tab) 650 mg PO Q6H ELADIO Stop: 11/18/23 20:59 Last Admin: 10/19/23 20:09 Dose: 650 mg Documented By: LAURA Calcitonin Yantic (Calcitonin Yantic Na 200 Iu/Ac 3.7 Ml Btl) 1 sprays NA DAILY ELADIO Stop: 11/18/23 19:29 Last Admin: 10/19/23 21:12 Dose: 1 sprays Documented By: LAURA Ceftriaxone Sodium 2,000 mg/ (Dextrose) 50 mls @ 100 mls/hr IV Q24H [facility]; Protocol Stop: 10/24/23 19:59 Last Admin: 10/19/23 21:05 Dose: 100 mls/hr Documented By: LAURA Parenteral Electrolytes (Plasma-Lyte A Ph 7.4) 1,000 mls @ 100 mls/hr IV .Q10H ELADIO Stop: 10/20/23 05:29 Last Admin: 10/19/23 20:09 Dose: 100 mls/hr Documented By: LAURA Discontinued Medications Cyclobenzaprine HCl (Cyclobenzaprine Hcl 10 Mg Tab) 10 mg PO NOW STA Stop: 10/19/23 19:21 Last Admin: 10/19/23 20:09 Dose: 10 mg Documented By: LAURA Sodium Chloride (Nss) 500 mls @ 999 mls/hr IV .Q31M STA Stop: 10/19/23 14:38 Last Infusion: 10/19/23 15:53 Dose: Infused Documented By: Admin: 10/19/23 14:26 Dose: 999 mls/hr Documented By: MAURO Acetaminophen (Ofirmev) 1,000 mg in 100 mls @ 400 mls/hr IV NOW STA Stop: 10/19/23 14:24 Last Infusion: 10/19/23 15:53 Dose: Infused Documented By: Admin: 10/19/23 14:26 Dose: 400 mls/hr Documented By: MAURO Ioversol (Optiray 320 100ml) 92 ml IV ONCE ONE Stop: 10/19/23 15:33 Last Admin: 10/19/23 15:33 Dose: 92 ml Documented By: NIKO Morphine Sulfate (Morphine Sulfate 4 Mg/Ml 1 Ml Carp\Vial) 4 mg IV NOW STA Stop: 10/19/23 16:25 Last Admin: 10/19/23 16:28 Dose: 4 mg Documented By: LAURA Morphine Sulfate (Morphine Sulfate 4 Mg/Ml 1 Ml Carp\Vial) 4 mg IV NOW STA Stop: 10/19/23 17:30 Last Admin: 10/19/23 17:44 Dose: 4 mg Documented By: LAURA Ondansetron HCl (Ondansetron Inj 2 Mg/Ml 2 Ml Vial) 4 mg IV NOW STA Stop: 10/19/23 17:16 Last Admin: 10/19/23 17:20 Dose: 4 mg Documented By: LCD Imaging Data Radiologist's Impression: Chest X-Ray 10/19/23 14:08 XR chest 1V not portable HISTORY: 68 years-old Female Abdominal and back pain acute chest and abdominal pain COMPARISON: Chest CT 09/17/2023 TECHNIQUE: AP view of the chest FINDINGS: Cardiac silhouette is mildly enlarged. Atherosclerosis of the aorta. No pneumothorax, pleural effusion, airspace consolidation or pulmonary edema. Degenerative changes of the shoulders and spine. IMPRESSION: No acute process. ACT 112: Negative or not required by law. The above report was generated using voice recognition software. It may contain grammatical, syntax or spelling errors. Electronically signed by: Ruben Sanders M.D. 10/19/2023 2:[address] 10/19/23 14:08 CT SCAN OF THE LUMBAR SPINE WITH IV CONTRAST CLINICAL HISTORY: Low back pain. Recent surgery. COMPARISON STUDY: CT scan of the lumbar spine dated 10/10/2023 and 02/07/2022. TECHNIQUE: CT scan of the lumbar spine is performed from the lower thoracic spine to the sacrum following the administration of 92 cc of Optiray 320. Images are reviewed in axial, sagittal, and coronal planes. IV contrast was administered without complication. A dose lowering technique was utilized adhering to the principles of ALARA. FINDINGS: The skeletal structures are osteopenic. Again seen is a superior endplate compression fracture of L1 status post vertebroplasty. There is minimal retropulsion of fragments. This is unchanged from 10/10/2023. Chronic superior endplate compression deformities of L2 and L3 are also unchanged. No acute fracture is identified involving the lumbar spine. There is a mild acute inferior endplate compression fracture of T12. This is new from previous. Mild paravertebral edema is noted. No retropulsion of fragments is seen. There is no malalignment. Vertebral body height is maintained at L4 and L5. Alignment is preserved. The transverse and spinous processes appear intact. There is no spondylolysis. No lytic or blastic lesion is seen. Anterior and lateral marginal osteophytes are seen throughout. There is moderate disc space narrowing at L4-L5 with associated vacuum phenomenon. Mild disc space narrowing is seen at the remaining lumbar levels. There is multilevel degenerative endplate sclerosis. There is no CT evidence of large disc herniation or high-grade central canal stenosis throughout the lumbar spine. Facet arthropathy is noted in the lower lumbar region. The visualized sacrum and bony pelvis appear intact. There is fatty atrophy of the paraspinous musculature. There is diverticulosis of the visualized sigmoid colon. The abdominal aorta is normal in course and caliber noting advanced atherosclerotic calcification. IMPRESSION: 1. There is an acute inferior endplate compression fracture of T12. There is only minimal loss of height. No retropulsion of fragments is seen. 2. Chronic lumbar compression deformities as above status post vertebroplasty at L1. These are unchanged from previous. 3. Osteopenia and spondylotic change as above. ACT 112: Negative or not required by law. Electronically signed by: Baldomero Reeder M.D. 10/19/2023 4:41 PM Abdomen/Pelvis CT 10/19/23 14:09 CT OF THE ABDOMEN AND PELVIS WITH CONTRAST CLINICAL HISTORY: Abdominal pain, UTI symptoms. COMPARISON STUDY: CT of the abdomen and pelvis March 08, 2023. Lumbar spine CT October 10, 2023. Lumbar spine MRI September 19, 2023. TECHNIQUE: Following IV administration of 92 mL of Optiray, axial images of the abdomen and pelvis were obtained from the lung bases to the proximal femurs. Images were reviewed in the axial, sagittal, and coronal planes. IV contrast was administered without complication. Automated exposure control was utilized for the study. A dose lowering technique was utilized adhering to the principles of ALARA. CT DOSE: 1709.09 mGy.cm FINDINGS: Lung bases are unremarkable. No pneumatosis, free air or portal venous gas is present. There is hepatic steatosis. There is no biliary ductal dilatation status post cholecystectomy. Mild splenomegaly is unchanged. Adrenal glands, kidneys and pancreas are unremarkable. Is no hydronephrosis. There is no evidence for a bowel obstruction. Mild presacral/retroperitoneal stranding is similar to prior exam. There is colonic diverticulosis without convincing evidence for acute diverticulitis. A sigmoid anastomosis is noted. The appendix is not visualized. Old L2, L3 and L4 compression fractures are unchanged. The appearance of the L1 kyphoplasty is unchanged since prior lumbar spine CT. There is an acute appearing mild T12 compression fracture with concavity of the superior and inferior endplates with 20% loss of vertebral body height centrally. Mild prevertebral edema is noted. No additional acute fractures are identified. IMPRESSION: 1. Acute mild T12 compression fracture. No change in appearance of the L1 kyphoplasty. Old L2-L4 compression fractures. 2. No acute process within the abdomen or pelvis. No bowel wall thickening. No bowel obstruction. Colonic diverticulosis. No evidence for acute diverticulitis. Stable presacral/retroperitoneal stranding. ACT 112: Negative or not required by law. Electronically signed by: Kennedy Schaefer M.D. 10/19/2023 3:56 PM Discharge Plan Visit Data Chief Complaint: Referred by Doctor Stated Complaint: REFERRED BY DOC ED Provider: aBo Larson Discharge Problem: Compression fracture of T12 vertebra Discharge Instructions Interventions: ED Discharge Assessment Last Done: 10/19/23 20:46
[2023-10-19] MEDS: MoRPHine SULFATE 4 MG/ML 1 ML CARP\\VIAL IV STA ×2 (16:28→17:44)
--- NOTE | 2023-10-19 16:43 | CT Scan Report ---
CT SCAN OF THE LUMBAR SPINE WITH IV CONTRAST CLINICAL HISTORY: Low back pain. Recent surgery. COMPARISON STUDY: CT scan of the lumbar spine dated 10/10/2023 and 02/07/2022. TECHNIQUE: CT scan of the lumbar spine is performed from the lower thoracic spine to the sacrum follo wing the administration of 92 cc of Optiray 320. Images are reviewed in axial, sagittal, and coronal planes. IV contrast was administered without complication. A dose lowering technique was utilized adh ering to the principles of ALARA. FINDINGS: The skeletal structures are osteopenic. Again seen is a superior endplate compression fract ure of L1 status post vertebroplasty. There is minimal retropulsion of fragments. This is unchanged f rom 10/10/2023. Chronic superior endplate compression deformities of L2 and L3 are also unchanged. No a cute fracture is identified involving the lumbar spine. There is a mild acute inferior endplate compr ession fracture of T12. This is new from previous. Mild paravertebral edema is noted. No retropulsion of fragments is seen. There is no malalignment. Vertebral body height is maintained at L4 and L5. Al ignment is preserved. The transverse and spinous processes appear intact. There is no spondylolysis. No lytic or blastic lesion is seen. Anterior and lateral marginal osteophytes are seen throughout. Th ere is moderate disc space narrowing at L4-L5 with associated vacuum phenomenon. Mild disc space narr owing is seen at the remaining lumbar levels. There is multilevel degenerative endplate sclerosis. Th ere is no CT evidence of large disc herniation or high-grade central canal stenosis throughout the hiwot mbar spine. Facet arthropathy is noted in the lower lumbar region. The visualized sacrum and bony pel vis appear intact. There is fatty atrophy of the paraspinous musculature. There is diverticulosis of the visualized sigmoid colon. The abdominal aorta is normal in course and caliber noting advanced ath erosclerotic calcification. IMPRESSION: 1. There is an acute inferior endplate compression fracture of T12. There is only minimal loss of hei ght. No retropulsion of fragments is seen. 2. Chronic lumbar compression deformities as above status post vertebroplasty at L1. These are unchan ged from previous. 3. Osteopenia and spondylotic change as above. ACT 112: Negative or not required by law. Electronically signed by: Baldomero Reeder M.D. 10/19/2023 4:41 PM
[2023-10-19] MEDS: ONDANSETRON INJ 2 MG/ML 2 ML VIAL IV STA (17:20)
--- NOTE | 2023-10-19 19:00 | History & Physical Report ---
Date of Service October 19, 2023 Assessment & Plan (1) T12 compression fracture: Plan: -Admit to med/tele -Currently stable and non-toxic appearing -Patient was sent to the ED from her PCP's office for worsening low back pain and inability to complete her ADL's -Underwent 1 kyphoplasty of L1 vertebral body with Dr. Mixon on 09/25/23, her chronic back pain had been well-controlled -Had acute worsening over back pain approximately one week ago -Found to have an acute inferior endplate compression fracture of T12 on CT of the lumbar spine w/con today -Patient will need pain control and evaluation by PT/OT for rehab placement -No red flag symptoms -Will start the following: >Scheduled tylenol >Heat >TID Flexeril >PRN morphine for severe pain >Intranasal Calcitonin for vertebral pain -Will order Orthotics consult for TLSO brace -Will obtain Vit D level on am labs -Patient should eventually be switched to a bisphosphonate when her acute pain is improved -BL SCD's for DVT PPX with her thrombocytopenia -HH diet -AM CBC, bmp, mag (2) Ambulatory dysfunction: Plan: -Due to acute pain and muscle spasms from T12 compression fracture -No red flag symptoms -PT/OT consults -Rest of care per T12 compression fracture plan (3) UTI (urinary tract infection): Plan: -Patient was diagnosed with a UTI at [facility] on 10/16, we do not have the culture results at this time -She was prescribed Macrobid on 10/16, however, she has previously grown Klebsiella resistant to Macrobid -Will start the patient on Ceftriaxone tonight, we can consider this day 1 of treatment -Will try to obtain repeat UA and urine cultures tonight -Monitor blood cultures obtained in the ED (4) Depression: Plan: -Continue lexapro, xanax (5) GERD (gastroesophageal reflux disease): Plan: -Continue PPI (6) Thrombocytopenia: Plan: -Chronic -Platelets at 56K today -No signs of bleeding -Monitor daily CBC Plan The patient was discussed with Dr. Ramsay at the time of the admission History of Present Illness Chief Complaint: Back pain, need for placement Primary Care Provider: Surinder Hope III, SANNA Jonelle is a 68 year old female with a PMH significant for Anxiety, GERD, and anxiety who presented to the [facility] ED from her PCP's office due to ongoing back pain, ambulatory dysfunction, and need for placement. See PCP's note from today for summary of her recent hospitalizations and procedures at [facility]. On arrival to the ED today she was noted to be hypertensive at 185/100 but otherwise stable. Labs were unremarkable. Chest xray was negative for acute findings. Ct of the lumbar spine was read as "1. There is an acute inferior endplate compression fracture of T12. There is only minimal loss of height. No retropulsion of fragments is seen. 2. Chronic lumbar compression deformities as above status post vertebroplasty at L1. These are unchanged from previous. 3. Osteopenia and spondylotic change as above.". CT of the abd/pelvis w/IV con was read as "1. Acute mild T12 compression fracture. No change in appearance of the L1 kyphoplasty. Old L2-L4 compression fractures. 2. No acute process within the abdomen or pelvis. No bowel wall thickening. No bowel obstruction. Colonic diverticulosis. No evidence for acute diverticulitis. Stable presacral/retroperitoneal stranding.". Prior to admission the patient was given 1gm IV tylenol, 500 mL NSS, 2 doses of 4 mg IV morphine, and 4 mg IV zofran. At the time of the exam the patient was lying in bed in no acute distress. She states that she has been unable to complete her ADL's or function normally since being discharged from [facility]. The majority of her low back pain is due to muscle spasms at this time. She states that Dr. Hope prescribed her a new antibiotic today as she was prescribed Macrobid for her UTI diagnosed at [facility] on 10/16 but this would not cover her previous UTI's. She denies recent fever, chills, chest pain, cough, SOB, abd pain, nausea, vomiting, diarrhea, diarrhea, LE swelling, and recent falls. She is a full code and her is her POA. When asked, she denies recent saddle anesthesia, loss of bowel or bladder function, LE weakness. Please refer to Dr. Ramsay's attestation for any changes to the treatment plan Allergies Allergy/AdvReac Type Severity Reaction Status Date / Time NSAIDS (Non-Steroidal Allergy Unknown THROMBOCYTO Verified 10/19/23 11:49 Anti-Inflamma PENIA sumatriptan AdvReac Intermediate PANIC Verified 10/19/23 11:49 ATTACKS ketorolac AdvReac Mild SKIN Verified 10/19/23 11:49 IRRITATION Home Medications Medication Instructions Recorded Confirmed Type alprazolam 0.5 mg tablet 0.5 mg PO QID PRN Anxiety 01/23/22 10/19/23 History escitalopram oxalate 10 mg tablet 10 mg PO QAM 01/23/22 10/19/23 History escitalopram oxalate 20 mg tablet 20 mg PO QAM 01/23/22 10/19/23 History omeprazole 20 mg capsule,delayed 20 mg PO QAM #90 caps 01/24/23 10/19/23 Rx release fenofibrate nanocrystallized 145 145 mg PO QAM 03/21/23 10/19/23 History mg tablet acetaminophen 325 mg tablet 650 mg (2 x 325 mg) PO Q4H PRN 09/26/23 10/19/23 Rx pain #30 tabs ondansetron 4 mg disintegrating 4 mg PO Q8H PRN nausea and 10/13/23 10/19/23 Rx tablet vomiting #7 tabs ciprofloxacin HCl 500 mg tablet 500 mg PO Q12H #20 tabs 10/19/23 10/19/23 Rx hydrocodone 5 mg-acetaminophen 325 1 tab PO UD 10/19/23 10/19/23 History mg tablet oxycodone 5 mg tablet 5 mg PO UD 10/19/23 10/19/23 History tizanidine 4 mg capsule 4 mg PO TID PRN muscle spasticity 10/19/23 10/19/23 Rx #60 caps 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/23/22) Anxiety GERD (gastroesophageal reflux disease) Thrombocytopenia Compression fracture Post traumatic stress disorder (PTSD) Depression Surgical History H/O ventral hernia repair H/O bilateral breast reduction surgery History of esophagogastroduodenoscopy (EGD) History of colonoscopy History of back surgery History of appendectomy History of cholecystectomy H/O: hysterectomy H/O tooth extraction History of bowel resection (~2014) Family History Father Colorectal cancer Brother Colorectal cancer Denies family history of Ovarian cancer Prostate cancer Myocardial infarction Breast cancer Social History Smoking Status: Former smoker Tobacco Type: Cigarettes Age Started Using Tobacco: 22; Cigarettes Per Day: 2 a day; Second Hand Exposure: Yes; Do You Dip or Chew Tobacco: No; Hx Alcohol Use: No Hx Substance Use: No Preferred Language: American Communication Ability: Effective Visual Impairment: No Limitations Hearing Ability: Normal Rehabilitation Construction Specialist Required: No Beliefs That Will Affect Care: None marital status: Current Living Situation: Spouse current occupational status: retired How many Children do You have: 4 Feels Safe at Home: Yes Childhood Exposure to Second-Hand Smoke: Yes Diet Comment: NO RED MEAT Dental Care, Regularly: No Physical Activity Frequency: Does not Exercise Seatbelt Use: always Sunscreen Use: No Assistive Devices: Denture - Upper, Glasses and Walker Physical Exam Physical Exam: Physical Exam: General: In no acute distress, stated age, well-nourished, non-toxic appearing HEENT: Normocephalic, atraumatic, no scleral icterus, pupils around round, symmetrical, and reactive to light, moist mucus membranes, trachea midline, no thyromegaly Chest/Pulm: No respiratory distress, symmetrical chest expansion, clear breath sounds throughout Cardiac: RRR, no murmurs noted Abdomen: Negative for ascites and bruising, normoactive bowel sounds, soft, non-tender to palpation throughout Musculoskeletal: Patient with significant muscle spasms and pain in the low back and BL LE's with minimal movement, symmetrical sensation and strength in the BL LE's Extremities: Radial, dorsalis pedis, and posterior tibial pulses are intact and symmetrical, no edema noted in the BL LE's Skin: Warm, dry, no rashes , lesions, or scars noted Neuro: Alert and oriented to person, place, month, year, and president, symmetrical and intact strength, sensation, and distal reflexes in the BL LE's Psych: No acute distress, calm and cooperative during the exam Results & Data Results & Data Vital Signs (Past 12 Hours) Vital Signs Temp Pulse Pulse Resp BP BP Pulse Ox 10/19/23 18:40 62 13 93 10/19/23 18:30 204/119 H 10/19/23 18:30 64 15 91 10/19/23 18:20 64 16 92 10/19/23 18:10 61 11 L 92 10/19/23 18:00 186/93 H 10/19/23 18:00 61 17 90 10/19/23 17:50 63 17 93 10/19/23 17:40 60 17 93 10/19/23 17:30 64 19 92 10/19/23 17:30 187/106 H 10/19/23 17:20 60 22 94 10/19/23 17:10 63 20 93 10/19/23 17:00 194/105 H 10/19/23 17:00 63 17 92 10/19/23 17:00 58 L 20 187/106 H 95 10/19/23 16:50 63 17 10/19/23 16:40 59 L 16 94 10/19/23 16:32 185/100 H 10/19/23 16:32 66 14 92 10/19/23 16:30 60 18 96 10/19/23 16:21 56 L 18 96 10/19/23 16:20 60 10/19/23 15:51 63 23 95 10/19/23 15:50 70 23 177/107 H 95 10/19/23 14:04 36.6 C 73 19 158/93 H 95 O2 Del Method 10/19/23 18:40 10/19/23 18:30 10/19/23 18:30 10/19/23 18:20 10/19/23 18:10 10/19/23 18:00 10/19/23 18:00 10/19/23 17:50 10/19/23 17:40 10/19/23 17:30 10/19/23 17:30 10/19/23 17:20 10/19/23 17:10 10/19/23 17:00 10/19/23 17:00 10/19/23 17:00 Room Air 10/19/23 16:50 10/19/23 16:40 10/19/23 16:32 10/19/23 16:32 10/19/23 16:30 10/19/23 16:21 10/19/23 16:20 10/19/23 15:51 Room Air 04/18/24 15:50 Room Air 10/19/23 14:04 Room Air Laboratory Results Abnormal lab results 10/19/23 Range/Units 14:26 Hgb 16.4 H (12.0-16.0) g/dl Hct 48.9 H (37.0-47.0) % Plt Count 56 L (130-400) K/uL MPV 13.2 H (9.4-12.4) fL Neut # (Auto) 6.94 H (1.40-6.50) K/uL PT 12.2 H (9.0-12.0) Seconds Sodium 133 L (136-145) mmol/L Glucose 101 H (70-99(Fasting)) mg/dl Alkaline Phosphatase 108 H (34-104) U/L Diagnostic Findings Chest X-Ray 10/19/23 14:08 XR chest 1V not portable HISTORY: 68 years-old Female Abdominal and back pain acute chest and abdominal pain COMPARISON: Chest CT 09/17/2023 TECHNIQUE: AP view of the chest FINDINGS: Cardiac silhouette is mildly enlarged. Atherosclerosis of the aorta. No pneumothorax, pleural effusion, airspace consolidation or pulmonary edema. Degenerative changes of the shoulders and spine. IMPRESSION: No acute process. ACT 112: Negative or not required by law. The above report was generated using voice recognition software. It may contain grammatical, syntax or spelling errors. Electronically signed by: Ruben Sanders M.D. 10/19/2023 2:[address] 10/19/23 14:08 CT SCAN OF THE LUMBAR SPINE WITH IV CONTRAST CLINICAL HISTORY: Low back pain. Recent surgery. COMPARISON STUDY: CT scan of the lumbar spine dated 10/10/2023 and 02/07/2022. TECHNIQUE: CT scan of the lumbar spine is performed from the lower thoracic spine to the sacrum following the administration of 92 cc of Optiray 320. Images are reviewed in axial, sagittal, and coronal planes. IV contrast was administered without complication. A dose lowering technique was utilized adhering to the principles of ALARA. FINDINGS: The skeletal structures are osteopenic. Again seen is a superior endplate compression fracture of L1 status post vertebroplasty. There is minimal retropulsion of fragments. This is unchanged from 10/10/2023. Chronic superior endplate compression deformities of L2 and L3 are also unchanged. No acute fracture is identified involving the lumbar spine. There is a mild acute inferior endplate compression fracture of T12. This is new from previous. Mild paravertebral edema is noted. No retropulsion of fragments is seen. There is no malalignment. Vertebral body height is maintained at L4 and L5. Alignment is preserved. The transverse and spinous processes appear intact. There is no spondylolysis. No lytic or blastic lesion is seen. Anterior and lateral marginal osteophytes are seen throughout. There is moderate disc space narrowing at L4-L5 with associated vacuum phenomenon. Mild disc space narrowing is seen at the remaining lumbar levels. There is multilevel degenerative endplate sclerosis. There is no CT evidence of large disc herniation or high-grade central canal stenosis throughout the lumbar spine. Facet arthropathy is noted in the lower lumbar region. The visualized sacrum and bony pelvis appear intact. There is fatty atrophy of the paraspinous musculature. There is diverticulosis of the visualized sigmoid colon. The abdominal aorta is normal in course and caliber noting advanced atherosclerotic calcification. IMPRESSION: 1. There is an acute inferior endplate compression fracture of T12. There is only minimal loss of height. No retropulsion of fragments is seen. 2. Chronic lumbar compression deformities as above status post vertebroplasty at L1. These are unchanged from previous. 3. Osteopenia and spondylotic change as above. ACT 112: Negative or not required by law. Electronically signed by: Baldomero Reeder M.D. 10/19/2023 4:41 PM Abdomen/Pelvis CT 10/19/23 14:09 CT OF THE ABDOMEN AND PELVIS WITH CONTRAST CLINICAL HISTORY: Abdominal pain, UTI symptoms. COMPARISON STUDY: CT of the abdomen and pelvis March 08, 2023. Lumbar spine CT October 10, 2023. Lumbar spine MRI September 19, 2023. TECHNIQUE: Following IV administration of 92 mL of Optiray, axial images of the abdomen and pelvis were obtained from the lung bases to the proximal femurs. Images were reviewed in the axial, sagittal, and coronal planes. IV contrast was administered without complication. Automated exposure control was utilized for the study. A dose lowering technique was utilized adhering to the principles of ALARA. CT DOSE: 1709.09 mGy.cm FINDINGS: Lung bases are unremarkable. No pneumatosis, free air or portal venous gas is present. There is hepatic steatosis. There is no biliary ductal dilatation status post cholecystectomy. Mild splenomegaly is unchanged. Adrenal glands, kidneys and pancreas are unremarkable. Is no hydronephrosis. There is no evidence for a bowel obstruction. Mild presacral/retroperitoneal stranding is similar to prior exam. There is colonic diverticulosis without convincing evidence for acute diverticulitis. A sigmoid anastomosis is noted. The appendix is not visualized. Old L2, L3 and L4 compression fractures are unchanged. The appearance of the L1 kyphoplasty is unchanged since prior lumbar spine CT. There is an acute appearing mild T12 compression fracture with concavity of the superior and inferior endplates with 20% loss of vertebral body height centrally. Mild prevertebral edema is noted. No additional acute fractures are identified. IMPRESSION: 1. Acute mild T12 compression fracture. No change in appearance of the L1 kyphoplasty. Old L2-L4 compression fractures. 2. No acute process within the abdomen or pelvis. No bowel wall thickening. No bowel obstruction. Colonic diverticulosis. No evidence for acute diverticulitis. Stable presacral/retroperitoneal stranding. ACT 112: Negative or not required by law. Electronically signed by: Kennedy cShaefer M.D. 10/19/2023 3:56 PM ECG Additional Comments: Normal sinus rhythm Cannot rule out Anterior infarct , age undetermined Abnormal ECG When compared with ECG of 25-SEP-2023 14:08, No significant change was found Code Status & VTE Plan Code Status Full code VTE Prophylaxis Plan VTE Prophylaxis will be ordered: Yes Supervising Physician Co-Signing Physician Notes I personally saw and examined the patient. I verified all simpson points and agree with Bao Anderson PA-C with the following exceptions and/or additions: 68 year old female presents to the ER with back pain radiating to groin. Unable to complete ADLs at home and does not feel safe to return home at this time. O/E HS RRR, no murmurs, Chest CTAB, no CVA tenderness, central lumbar pain on palpation, LE b/l 5/5 power, no numbness A/P T12 compression osteoporotic fracture with radicular pain - main pain in central back therefore will defer gabapentin at this time. Utlize morphine overnight with Flexeril for muscle spasm. She would like to avoid further. She reports severe osteoporosis but no treatment within the last year (prior treatment through [facility]). Calcitonin nasal spray here but recommend following up with [facility] on discharge for ongoing osteoporosis treatment. Vitamin D level with AM labs. Consider ortho spine consult if she is not improving with conservative measures as she did well with kyphoplasty previously. PG Care Time/CCT Total # of Minutes Spent Total Time Spent with Patient: Total time spent is greater than 50% in coordination of care (as documented) at patient's floor/unit and/or counseling patient: Coding [place] [address] INT INP/OBS CARE 3/75MIN Patient Type Established Medical Decision Making High Complexity Diagnoses T12 compression fracture S22.080A Ambulatory dysfunction R26.2 UTI (urinary tract infection) N39.0 Depression F32.9 GERD (gastroesophageal reflux disease) K21.9 Thrombocytopenia D69.6
[2023-10-19] MEDS: PLASMA-LYTE A 1,000 ML IV SCH (20:09)
[2023-10-19] MEDS: CYCLOBENZAPRINE HCL 10 MG TAB PO STA (20:09)
[2023-10-19] MEDS: ACETAMINOPHEN 325 MG TAB PO SCH (20:09)
[2023-10-19] MEDS ORDERED: ALPRAZolam 0.5 MG TABLET PO PRN (20:45)
[2023-10-19] MEDS ORDERED: ENOXAPARIN INJ 40 MG/0.4 ML SYR SQ SCH (21:00)
[2023-10-19] MEDS: cefTRIAXone SODIUM 2,000 MG in DEXTROSE 5 % MINI-B 50 ML IV SCH (21:05)
[2023-10-19] MEDS: CALCITONIN SALMON NA 200 IU/AC 3.7 ML BTL SCH (21:12)
[2023-10-19] MEDS: MoRPHine SULFATE 4 MG/ML 1 ML CARP\\VIAL IV PRN (22:02)
[2023-10-20] MEDS: ONDANSETRON INJ 2 MG/ML 2 ML VIAL IV STA (02:40)
[2023-10-20 05:23] LABS: BUN Creatinine Ratio 12.3 (10-20); Calcium 8.9 mg/dl (8.6-10.3); Est GFR (Non-African American) 96.6 ml/min; Magnesium 1.7 mg/dl (1.7-2.4); Potassium 3.4 mmol/L (3.5-5.1)
[2023-10-20 05:38] LABS: INR 1.2 (0.9-1.1); Prothrombin Time 12.7 Seconds (9.0-12.0)
[2023-10-20 05:51] LABS: Basophils # (auto) 0.05 K/uL (0.00-0.20); Basophils % (auto) 0.8 %; Eosinophils % (auto) 3.1 %; Hematocrit (blood only) 41.9 % (37.0-47.0); Hemoglobin 13.7 g/dl (12.0-16.0); Immature Granulocytes # (auto) 0.02 K/uL (0.01-0.20); Immature Granulocytes % (auto) 0.3 %; Lymphocytes % (auto) 21.7 %; Mean Corpuscular Hemoglobin 30.2 pg (25.0-34.0); Mean Corpuscular Hgb Conc 32.7 g/dL (32.0-36.0); Mean Corpuscular Volume 92.3 fL (80.0-100.0); Mean Platelet Volume 14.1 fL (9.4-12.4); Monocytes # (auto) 0.44 K/uL (0.11-0.59); Monocytes % (auto) 6.8 %; Neutrophils # (auto) 4.35 K/uL (1.40-6.50); Neutrophils % (auto) 67.3 %; Platelet Count 41 K/uL (130-400); RDW Standard Deviation 43.8 fL (36.4-46.3); Red Blood Count 4.54 M/uL (4.20-5.40); Tear Drop Cells 1+; Toxic Vacuolation 1+; White Blood Count 6.46 K/ul (4.8-10.8)
[2023-10-20] MEDS: PANTOprazole 40 MG TAB PO SCH (08:36)
[2023-10-20] MEDS: ESCITALOPRAM OXALATE 10 MG TAB PO SCH (08:37)
[2023-10-20] MEDS: FENOFIBRATE NANOCRYSTALLIZED 145 MG TABLET PO SCH (08:37)
[2023-10-20] MEDS: ESCITALOPRAM OXALATE 20 MG TAB PO SCH (08:37)
--- NOTE | 2023-10-20 08:57 | Hospitalist Progress Note ---
Date of Service October 20, 2023 Assessment & Plan (1) T12 compression fracture: Plan: Admit to med/tele , stable and non-toxic appearing Sent to ER by PCP for worsened back pain/inability to complete ADLs at home Is s/p kyphoplasty of L1 w/ Dr Mixon on 09/24 and was dc in stable condition on oral pain control but then presented to ER on 10/09 with worsened back pain and discharged on oral pain control but then went to [facility] for ongoing pain and was diagnosed with UTI, sent home on Macrobid to complete treatment after 24hr IV abx and was not able to obtain auth for rehab and eventually denied and discharged home. Seen by PCP and sent to ER for ongoing pain control/rehab, recs for Cipro for UTI Worsened pain for past week Found to have an Acute mild T12 compression fracture. No change in appearance of the L1 kyphoplasty. Old L2-L4 compression fractures on admission CT No red flag symptoms Pain control: tylenol, heat, muscle spasm w/ flexeril prn, morphine for severe pain (added PO oxycodone 5-10mg for oral option/longer pain control), nasal calcitonin Antiemetics added prn given nausea w/ morphine but tolerating diet, small liquid BM this morning. Stool PCR/cdiff added given abx use. Hx diverticulitis but does not feel similar and no evidence for such on CTAP on admission Ceftriaxone continued for UTI coverage, will see about records from formerly [facility] -- she notes she was told she didn't have UTI, but did report having ring w/ prior procedure. Will continue for now but likely discontinue Vitamin D 17.3, ergocalciferol ordered weekly. Should eventually be switched to bisphosphonate when acute pain improved, had prior been following [facility] consulted for TLSO brace PT/OT consults, eventual need for rehab May need orthopedic spine consult pending response to medical management DVT proph: SCDs, chemoproph deferred w/ her thrombocytopenia [facility]itor labs on repeat (2) Ambulatory dysfunction: Plan: Due to acute pain and muscle spasms from T12 compression fracture , no loss of bowel/bladder function at present pain control, therapy consults as above monitor repeat UA/cx, abx as above (3) UTI (urinary tract infection): Plan: Patient was diagnosed with a UTI at [facility] on 10/16, we do not have the culture results at this time She was prescribed Macrobid on 10/16, however, she has previously grown Klebsiella resistant to Macrobid Started Ceftriaxone on admission, does not appear had true UTI but will monitor repeat UA/cx and consider discontinuing. Stool for PCR as above F/u cxs monitor UOP (4) Depression: Plan: Continue lexapro, xanax support provided (5) GERD (gastroesophageal reflux disease): Plan: Continue PPI , mag wnl (6) Thrombocytopenia: Plan: Chronic , plt 56 on admit, currently 41. no bleeding reported avoid ASA/NSAIDs as long as plt <50k cbc in AM and monitor for any bleeding Plan continued inpatient stay, await PT/OT consults and CM to follow for rehab placement given patient unable to complete ADLs independently at this time and prior was not using any assistive device if ongoing pain despite medical therapy may need to consult ortho spine again for acute endplate fx Admission and Anticipated Discharge Date Admission Date: October 19, 2023 Supervising Physician Co-Signing Physician Notes The patient was not seen by me. The chart was reviewed. Case discussed with OSWALDO Santana. Agree with assessment and plan Subjective Patient evaluated this morning in C6, resting in bed, just got medicated with morphine and pain controlled. Eating better, had reported poor PO intake over the past several days due to pain. Discussed prior urine cx, if she knew results and she reports she was told she had UTI then didn't have one but was sent on abx. Did have fole w/ her kyphoplasty. Moved bowels a little this morning, liquid. Will check stool studies given liquid diarrhea/abx use. Does have diverticulitis but denies feeling similar with her lower abdominal tenderness/cramping. LE strength testing ok, difficulty with movements but has been moving around better. Needing rehab, PT/OT consults ordered and pending. Denies fever/chills, CP/SOb but does have occasional "chest discomfort" which she notes is her left shoulder , when raising above her arm and did note traumatic dislocation of this shoulder in the past and likely has nerve damage. Questions/concerns addressed at this time. Physical Exam Physical Exam: General 68yo female laying in bed, NAD, just medicated for pain Head atraumatic, normocephalic, mm slightly dry, trachea midline Resp: even/unlabored, diminished in the bases CV: RRR, no significant m/r/g, trace pedal edema, pulses palpable, calves nontender GI: +BS throughout, +obese, soft, slight tenderness lower abdominal walsh without rigidity/guarding MSK/Neuro: central back pain, b/l LE strength testing intact, worsened pain w/ sitting up pain to her L shoulder when raising above level of shoulders (reports hasn't been able to wash her hair in some time) Psych: AOx3, cooperative with exam Results & Data Results & Data Vital Signs (Past 12 Hours) Vital Signs Pulse Pulse Resp BP BP Pulse Ox Pulse Ox 10/20/23 08:11 62 10/20/23 05:01 65 15 154/82 H 95 10/20/23 04:45 66 18 125/78 94 10/20/23 04:30 57 L 14 93 10/20/23 04:00 56 L 15 10/20/23 04:00 125/78 10/20/23 03:30 58 L 14 91 10/20/23 03:00 59 L 18 91 10/20/23 03:00 137/78 10/20/23 02:30 59 L 15 93 10/20/23 02:06 60 25 H 96 10/20/23 02:06 146/72 H 10/20/23 02:04 60 13 10/20/23 01:30 62 12 91 10/20/23 01:00 59 L 14 91 10/20/23 00:30 60 14 92 10/20/23 00:00 164/102 H 10/20/23 00:00 61 13 91 10/19/23 23:30 60 14 92 10/19/23 23:00 170/111 H 10/19/23 23:00 60 12 90 10/19/23 23:00 61 17 170/111 H 91 10/19/23 22:30 59 L 16 93 10/19/23 22:28 59 L 22 91 10/19/23 22:26 60 20 178/107 H 90 10/19/23 22:26 92 10/19/23 22:00 63 18 91 10/19/23 22:00 178/107 H 10/19/23 21:30 66 18 92 10/19/23 21:00 61 16 90 10/19/23 21:00 173/105 H O2 Del Method O2 Del Method 10/20/23 08:11 10/20/23 05:01 Room Air 10/20/23 04:45 Room Air 10/20/23 04:30 Room Air 10/20/23 04:00 10/20/23 04:00 10/20/23 03:30 Room Air 10/20/23 03:00 Room Air 10/20/23 03:00 10/20/23 02:30 Room Air 10/20/23 02:06 Room Air 10/20/23 02:06 10/20/23 02:04 10/20/23 01:30 Room Air 10/20/23 01:00 Room Air 10/20/23 00:30 10/20/23 00:00 10/20/23 00:00 10/19/23 23:30 10/19/23 23:00 10/19/23 23:00 10/19/23 23:00 Room Air 10/19/23 22:30 10/19/23 22:28 Room Air 10/19/23 22:26 Room Air 10/19/23 22:26 Room Air 10/19/23 22:00 10/19/23 22:00 10/19/23 21:30 10/19/23 21:00 10/19/23 21:00 Laboratory Results 10/20/23 10/19/23 Range/Units 04:28 14:26 WBC 6.46 9.45 (4.8-10.8) K/ul RBC 4.54 5.39 (4.20-5.40) M/uL Hgb 13.7 16.4 H (12.0-16.0) g/dl Hct 41.9 48.9 H (37.0-47.0) % MCV 92.3 90.7 (80.0-100.0) fL MCH 30.2 30.4 (25.0-34.0) pg MCHC 32.7 33.5 (32.0-36.0) g/dL RDW Std Deviation 43.8 42.7 (36.4-46.3) fL RDW Coeff of Deanne 13.0 12.9 (11.5-14.5) % Plt Count 41 L 56 L (130-400) K/uL MPV 14.1 H 13.2 H (9.4-12.4) fL Immature Gran % (Auto) 0.3 0.4 % Neut % (Auto) 67.3 73.5 % Lymph % (Auto) 21.7 18.8 % Pershing % (Auto) 6.8 5.2 % Eos % (Auto) 3.1 1.7 % Baso % (Auto) 0.8 0.4 % Neut # (Auto) 4.35 6.94 H (1.40-6.50) K/uL Lymph # (Auto) 1.40 1.78 (1.20-3.40) K/uL Pershing # (Auto) 0.44 0.49 (0.11-0.59) K/uL Eos # (Auto) 0.20 0.16 (0.00-0.50) K/uL Baso # (Auto) 0.05 0.04 (0.00-0.20) K/uL Immature Gran # (Auto) 0.02 0.04 (0.01-0.20) K/uL Toxic Vacuolation 1+ Tear Drop Cells 1+ PT 12.7 H 12.2 H (9.0-12.0) Seconds INR 1.2 H 1.1 (0.9-1.1) APTT 31 (21-31) Seconds PTT Ratio 1.1 Sodium 134 L 133 L (136-145) mmol/L Potassium 3.4 L 3.7 (3.5-5.1) mmol/L Chloride 100 98 (98-107) mmol/L Carbon Dioxide 26 24 (21-32) mmol/L Anion Gap 8 11 (3-11) BUN 7 8 (6-23) mg/dl Creatinine 0.57 L 0.65 (0.6-1.2) mg/dl Est Cr Clr Drug Dosing 119.0 Not Reportable Est GFR ( Amer) 112.0 107.2 ml/min Est GFR (Non-Af Amer) 96.6 92.5 ml/min BUN/Creatinine Ratio 12.3 12.3 (10-20) Glucose 85 101 H (70-99(Fasting)) mg/dl Lactate 1.5 (0.4-2.0) mmol/L Calcium 8.9 10.3 (8.6-10.3) mg/dl Magnesium 1.7 1.7 (1.7-2.4) mg/dl Total Bilirubin 1.0 (0.2-1.0) mg/dl AST 36 (13-39) U/L ALT 19 (7-52) U/L Alkaline Phosphatase 108 H (34-104) U/L Troponin I High Sens 5.4 (0-14) pg/ml Total Protein 7.8 (6.0-8.3) gm/dl Albumin 4.3 (3.4-5.0) gm/dl Globulin 3.5 (2.5-4.0) gm/dl Albumin/Globulin Ratio 1.2 (0.9-2) Lipase 15 (11-82) U/L 25-OH Vitamin D Total 17.3 L (30-100) ng/ml Diagnostic Findings Chest X-Ray 10/19/23 14:08 XR chest 1V not portable HISTORY: 68 years-old Female Abdominal and back pain acute chest and abdominal pain COMPARISON: Chest CT 09/17/2023 TECHNIQUE: AP view of the chest FINDINGS: Cardiac silhouette is mildly enlarged. Atherosclerosis of the aorta. No pneumothorax, pleural effusion, airspace consolidation or pulmonary edema. Degenerative changes of the shoulders and spine. IMPRESSION: No acute process. ACT 112: Negative or not required by law. The above report was generated using voice recognition software. It may contain grammatical, syntax or spelling errors. Electronically signed by: Ruben Sanders M.D. 10/19/2023 2:[address] 10/19/23 14:08 CT SCAN OF THE LUMBAR SPINE WITH IV CONTRAST CLINICAL HISTORY: Low back pain. Recent surgery. COMPARISON STUDY: CT scan of the lumbar spine dated 10/10/2023 and 02/07/2022. TECHNIQUE: CT scan of the lumbar spine is performed from the lower thoracic spine to the sacrum following the administration of 92 cc of Optiray 320. Images are reviewed in axial, sagittal, and coronal planes. IV contrast was administered without complication. A dose lowering technique was utilized adhering to the principles of ALARA. FINDINGS: The skeletal structures are osteopenic. Again seen is a superior endplate compression fracture of L1 status post vertebroplasty. There is minimal retropulsion of fragments. This is unchanged from 10/10/2023. Chronic superior endplate compression deformities of L2 and L3 are also unchanged. No acute fracture is identified involving the lumbar spine. There is a mild acute inferior endplate compression fracture of T12. This is new from previous. Mild paravertebral edema is noted. No retropulsion of fragments is seen. There is no malalignment. Vertebral body height is maintained at L4 and L5. Alignment is preserved. The transverse and spinous processes appear intact. There is no spondylolysis. No lytic or blastic lesion is seen. Anterior and lateral marginal osteophytes are seen throughout. There is moderate disc space narrowing at L4-L5 with associated vacuum phenomenon. Mild disc space narrowing is seen at the remaining lumbar levels. There is multilevel degenerative endplate sclerosis. There is no CT evidence of large disc herniation or high-grade central canal st enosis throughout the lumbar spine. Facet arthropathy is noted in the lower lumbar region. The visualized sacrum and bony pelvis appear intact. There is fatty atrophy of the paraspinous musculature. There is diverticulosis of the visualized sigmoid colon. The abdominal aorta is normal in course and caliber noting advanced atherosclerotic calcification. IMPRESSION: 1. There is an acute inferior endplate compression fracture of T12. There is only minimal loss of height. No retropulsion of fragments is seen. 2. Chronic lumbar compression deformities as above status post vertebroplasty at L1. These are unchanged from previous. 3. Osteopenia and spondylotic change as above. ACT 112: Negative or not required by law. Electronically signed by: Baldomero Reeder M.D. 10/19/2023 4:41 PM Abdomen/Pelvis CT 10/19/23 14:09 CT OF THE ABDOMEN AND PELVIS WITH CONTRAST CLINICAL HISTORY: Abdominal pain, UTI symptoms. COMPARISON STUDY: CT of the abdomen and pelvis March 08, 2023. Lumbar spine CT October 10, 2023. Lumbar spine MRI September 19, 2023. TECHNIQUE: Following IV administration of 92 mL of Optiray, axial images of the abdomen and pelvis were obtained from the lung bases to the proximal femurs. Images were reviewed in the axial, sagittal, and coronal planes. IV contrast was administered without complication. Automated exposure control was utilized for the study. A dose lowering technique was utilized adhering to the principles of ALARA. CT DOSE: 1709.09 mGy.cm FINDINGS: Lung bases are unremarkable. No pneumatosis, free air or portal venous gas is present. There is hepatic steatosis. There is no biliary ductal dilatation status post cholecystectomy. Mild splenomegaly is unchanged. Adrenal glands, kidneys and pancreas are unremarkable. Is no hydronephrosis. There is no evidence for a bowel obstruction. Mild presacral/retroperitoneal stranding is similar to prior exam. There is colonic diverticulosis without convincing evidence for acute diverticulitis. A sigmoid anastomosis is noted. The appendix is not visualized. Old L2, L3 and L4 compression fractures are unchanged. The appearance of the L1 kyphoplasty is unchanged since prior lumbar spine CT. There is an acute appearing mild T12 compression fracture with concavity of the superior and inferior endplates with 20% loss of vertebral body height centrally. Mild prevertebral edema is noted. No additional acute fractures are identified. IMPRESSION: 1. Acute mild T12 compression fracture. No change in appearance of the L1 kyphoplasty. Old L2-L4 compression fractures. 2. No acute process within the abdomen or pelvis. No bowel wall thickening. No bowel obstruction. Colonic diverticulosis. No evidence for acute diverticulitis. Stable presacral/retroperitoneal stranding. ACT 112: Negative or not required by law. Electronically signed by: Kennedy Schaefer M.D. 10/19/2023 3:56 PM PG Care Time/CCT Total # of Minutes Spent Total Time Spent with Patient: Total time spent is greater than 50% in coordination of care (as documented) at patient's floor/unit and/or counseling patient: Coding Level of Care Code 64947 SUB INP/OBS CARE 2/35MIN Diagnoses T12 compression fracture S22.080A Ambulatory dysfunction R26.2 UTI (urinary tract infection) N39.0 Depression F32.9 GERD (gastroesophageal reflux disease) K21.9 Thrombocytopenia D69.6
[2023-10-20] MEDS ORDERED: CYCLOBENZAPRINE HCL 5 MG TAB PO SCH (09:00)
[2023-10-20] MEDS: POTASSIUM CHLORIDE CRTAB 20 MEQ TABCR PO STA (12:16)
[2023-10-20] MEDS: ERGOCALCIFEROL 1250 MCG (50,000 UNITS) CAP PO SCH (12:16)
[2023-10-20] MEDS: ONDANSETRON INJ 2 MG/ML 2 ML VIAL IV PRN (13:53)
[2023-10-20] MEDS ORDERED: hydrALAZINE HCL 20 MG/ML VIAL IV PRN (16:47)
[2023-10-20] MEDS: oxyCODONE HCL IR 5 MG TAB (IMMEDIATE RELEASE) PO PRN (19:41)
[2023-10-20 21:27] LABS: Appearance Urine Cloudy (Clear); Bacteria Urine Automated None Seen (None Seen); Bilirubin Urine Negative (Negative); Blood Urine Negative (Negative); Cast Urine Automated 0-2 /lpf (0-2); Color Urine Dark Yellow; Glucose Urine UA Negative (Negative); Ketones Urine Trace (Negative); Leukocyte Esterase Urine Negative (Negative); Nitrite Urine Negative (Negative); Protein Urine Negative (Negative); Specific Gravity Urine 1.028 (1.000-1.030); Urobilinogen Urine Negative (Negative); WBC Urine Automated 0-5 /hpf (0-5); pH Urine 5.5 (4.5-7.5)
[2023-10-20] MEDS: CYCLOBENZAPRINE HCL 5 MG TAB PO PRN (21:42)
[2023-10-20 21:57] LABS: Mucus Urine Present (None Prsent)
[2023-10-20 22:01] LABS: Uric Acid Crystals Urine Present (None Prsent)
[2023-10-20 22:18] LABS: Adenovirus F 40/41 PCR Not Detected (NotDetected); Astrovirus PCR Not Detected (NotDetected); Campylobacter PCR Not Detected (NotDetected); Cryptosporidium PCR Not Detected (NotDetected); Cyclospora cayetanensis PCR Not Detected (NotDetected); Entamoeba histolytica PCR Not Detected (NotDetected); Enteroaggregative E.coli(EAEC) Not Detected (NotDetected); Enteropathogenic E.coli (EPEC) Not Detected (NotDetected); Enterotoxigenic E.coli (ETEC) Not Detected (NotDetected); Giardia lamblia PCR Not Detected (NotDetected); Norovirus GI/GII PCR Not Detected (NotDetected); Plesiomonas shigelloides PCR Not Detected (NotDetected); Rotavirus A PCR Not Detected (NotDetected); Salmonella PCR Not Detected (NotDetected); Sapovirus PCR Not Detected (NotDetected); Shiga-like Toxin E.coli (STEC) Not Detected (NotDetected); Shigella/Enteroinvasive E.coli Not Detected (NotDetected); Vibrio cholerae PCR Not Detected (NotDetected); Vibrio species PCR Not Detected (NotDetected); Yersinia enterocolitica PCR Not Detected (NotDetected)
[2023-10-21 05:28] LABS: Basophils # (auto) 0.03 K/uL (0.00-0.20); Basophils % (auto) 0.5 %; Eosinophils # (auto) 0.22 K/uL (0.00-0.50); Eosinophils % (auto) 3.7 %; Hematocrit (blood only) 43.1 % (37.0-47.0); Hemoglobin 14.1 g/dl (12.0-16.0); Immature Granulocytes # (auto) 0.07 K/uL (0.01-0.20); Immature Granulocytes % (auto) 1.2 %; Lymphocytes # (auto) 1.21 K/uL (1.20-3.40); Lymphocytes % (auto) 20.2 %; Mean Corpuscular Hemoglobin 30.2 pg (25.0-34.0); Mean Corpuscular Hgb Conc 32.7 g/dL (32.0-36.0); Mean Corpuscular Volume 92.3 fL (80.0-100.0); Mean Platelet Volume 14.5 fL (9.4-12.4); Monocytes # (auto) 0.46 K/uL (0.11-0.59); Monocytes % (auto) 7.7 %; Neutrophils # (auto) 4.01 K/uL (1.40-6.50); Neutrophils % (auto) 66.7 %; Platelet Count 42 K/uL (130-400); RDW Coefficient of Variation 12.9 % (11.5-14.5); RDW Standard Deviation 43.8 fL (36.4-46.3); Red Blood Count 4.67 M/uL (4.20-5.40)
[2023-10-21 05:34] LABS: BUN Creatinine Ratio 12.7 (10-20); Calcium 9.1 mg/dl (8.6-10.3); Creatinine Clr Calc Pharmacy 123.3 ml/min; Est GFR (African American) 113.3 ml/min; Est GFR (Non-African American) 97.7 ml/min; Magnesium 1.6 mg/dl (1.7-2.4); Potassium 3.5 mmol/L (3.5-5.1)
[2023-10-21 05:48] LABS: Thyroid Stimulating Hormone 1.528 uIu/ml (0.300-4.500)
--- NOTE | 2023-10-21 06:18 | Electrocardiogram Report ---
Test Reason : Blood Pressure : / mmHG Vent. Rate : 076 BPM Atrial Rate : 076 BPM P-R Int : 172 ms QRS Dur : 076 ms QT Int : 370 ms P-R-T Axes : 020 022 041 degrees QTc Int : 416 ms Normal sinus rhythm Poor R wave progression, consider anterior MA vs. lead placement vs. LVH Nonspecific ST abnormality Abnormal ECG When compared with ECG of 25-SEP-2023 14:08, No significant change was found Confirmed by Jitendra Stewart ([id number]) on 10/21/2023 6:17:36 AM Referred By: REFERRED SELF Confirmed By:Hua Stewart
--- NOTE | 2023-10-21 07:59 | Hospitalist Progress Note ---
Date of Service October 21, 2023 Assessment & Plan (1) T12 compression fracture: Plan: Admit to med/tele , stable and non-toxic appearing Sent to ER by PCP for worsened back pain/inability to complete ADLs at home Is s/p kyphoplasty of L1 w/ Dr Mixon on 09/24 and was dc in stable condition on oral pain control but then presented to ER on 10/09 with worsened back pain and discharged on oral pain control but then went to [facility] for ongoing pain and was diagnosed with UTI, sent home on Macrobid to complete treatment after 24hr IV abx and was not able to obtain auth for rehab and eventually denied and discharged home. Seen by PCP and sent to ER for ongoing pain control/rehab, recs for Cipro for UTI Worsened pain for past week Found to have an Acute mild T12 compression fracture. No change in appearance of the L1 kyphoplasty. Old L2-L4 compression fractures on admission CT No red flag symptoms Pain control: tylenol, heat, muscle spasm w/ flexeril prn, morphine for severe pain (added PO oxycodone 5-10mg for oral option/longer pain control), nasal calcitonin Antiemetics added prn given nausea w/ morphine but tolerating diet, small liquid BM this morning. Stool PCR/cdiff added given abx use. Hx diverticulitis but does not feel similar and no evidence for such on CTAP on admission Ceftriaxone continued for UTI coverage, will see about records from [facility] -- she notes she was told she didn't have UTI, but did report having ring w/ prior procedure. Will continue for now but likely discontinue Vitamin D 17.3, ergocalciferol ordered weekly. Should eventually be switched to bisphosphonate when acute pain improved, had prior been following [facility] Orthotics consulted for TLSO brace PT/OT consults, eventual need for rehab May need orthopedic spine consult pending response to medical management DVT proph: SCDs, chemoproph deferred w/ her thrombocytopenia (and + fecal occult testing) 10/20 Urine/blood cultures pending, prior cx pascual without growth. tsh wnl. plt 42. UA w/ RBC but no blood, check CK. also uric acid given crystals on UA. ?stone that passed. No prior hx stones Orthopedic spine consulted given ongoing pain/fracture Orthotics to be reconsulted for brace as was on admit but came/left as she had one but is ill fitting. Ongoing pain control Awaiting PT/OT consults and rehab Continue ceftriaxone for now +bowels moving, +fecal occult. ?diverticular vs hemorrhoidal. PPI increased to BID. No evidence for diverticulitis but had in the past admit/completed treatment Monitor labs on repeat (2) Ambulatory dysfunction: Plan: Due to acute pain and muscle spasms from T12 compression fracture , no loss of bowel/bladder function at present pain control, therapy consults as above monitor repeat UA/cx, abx as above (3) UTI (urinary tract infection): Plan: Patient was diagnosed with a UTI at [facility] on 10/16, we do not have the culture results at this time She was prescribed Macrobid on 10/16, however, she has previously grown Klebsiella resistant to Macrobid Started Ceftriaxone on admission, does not appear had true UTI but will monitor repeat UA/cx and consider discontinuing. Stool for PCR as above NEGATIVE, negative cdiff monitor final urine cx, ouput (4) Depression: Plan: Continue lexapro, xanax support provided MADE XANAX QID SCHEDULE, to assist w/ pain/spasm but also takes routinely at home (5) GERD (gastroesophageal reflux disease): Plan: Continue PPI , increased to BID for above . monitor hgb but may need to consult w/ GI Mag 1.6-- IV replacement ordered and will monitor on repeat (6) Thrombocytopenia: Plan: Chronic , plt 56 on admit, currently 41. no bleeding reported however RBC in urine (?stone passed, low Vit D), +fecal occult but has hx grade 4 hemorrhoids. ppi increased to BID avoid ASA/NSAIDs as long as plt <50k (patient reports avoiding NSAIDs at home but has had rate aleeve -- avoid) Plt 42 and monitor ?consult hematology did have hx drinking, fatty liver on imaging Plan continued inpatient stay, await PT/OT consults and CM to follow for rehab placement given patient unable to complete ADLs independently at this time and prior was not using any assistive device orthospine consulted, attempting to get new TLSO brace ongoing pain control and need for rehab at dc Admission and Anticipated Discharge Date Admission Date: October 19, 2023 Supervising Physician Co-Signing Physician Notes The patient was not seen by me. The chart was reviewed. Case discussed with OSWALDO Santana. Agree with assessment and plan Subjective Eval this morning, ongoing pain. Not much appetite due to pain. Moving bowels, darkened in color. She believes normal brown/pudding in texture but was darker. Has been first time eating in a while. Does take Xanax pretty faithfully at home qid, will make schedule, ask RN to provide dose now. No CP/SOB. She does have occasional upper GI discomfort but none at present. Nausea when pain gets bad. Lower abdominal cramping/discomfort noted. No prior known hx stones but does report she thought she was passing something in the past. Denies NSAID use, however has reported on rare occasion her has brought her an aleeve for significant/severe back pain. She notes her PCP said he would not have her on opiates at baseline --discussed short term use. Will increase PPI to BID. Not much of an appetite today. She does also have a lower back area of what initially appeared to be fluid collection/seroma (no warmth/redness) but reports she has hx lipomas and has had one removed from that region before. Brace in room but hasn't been using all the time. Can be up without but encouraged use for comfort when up with therapy. Physical Exam Physical Exam: General 68yo female laying in bed, NAD, ongoing pain w/ movement, decreased appe tite Head atraumatic, normocephalic, mm slightly dry, trachea midline Resp: even/unlabored, diminished in the bases CV: RRR, no significant m/r/g, trace pedal edema, pulses palpable, calves nontender GI: +BS throughout, +obese, soft, slight tenderness lower abdominal walsh without rigidity/guarding MSK/Neuro: central back pain, b/l LE strength testing intact, but able to sit up in bed for me today, small area to her R lower back reported lipoma prior/prior scar noted pain to her L shoulder when raising above level of shoulders (reports hasn't been able to wash her hair in some time) -- no reports of discomfort today Psych: AOx3, cooperative with exam Results & Data Results & Data Vital Signs (Past 12 Hours) Vital Signs Temp Pulse Pulse Resp BP BP Pulse Ox 10/21/23 07:24 36.6 C 64 18 148/79 H 94 10/21/23 03:04 36.5 C 67 18 110/70 96 10/20/23 22:54 36.5 C 62 18 122/71 95 10/20/23 22:52 56 L O2 Del Method 10/21/23 07:24 Room Air 10/21/23 03:04 Room Air 10/20/23 22:54 Room Air 10/20/23 22:52 Laboratory Results 10/21/23 10/21/23 10/20/23 Range/Units Unknown 04:15 Unknown WBC 6.00 (4.8-10.8) K/ul RBC 4.67 (4.20-5.40) M/uL Hgb 14.1 (12.0-16.0) g/dl Hct 43.1 (37.0-47.0) % MCV 92.3 (80.0-100.0) fL MCH 30.2 (25.0-34.0) pg MCHC 32.7 (32.0-36.0) g/dL RDW Std Deviation 43.8 (36.4-46.3) fL RDW Coeff of Deanne 12.9 (11.5-14.5) % Plt Count 42 L (130-400) K/uL MPV 14.5 H (9.4-12.4) fL Immature Gran % (Auto) 1.2 % Neut % (Auto) 66.7 % Lymph % (Auto) 20.2 % Crowley % (Auto) 7.7 % Eos % (Auto) 3.7 % Baso % (Auto) 0.5 % Neut # (Auto) 4.01 (1.40-6.50) K/uL Lymph # (Auto) 1.21 (1.20-3.40) K/uL Crowley # (Auto) 0.46 (0.11-0.59) K/uL Eos # (Auto) 0.22 (0.00-0.50) K/uL Baso # (Auto) 0.03 (0.00-0.20) K/uL Immature Gran # (Auto) 0.07 (0.01-0.20) K/uL Sodium 134 L (136-145) mmol/L Potassium 3.5 (3.5-5.1) mmol/L Chloride 100 (98-107) mmol/L Carbon Dioxide 25 (21-32) mmol/L Anion Gap 9 (3-11) BUN 7 (6-23) mg/dl Creatinine 0.55 L (0.6-1.2) mg/dl Est Cr Clr Drug Dosing 123.3 ml/min Est GFR ( Amer) 113.3 ml/min Est GFR (Non-Af Amer) 97.7 ml/min BUN/Creatinine Ratio 12.7 (10-20) Glucose 83 (70-99(Fasting)) mg/dl Calcium 9.1 (8.6-10.3) mg/dl Magnesium 1.6 L (1.7-2.4) mg/dl TSH 1.528 (0.300-4.500) uIu/ml Urine Color Dark Yellow Urine Appearance Cloudy A (Clear) Urine pH 5.5 (4.5-7.5) Ur Specific Mcdonough 1.028 (1.000-1.030) Urine Protein Negative (Negative) Urine Glucose (UA) Negative (Negative) Urine Ketones Trace H (Negative) Urine Blood Negative (Negative) Urine Nitrite Negative (Negative) Urine Bilirubin Negative (Negative) Urine Urobilinogen Negative (Negative) Ur Leukocyte Esterase Negative (Negative) Urine WBC (Auto) 0-5 (0-5) /hpf Urine RBC (Auto) 3-5 H (0-2) /hpf U Hyaline Cast (Auto) 0-2 (0-2) /lpf U Epithel Cells (Auto) 11-20 H (0-2) /hpf Urine Bacteria (Auto) None Seen (None Seen) Uric Acid Crystals Present A (None Prsent) Urine Mucus Present A (None Prsent) Urine Yeast Present A (None Prsent) Gastric Fluid pH Cancelled Gastric Occult Blood Cancelled Stool Occult Bld Scrn Positive A (Negative) Stl C. cayetanensis PCR Not Detected (NotDetected) Stool Rotavirus A PCR Not Detected (NotDetected) Stl Adenov F 40/41 PCR Not Detected (NotDetected) Stool Astrovirus (PCR) Not Detected (NotDetected) Stool Campylobacter PCR Not Detected (NotDetected) Stl C. diff Tox B Gene Negative Cdiff Gene (Neg) Stool Cryptosporidium PCR Not Detected (NotDetected) Stl E.coli Shiga Tox PCR Not Detected (NotDetected) Stl Enterotoxigenic E PCR Not Detected (NotDetected) Stool EPEC (PCR) Not Detected (NotDetected) Stool EAEC (PCR) Not Detected (NotDetected) Stl E. histolytica PCR Not Detected (NotDetected) Stool Giardia Lamblia PCR Not Detected (NotDetected) Stool Salmonella PCR Not Detected (NotDetected) Stool Sapovirus (PCR) Not Detected (NotDetected) Stl P. shigelloides PCR Not Detected (NotDetected) Stl Shigella/EIEC PCR Not Detected (NotDetected) St Y.enterocolitica PCR Not Detected (NotDetected) Stool Vibrio (PCR) Not Detected (NotDetected) Stl Vibrio cholerae PCR Not Detected (NotDetected) Stl Norovirus GI/GII PCR Not Detected (NotDetected) PG Care Time/CCT Total # of Minutes Spent Total Time Spent with Patient: Total time spent is greater than 50% in coordination of care (as documented) at patient's floor/unit and/or counseling patient: Coding Level of Care Code 61218 SUB INP/OBS CARE 3/50MIN Diagnoses T12 compression fracture S22.080A Ambulatory dysfunction R26.2 UTI (urinary tract infection) N39.0 Depression F32.9 GERD (gastroesophageal reflux disease) K21.9 Thrombocytopenia D69.6
[2023-10-21 08:46] LABS: Albumin Level 3.4 gm/dl (3.4-5.0); Bilirubin Direct 0.1 mg/dl (0-0.2); Bilirubin,Total 0.5 mg/dl (0.2-1.0); Total Protein 6.3 gm/dl (6.0-8.3); Uric Acid 3.7 mg/dl (2.6-7.2)
[2023-10-21] MEDS: MAGNESIUM SULFATE / D5W 1 GM/100 ML BAG IV SCH (09:15)
[2023-10-21] MEDS: ALPRAZolam 0.5 MG TABLET PO SCH (09:52)
--- NOTE | 2023-10-21 11:28 | Orthopedic Consultation ---
Date of Service October 21, 2023 Assessment & Plan (1) T12 compression fracture: (2) Chronic lumbar pain: Plan Discussed with patient, recommend new orthosis that would be better fitting for her body habitus, appropriate pain medication and mobilization with physical therapy. Also recommend thoracolumbar radiographs AP and lateral. The patient reports that she will be going to rehab, and she should follow-up with Dr. Mixon subsequent to mobilization relative to her kyphoplasty on 24 September. History of Present Illness Reason for Consultation: . Low back pain. Requesting Physician: . Attending Physician: Uri Brothers MD . Patient reports onset of additional low back pain approximately 2 weeks ago without any specific inciting incident. Of note is that the patient is status post an L1 kyphoplasty performed by Dr. Mixon on September 24 without incident. She was improved from that procedure, and was merely ambulating when the pain onset developed. She also has a history of urinary tract infection which has been problematic in treatment, she was brought to the emergency room and then admitted to the hospital for additional treatment. Exam reveals her to indicate pain in the lumbar region, she has intact strength in the lower extremities for ankle plantar dorsiflexion EHL knee flexion extension strength and hip flexion extension. Sensation is intact in lower extremities outside of light decreased to touch. Allergies Allergy/AdvReac Type Severity Reaction Status Date / Time NSAIDS (Non-Steroidal Allergy Unknown THROMBOCYTO Verified 10/19/23 11:49 Anti-Inflamma PENIA sumatriptan AdvReac Intermediate PANIC Verified 10/19/23 11:49 ATTACKS ketorolac AdvReac Mild SKIN Verified 10/19/23 11:49 IRRITATION Home Medications Medication Instructions Recorded Confirmed Type alprazolam 0.5 mg tablet 0.5 mg PO QID PRN Anxiety 01/23/22 10/19/23 History escitalopram oxalate 10 mg tablet 10 mg PO QAM 01/23/22 10/19/23 History escitalopram oxalate 20 mg tablet 20 mg PO QAM 01/23/22 10/19/23 History omeprazole 20 mg capsule,delayed 20 mg PO QAM #90 caps 01/24/23 10/19/23 Rx release fenofibrate nanocrystallized 145 145 mg PO QAM 03/21/23 10/19/23 History mg tablet acetaminophen 325 mg tablet 650 mg (2 x 325 mg) PO Q4H PRN 09/26/23 10/19/23 Rx pain #30 tabs ondansetron 4 mg disintegrating 4 mg PO Q8H PRN nausea and 10/13/23 10/19/23 Rx tablet vomiting #7 tabs ciprofloxacin HCl 500 mg tablet 500 mg PO Q12H #20 tabs 10/19/23 10/19/23 Rx hydrocodone 5 mg-acetaminophen 325 1 tab PO UD 10/19/23 10/19/23 History mg tablet oxycodone 5 mg tablet 5 mg PO UD 10/19/23 10/19/23 History tizanidine 4 mg capsule 4 mg PO TID PRN muscle spasticity 10/19/23 10/19/23 Rx #60 caps 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/23/22) Anxiety GERD (gastroesophageal reflux disease) Thrombocytopenia Compression fracture Post traumatic stress disorder (PTSD) Depression Surgical History H/O ventral hernia repair H/O bilateral breast reduction surgery History of esophagogastroduodenoscopy (EGD) History of colonoscopy History of back surgery History of appendectomy History of cholecystectomy H/O: hysterectomy H/O tooth extraction History of bowel resection (~2014) Family History Father Colorectal cancer Brother Colorectal cancer Denies family history of Ovarian cancer Prostate cancer Myocardial infarction Breast cancer Social History Smoking Status: Former smoker Tobacco Type: Cigarettes Age Started Using Tobacco: 22; Cigarettes Per Day: 2 a day; Second Hand Exposure: Yes; Do You Dip or Chew Tobacco: No; Hx Alcohol Use: No Hx Substance Use: No Preferred Language: Tamazight Communication Ability: Effective Visual Impairment: No Limitations Hearing Ability: Normal Rehabilitation Services Director Required: No Beliefs That Will Affect Care: None marital status: Current Living Situation: Spouse current occupational status: retired How many Children do You have: 4 Feels Safe at Home: Yes Childhood Exposure to Second-Hand Smoke: Yes Diet Comment: NO RED MEAT Dental Care, Regularly: No Physical Activity Frequency: Does not Exercise Seatbelt Use: always Sunscreen Use: No Assistive Devices: Scooter/Electric Scooter, Walker and Wheelchair Review of Systems All systems reviewed & are unremarkable except as noted in HPI & below. Physical Exam . Results & Data Results & Data Laboratory Results . Diagnostic Findings CT SCAN OF THE LUMBAR SPINE WITH IV CONTRAST October 19, 2023 CLINICAL HISTORY: Low back pain. Recent surgery. COMPARISON STUDY: CT scan of the lumbar spine dated 10/10/2023 and 02/07/2022. TECHNIQUE: CT scan of the lumbar spine is performed from the lower thoracic spine to the sacrum following the administration of 92 cc of Optiray 320. Images are reviewed in axial, sagittal, and coronal planes. IV contrast was administered without complication. A dose lowering technique was utilized adhering to the principles of ALARA. FINDINGS: The skeletal structures are osteopenic. Again seen is a superior endplate compression fracture of L1 status post vertebroplasty. There is minimal retropulsion of fragments. This is unchanged from 10/10/2023. Chronic superior endplate compression deformities of L2 and L3 are also unchanged. No acute fracture is identified involving the lumbar spine. There is a mild acute inferior endplate compression fracture of T12. This is new from previous. Mild paravertebral edema is noted. No retropulsion of fragments is seen. There is no malalignment. Vertebral body height is maintained at L4 and L5. Alignment is preserved. The transverse and spinous processes appear intact. There is no spondylolysis. No lytic or blastic lesion is seen. Anterior and lateral marginal osteophytes are seen throughout. There is moderate disc space narrowing at L4-L5 with associated vacuum phenomenon. Mild disc space narrowing is seen at the remaining lumbar levels. There is multilevel degenerative endplate sclerosis. There is no CT evidence of large disc herniation or high-grade central canal stenosis throughout the lumbar spine. Facet arthropathy is noted in the lower lumbar region. The visualized sacrum and bony pelvis appear intact. There is fatty atrophy of the paraspinous musculature. There is diverticulosis of the visualized sigmoid colon. The abdominal aorta is normal in course and caliber noting advanced atherosclerotic calcification. IMPRESSION: 1. There is an acute inferior endplate compression fracture of T12. There is only minimal loss of height. No retropulsion of fragments is seen. 2. Chronic lumbar compression deformities as above status post vertebroplasty at L1. These are unchanged from previous. 3. Osteopenia and spondylotic change as above. CT images were reviewed, is my separate interpretation reveals stable appearance of the lumbar vertebra and the kyphoplasty, small fracture involving the inferior aspect of T12 but not completely visualized on CT scan. PG Care Time/CCT Total # of Minutes Spent Total Time Spent with Patient: Total time spent is greater than 50% in coordination of care (as documented) at patient's floor/unit and/or counseling patient: Coding Level of Care Code 61539 IN/OBS CONSULT LVL 3,45M Diagnoses T12 compression fracture S22.080A Chronic lumbar pain M54.50; G89.29
--- NOTE | 2023-10-21 13:02 | XRay Report ---
THORACOLUMBAR SPINE 2 VIEWS CLINICAL HISTORY: Status post L1 kyphoplasty. T12 fracture. FINDINGS: AP and lateral standing views of the thoracolumbar spine are correlated with the lumbar spi ne CT dated 10/19/2023. The skeletal structures are osteopenic. There is a compression deformity of L1 status post vertebroplasty. Again seen is an acute inferior endplate compression fracture of T12. Th ere are no significant retropulsed fragments at this level. There is only mild loss of height. Chroni c compression deformities of L2 and L3 are again noted. Vertebral body height is maintained at L4 and L5. Alignment is preserved. Anterior and lateral marginal osteophytes are seen throughout. The trans verse and spinous processes appear intact. The visualized bony pelvis appears intact. Degenerative sc lerosis is noted in the sacroiliac joints. Surgical clips project over the pelvis. No bowel obstructi on is seen. IMPRESSION: 1. An acute inferior endplate compression fracture of T12 is unchanged. No retropulsion of fragments is seen. 2. Additional chronic compression deformities as above with evidence of prior vertebroplasty at L1. Dictated: 10/21/2023 12:27 PM Transcribed: 10/21/2023 12:35 PM Tee [id number] [email or web address] Electronically signed by: Baldomero Reeder M.D. 10/21/2023 1:00 PM
[2023-10-21] MEDS: MoRPHine SULFATE 4 MG/ML 1 ML CARP\\VIAL IV PRN (18:56)
[2023-10-21] MEDS: PANTOprazole 40 MG TAB PO SCH (20:59)
[2023-10-22 04:55] LABS: Basophils # (auto) 0.04 K/uL (0.00-0.20); Basophils % (auto) 0.7 %; Eosinophils # (auto) 0.26 K/uL (0.00-0.50); Eosinophils % (auto) 4.3 %; Hematocrit (blood only) 42.1 % (37.0-47.0); Hemoglobin 13.9 g/dl (12.0-16.0); Immature Granulocytes # (auto) 0.01 K/uL (0.01-0.20); Immature Granulocytes % (auto) 0.2 %; Lymphocytes # (auto) 1.45 K/uL (1.20-3.40); Mean Corpuscular Hemoglobin 30.5 pg (25.0-34.0); Mean Corpuscular Volume 92.5 fL (80.0-100.0); Mean Platelet Volume 14.4 fL (9.4-12.4); Monocytes % (auto) 6.6 %; Neutrophils # (auto) 3.89 K/uL (1.40-6.50); Neutrophils % (auto) 64.2 %; Platelet Count 44 K/uL (130-400); RDW Coefficient of Variation 12.9 % (11.5-14.5); RDW Standard Deviation 43.8 fL (36.4-46.3); Red Blood Count 4.55 M/uL (4.20-5.40); White Blood Count 6.05 K/ul (4.8-10.8)
[2023-10-22 05:04] LABS: BUN Creatinine Ratio 13.6 (10-20); Calcium 9.5 mg/dl (8.6-10.3); Creatinine Clr Calc Pharmacy 115.7 ml/min; Est GFR (African American) 110.7 ml/min; Est GFR (Non-African American) 95.5 ml/min; Magnesium 1.9 mg/dl (1.7-2.4); Potassium 3.5 mmol/L (3.5-5.1)
--- NOTE | 2023-10-22 07:42 | Hospitalist Progress Note ---
Date of Service October 22, 2023 Assessment & Plan (1) T12 compression fracture: Plan: Admit to med/tele , stable and non-toxic appearing Sent to ER by PCP for worsened back pain/inability to complete ADLs at home Is s/p kyphoplasty of L1 w/ Dr Mixon on 09/24 and was dc in stable condition on oral pain control but then presented to ER on 10/09 with worsened back pain and discharged on oral pain control but then went to [facility] for ongoing pain and was diagnosed with UTI, sent home on Macrobid to complete treatment after 24hr IV abx and was not able to obtain auth for rehab and eventually denied and discharged home. Seen by PCP and sent to ER for ongoing pain control/rehab, recs for Cipro for UTI Worsened pain for past week, no red flag symptoms however Found to have an Acute mild T12 compression fracture. No change in appearance of the L1 kyphoplasty. Old L2-L4 compression fractures on admission CT Pain control - tylenol, heat, muscle spasm w/ Flexeril prn, calcitonin nasal spray - added oxycodone 5-10mg prn as needed and resumption in her xanax scheduled which is helping with spasm pain - morphine available for severe -- HAS NOT NEEDED 10/21, monitor Antiemetics - zofran added, noting nausea w/ morphine prior Vitamin D 17.3, ergocalciferol ordered weekly -Should eventually be switched to bisphosphonate when acute pain improved, had prior been following [facility] consulted for TLSO brace, seen monday but did not provide as one in room, however ill fitting --> to return monday to re-fit Ortho spine consulted given ongoing pain -- recs for pain control/continued therapy, Dr Mixon to be back in AM Monday for eval Moving her bowels, no further darkened color. Remains on PPI BID for now, recent hx diverticulitis this past month. Moving bowels, no further abd pain Of note, review of prior pathology from her kyphoplasty -Osteonecrosis with focal active inflammation, noting marrow elements with numerous eosinophils. At that time her CBC did note elevated eosinophils but she has had varying degrees of elevation. Will consult hematology/oncology to weigh in on pathology as well given her chronic thrombocytopenia Downgrade off telemetry this afternoon, has been NSR 60-70s, no arrhythmia PT/OT consults in AM once brace in place, CM to follow for hopeful rehab given repeat admission (2) Ambulatory dysfunction: Plan: Due to acute pain and muscle spasms from T12 compression fracture , no loss of bowel/bladder function at present pain control, therapy consults as above monitor repeat UA/cx, abx as above -- no growth, will dc abx (3) UTI (urinary tract infection): Plan: Patient was diagnosed with a UTI at [facility] on 10/16, we do not have the culture results at this time Rx'd Macrobid on 10/16, however, she has previously grown Klebsiella resistant to Macrobid Ceftriaxone continued for UTI coverage, [facility] records without growth Urine cx from admission mod normal mell UA did note RBC but no blood, CK wnl as well as uric acid. ?passed stone Will DISCONTINUE IV abx 10/21 Stool for PCR as above NEGATIVE, negative cdiff (4) Depression: Plan: Continue lexapro, xanax support provided MADE XANAX QID SCHEDULE, to assist w/ pain/spasm but also takes routinely at home w/ improvement as above (5) GERD (gastroesophageal reflux disease): Plan: Continue PPI , increased to BID for above . monitor hgb but may need to consult w/ GI --stable at present, no further blood in stool (does have grade 4 hemorrhoids) Mag 1.6-- IV replacement ordered and normalized on repeat but will monitor Will need GI f/u for c-scope given recent diverticulitis (do note patient w/ hx perforated diverticulitis requiring resection) (6) Thrombocytopenia: Plan: Chronic , plt 56 on admit, currently 41. no bleeding reported however RBC in urine (?stone passed, low Vit D), +fecal occult but has hx grade 4 hemorrhoids. ppi increased to BID avoid ASA/NSAIDs as long as plt <50k (patient reports avoiding NSAIDs at home but has had rate aleeve -- avoid) Hematology consulted as above, hx drinking/fatty liver on imaging but no heavy use at this time. Pathology from prior kyphoplasty w/ Osteonecrosis with focal active inflammation, Marrow elements with numerous eosinophils Plt 44 and monitor Plan continued inpatient stay, await PT/OT consults once brace w/ orthotics in AM pain control CM to follow for rehab placement following therapy evals Admission and Anticipated Discharge Date Admission Date: October 19, 2023 Supervising Physician Co-Signing Physician Notes The patient was not seen by me. The chart was reviewed. Case discussed with OSWALDO Santana. Agree with assessment and plan Subjective Eval this afternoon - per nursing, patient doing pretty good today and able to move around a little better today compared to yesterday. Still waiting for orthotics for new TLSO brace. Evaluated resting in bed, appears much better today. Has been ambulating in the room with improvement in pain control. Moved her bowels this morning and no further darkened color reported. Discuss continuing PPI BID in meantime. She has NOT had to utilize and IV pain medications for today and improvement in pain since resuming her home xanax for anxiety/depression and suspect helping w/ spasms as well. NSR 60-70s on monitor, no arrhythmia. Downgrading off telemetry this afternoon. No CP/SOB. Will await therapy evals with brace from orthotics in AM, rehab planned. She did mention about someone maybe telling her she's doing so well and maybe could go home but discussed attempted prior and will attempt rehab placement given readmission and stay at OSH as well for same issue. Questions/concerns addressed. Physical Exam Physical Exam: General 68yo female laying in bed, appears improved today, NAD, mood improved, support provided Head atraumatic, normocephalic, mmm, trachea midline Resp: even/unlabored, diminished in the bases CV: RRR, no significant m/r/g, trace pedal edema, pulses palpable, calves n ontender GI: +BS throughout, +obese, soft, slight tenderness lower abdominal walsh without rigidity/guarding MSK/Neuro: central back pain, b/l LE strength testing intact, able to sit up in bed, small area to her R lower back reported lipoma prior/prior scar noted pain to her L shoulder when raising above level of shoulders (reports hasn't been able to wash her hair in some time) -- no reports of discomfort today Psych: AOx3, cooperative with exam Results & Data Results & Data Vital Signs (Past 12 Hours) Vital Signs Temp Pulse Pulse Resp BP BP Pulse Ox 10/22/23 07:31 36.6 C 67 19 153/89 H 94 10/22/23 07:20 61 10/22/23 03:16 36.5 C 67 18 134/85 90 10/21/23 23:10 36.7 C 66 18 132/82 92 10/21/23 23:01 70 O2 Del Method 10/22/23 07:31 Room Air 10/22/23 07:20 10/22/23 03:16 Room Air 10/21/23 23:10 Room Air 10/21/23 23:01 Laboratory Results 10/22/23 10/21/23 10/20/23 Range/Units 03:29 04:15 04:28 WBC 6.05 (4.8-10.8) K/ul RBC 4.55 (4.20-5.40) M/uL Hgb 13.9 (12.0-16.0) g/dl Hct 42.1 (37.0-47.0) % MCV 92.5 (80.0-100.0) fL MCH 30.5 (25.0-34.0) pg MCHC 33.0 (32.0-36.0) g/dL RDW Std Deviation 43.8 (36.4-46.3) fL RDW Coeff of Deanne 12.9 (11.5-14.5) % Plt Count 44 L (130-400) K/uL MPV 14.4 H (9.4-12.4) fL Immature Gran % (Auto) 0.2 % Neut % (Auto) 64.2 % Lymph % (Auto) 24.0 % Archuleta % (Auto) 6.6 % Eos % (Auto) 4.3 % Baso % (Auto) 0.7 % Neut # (Auto) 3.89 (1.40-6.50) K/uL Lymph # (Auto) 1.45 (1.20-3.40) K/uL Archuleta # (Auto) 0.40 (0.11-0.59) K/uL Eos # (Auto) 0.26 (0.00-0.50) K/uL Baso # (Auto) 0.04 (0.00-0.20) K/uL Immature Gran # (Auto) 0.01 (0.01-0.20) K/uL Sodium 134 L (136-145) mmol/L Potassium 3.5 (3.5-5.1) mmol/L Chloride 99 (98-107) mmol/L Carbon Dioxide 26 (21-32) mmol/L Anion Gap 9 (3-11) BUN 8 (6-23) mg/dl Creatinine 0.59 L (0.6-1.2) mg/dl Est Cr Clr Drug Dosing 115.7 ml/min Est GFR ( Amer) 110.7 ml/min Est GFR (Non-Af Amer) 95.5 ml/min BUN/Creatinine Ratio 13.6 (10-20) Glucose 84 (70-99(Fasting)) mg/dl Uric Acid 3.7 (2.6-7.2) mg/dl Calcium 9.5 (8.6-10.3) mg/dl Magnesium 1.9 (1.7-2.4) mg/dl Total Bilirubin 0.5 D (0.2-1.0) mg/dl Direct Bilirubin 0.1 (0-0.2) mg/dl AST 25 (13-39) U/L ALT 13 (7-52) U/L Alkaline Phosphatase 84 (34-104) U/L Total Creatine Kinase 31 (26-192) U/L Total Protein 6.3 (6.0-8.3) gm/dl Albumin 3.4 (3.4-5.0) gm/dl Lyme Disease Screen Negative (Negative) PG Care Time/CCT Total # of Minutes Spent Total Time Spent with Patient: Total time spent is greater than 50% in coordination of care (as documented) at patient's floor/unit and/or counseling patient: Coding Level of Care Code 30224 SUB INP/OBS CARE 2/35MIN Diagnoses T12 compression fracture S22.080A Ambulatory dysfunction R26.2 UTI (urinary tract infection) N39.0 Depression F32.9 GERD (gastroesophageal reflux disease) K21.9 Thrombocytopenia D69.6
--- NOTE | 2023-10-22 10:31 | Orthopedic Progress Note ---
Date of Service October 22, 2023 Subjective Patient feeling improved with less pain in the thoracolumbar region. No changes on examination. Review of radiographs of the thoracolumbar junction upright reveal the inferior T12 compression fracture more so on the right side with some limited levoscoliosis, minimal amount of kyphotic angulation on the lateral view. Talk with patient and family member, she will be refitted with a better fitting brace tomorrow and continue with mobilization. Patient was advised as to bending lifting twisting, mobilization and follow-up. Review of Systems All systems reviewed & are unremarkable except as noted in HPI & below. Physical Exam . Results & Data Results & Data Laboratory Results . Diagnostic Findings . PG Care Time/CCT Total # of Minutes Spent Total Time Spent with Patient: Total time spent is greater than 50% in coordination of care (as documented) at patient's floor/unit and/or counseling patient: Coding Level of Care Code 92153 SUB INP/OBS CARE 2/35MIN
--- NOTE | 2023-10-22 14:49 | Oncology Consultation ---
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 At this point my recommendation would be to only treat the patient if she is in need for complex neurosurgical procedure. I understand that she has a compressi on fracture of the T12 vertebrae, treatment per our neurosurgery/orthopedic surgery colleagues. If she needs surgical treatment in that case I will recommend platelet transfusion to bring the platelet count at least above 75,000/mcL. The other option would be to consider a trial of IVIG/Decadron especially since we are concerned that this may be longstanding ITP. Transfuse if platelet count is less than 10,000/mcL or if the patient is actively bleeding. Transfuse if the platelet count is less than 10,000/mcL or if the patient is actively bleeding. (2) Compression fracture of T12 vertebra: Compression fracture of T12 vertebrae to be managed by our orthopedic surgery colleagues. Plan Thank you for this interesting urological consult. A total of 60 minutes was spent in counseling, coordination of care review of prior records. Hematology will continue to follow the patient make appropriate recommendations. History of Present Illness Reason for Consultation: Thrombocytopenia Attending Physician: Uri Brothers MD History of Present Illness The patient is a very pleasant 68-year-old woman who has a long history of thrombocytopenia. Previously did see a provider in [place] for thrombocytopenia 3 years ago. However has never been on any kind of treatment for thrombocytopenia. Her platelet count has historically ranged between 40 to 50,000/mcL. On admission she was found to have a T12 compression fracture, was evaluated by orthopedics. During this time she also had a CBC which revealed a platelet count of 44,000/mcL. Hematology has been consulted to assist with management of this patient with longstanding unexplained thrombocytopenia. The patient does not report any active bleeding or bruising. Does not report any fever or chills. Does not report any nausea or vomiting. She has not noticed any growing lumps anywhere. She does not have any other B symptoms. Allergies Allergy/AdvReac Type Severity Reaction Status Date / Time NSAIDS (Non-Steroidal Allergy Unknown THROMBOCYTO Verified 10/19/23 11:49 Anti-Inflamma PENIA sumatriptan AdvReac Intermediate PANIC Verified 10/19/23 11:49 ATTACKS ketorolac AdvReac Mild SKIN Verified 10/19/23 11:49 IRRITATION Home Medications Medication Instructions Recorded Confirmed Type alprazolam 0.5 mg tablet 0.5 mg PO QID PRN Anxiety 01/23/22 10/19/23 History escitalopram oxalate 10 mg tablet 10 mg PO QAM 01/23/22 10/19/23 History escitalopram oxalate 20 mg tablet 20 mg PO QAM 01/23/22 10/19/23 History omeprazole 20 mg capsule,delayed 20 mg PO QAM #90 caps 01/24/23 10/19/23 Rx release fenofibrate nanocrystallized 145 145 mg PO QAM 03/21/23 10/19/23 History mg tablet acetaminophen 325 mg tablet 650 mg (2 x 325 mg) PO Q4H PRN 09/26/23 10/19/23 Rx pain #30 tabs ondansetron 4 mg disintegrating 4 mg PO Q8H PRN nausea and 10/13/23 10/19/23 Rx tablet vomiting #7 tabs ciprofloxacin HCl 500 mg tablet 500 mg PO Q12H #20 tabs 10/19/23 10/19/23 Rx hydrocodone 5 mg-acetaminophen 325 1 tab PO UD 10/19/23 10/19/23 History mg tablet oxycodone 5 mg tablet 5 mg PO UD 10/19/23 10/19/23 History tizanidine 4 mg capsule 4 mg PO TID PRN muscle spasticity 10/19/23 10/19/23 Rx #60 caps Patient History Medical History Diverticulitis Chronic pain History of anesthesia reaction Vocal cord polyp Osteoporotic compression fracture of spine (01/23/22) Anxiety GERD (gastroesophageal reflux disease) Thrombocytopenia Compression fracture Post traumatic stress disorder (PTSD) Depression Surgical History H/O ventral hernia repair H/O bilateral breast reduction surgery History of esophagogastroduodenoscopy (EGD) History of colonoscopy History of back surgery History of appendectomy History of cholecystectomy H/O: hysterectomy H/O tooth extraction History of bowel resection (~2014) Family History Father Colorectal cancer Brother Colorectal cancer Denies family history of Ovarian cancer Prostate cancer Myocardial infarction Breast cancer Social History Smoking Status: Former smoker Tobacco Type: Cigarettes Age Started Using Tobacco: 22; Cigarettes Per Day: 2 a day; Second Hand Exposure: Yes; Do You Dip or Chew Tobacco: No; Hx Alcohol Use: No Hx Substance Use: No Preferred Language: Romansh Communication Ability: Effective Visual Impairment: No Limitations Hearing Ability: Normal Agent Based Modeler Required: No Beliefs That Will Affect Care: None marital status: Current Living Situation: Spouse current occupational status: retired How many Children do You have: 4 Feels Safe at Home: Yes Childhood Exposure to Second-Hand Smoke: Yes Diet Comment: NO RED MEAT Dental Care, Regularly: No Physical Activity Frequency: Does not Exercise Seatbelt Use: always Sunscreen Use: No Assistive Devices: Scooter/Electric Scooter, Walker and Wheelchair Review of Systems Review of Systems: All systems reviewed & are unremarkable except as noted in HPI & below Constitutional: as per Subjective / HPI Eyes: as per Subjective / HPI Ear, Nose, Mouth, Throat: as per Subjective / HPI Respiratory: as per Subjective / HPI Cardiovascular: as per Subjective / HPI Gastrointestinal: as per Subjective / HPI Genitourinary: as per Subjective / HPI Physical Exam Constitutional: WD/WN, vitals as above Eyes: PERRL, conjunctivae normal, anicteric sclerae ENMT: external ear and nose normal, oropharynx normal Neck: trachea midline, no thyromegaly Respiratory: normal respiratory effort, lungs clear to auscultation Cardiovascular: RRR, no murmur, no edema Gastrointestinal (Abdomen): normal bowel sounds, soft, nontender, no hepatosplenomegaly Musculoskeletal: no cyanosis or clubbing, extremities motor strength 5/5 Skin: no rashes, warm and dry Results & Data Vital Signs (Past 12 Hours) Vital Signs Temp Pulse Pulse Resp BP BP Pulse Ox 10/22/23 14:40 36.8 C 66 18 124/79 90 10/22/23 11:20 36.9 C 68 18 135/85 90 10/22/23 09:46 10/22/23 07:31 36.6 C 67 19 153/89 H 94 10/22/23 07:20 61 10/22/23 03:16 36.5 C 67 18 134/85 90 O2 Del Method 10/22/23 14:40 Room Air 10/22/23 11:20 Room Air 10/22/23 09:46 Room Air 10/22/23 07:31 Room Air 10/22/23 07:20 10/22/23 03:16 Room Air
[2023-10-23 06:21] LABS: Basophils # (auto) 0.03 K/uL (0.00-0.20); Basophils % (auto) 0.5 %; Eosinophils # (auto) 0.26 K/uL (0.00-0.50); Eosinophils % (auto) 4.7 %; Hematocrit (blood only) 44.9 % (37.0-47.0); Hemoglobin 14.5 g/dl (12.0-16.0); Immature Granulocytes # (auto) 0.01 K/uL (0.01-0.20); Immature Granulocytes % (auto) 0.2 %; Lymphocytes # (auto) 1.28 K/uL (1.20-3.40); Mean Corpuscular Hemoglobin 30.2 pg (25.0-34.0); Mean Corpuscular Hgb Conc 32.3 g/dL (32.0-36.0); Mean Corpuscular Volume 93.5 fL (80.0-100.0); Mean Platelet Volume 14.1 fL (9.4-12.4); Monocytes # (auto) 0.36 K/uL (0.11-0.59); Monocytes % (auto) 6.5 %; Neutrophils # (auto) 3.63 K/uL (1.40-6.50); Neutrophils % (auto) 65.1 %; Platelet Count 46 K/uL (130-400); RDW Coefficient of Variation 13.1 % (11.5-14.5); RDW Standard Deviation 44.7 fL (36.4-46.3); White Blood Count 5.57 K/ul (4.8-10.8)
[2023-10-23 06:45] LABS: BUN Creatinine Ratio 10.1 (10-20); Calcium 9.7 mg/dl (8.6-10.3); Creatinine Clr Calc Pharmacy 97.8 ml/min; Est GFR (African American) 105.1 ml/min; Est GFR (Non-African American) 90.7 ml/min; Magnesium 1.7 mg/dl (1.7-2.4); Potassium 3.5 mmol/L (3.5-5.1)
--- NOTE | 2023-10-23 08:10 | Hospitalist Progress Note ---
<Statement entered by Ailyn Ribeiro MD - 10/23/23 20:41> Agree with documentation below. Evaluation for potential kyphoplasty by Dr. Mixon. Has chronic thrombocytopenia likely longstanding ITP with consideration for platelet transfusion prior to surgeries per Dr. Demarco's recommendations. She also has mild splenomegaly on CT abdomen associated with hepatic steatosis which may affect her platelet count somewhat as well. Date of Service October 23, 2023 Assessment & Plan (1) T12 compression fracture: Plan: Admit to med/tele , stable and non-toxic appearing Sent to ER by PCP for worsened back pain/inability to complete ADLs at home Is s/p kyphoplasty of L1 w/ Dr Mixon on 09/24 and was dc in stable condition on oral pain control but then presented to ER on 10/09 with worsened back pain and discharged on oral pain control but then went to [facility] for ongoing pain and was diagnosed with UTI, sent home on Macrobid to complete treatment after 24hr IV abx and was not able to obtain auth for rehab and eventually denied and discharged home. Seen by PCP and sent to ER for ongoing pain control/rehab, recs for Cipro for UTI Worsened pain for past week, no red flag symptoms however Acute mild T12 compression fracture. No change in appearance of the L1 kyphoplasty. Old L2-L4 compression fractures on admission CT Vitamin D 17.3, - ergocalciferol ordered weekly - should eventually be switched to bisphosphonate when acute pain improved, had prior been following [facility] Orthotics consulted for TLSO brace, seen monday but did not provide as one in room, however ill fitting --> Alex fitting for this afternoon, getting extension piece from office. Rec to continue to wear w/ ambulation Pain control: tylenol, heat, flexeril, calcitonin nasal spray, oxycodone 5-10mg as needed. -Made her scheduled xanax to assist as well which helped. -Adding lidocaine patch - Morphine switched to dilaudid for breakthrough but encouraged to LIMIT use and that oral is better for longer lasting control. Ortho spine consulted given ongoing pain , seen by Dr Lackey this weekend, reported Dr Mixon to be back on Monday (patient reports has not yet seen -- messaged for eval) * Xray thorocolumbar spine 10/20 noting compression deformity of L1 status post vertebroplasty. Again seen is an acute inferior endplate compression fracture of T12. There are no significant retropulsed fragments at this level. There is only mild loss of height. Chronic compression deformities of L2 and L3 are again noted - recs for pain control/continued therapy in meantime until Dr Mixon able to weigh in Pain management consulted for ongoing pain requiring IV medications as well. Not able to use NSAIDs w/ her thrombocytopenia, plts<50k Moving her bowels, no further darkened color. No further abd pain reported, abx discontinued -Remains on PPI BID for now, recent hx diverticulitis this past month. Therapy to again re-eval in AM as told by patient wanting to go home but told me wanted rehab given ongoing issues/not back to her prior baseline Overnight pulse ox w/ desaturations, likely benefit from sleep study. (2) Ambulatory dysfunction: Plan: Due to acute pain and muscle spasms from T12 compression fracture , no loss of bowel/bladder function at present. Additional fractures as above Pain control, therapy consults as above. Dr Mixon to see again today, also consult for pain management monitor repeat UA/cx, abx as above -- no growth, dc'd abx Of note, review of prior pathology from her kyphoplasty -Osteonecrosis with focal active inflammation, noting marrow elements with numerous eosinophils. At that time her CBC did note elevated eosinophils but she has had varying degrees of elevation. Hematology consulted also given her thrombocytopenia. NO recs for bone marrow biopsy, suspect eosinophils from acute inflammation/fracture. Therapy to re-eval in AM (3) UTI (urinary tract infection): Plan: Patient was diagnosed with a UTI at [facility] on 10/16, we do not have the culture results at this time Rx'd Macrobid on 10/16, however, she has previously grown Klebsiella resistant to Macrobid Ceftriaxone continued for UTI coverage, [facility] records without growth Urine cx from admission mod normal mell UA did note RBC but no blood, CK wnl as well as uric acid. ?passed stone DISCONTINUED IV abx 10/21 Stool for PCR as above NEGATIVE, negative cdiff no increased urinary symptoms reported (4) Depression: Plan: Continue lexapro, xanax MADE XANAX QID SCHEDULE, to assist w/ pain/spasm but also takes routinely at home w/ improvement as above support provided (5) GERD (gastroesophageal reflux disease): Plan: Continue PPI , increased to BID for above . monitor hgb but may need to consult w/ GI --stable at present, no further blood in stool (does have grade 4 hemorrhoids) Mag 1.6-- IV replacement ordered and normalized on repeat Will need GI f/u for c-scope given recent diverticulitis (do note patient w/ hx perforated diverticulitis requiring resection) (6) Thrombocytopenia: Plan: Chronic , plt 56 on admit, currently 41. no bleeding reported however RBC in urine (?stone passed, low Vit D), +fecal occult but has hx grade 4 hemorrhoids. ppi increased to BID avoid ASA/NSAIDs as long as plt <50k (patient reports avoiding NSAIDs at home but has had rate aleeve -- avoid) Hematology consulted as above, hx drinking/fatty liver on imaging but no heavy use at this time. Pathology from prior kyphoplasty w/ Osteonecrosis with focal active inflammation, Marrow elements with numerous eosinophils Plt 46 and monitor Plan continued inpatient stay, orthotics fitting for brace Messaged Dr Mixon for eval/consideration kyphoplasty for new fractures/ongoing pain as well as pain management Therapy to see again in AM for consideration for rehab given repeat admissions for ongoing pain Admission and Anticipated Discharge Date Admission Date: October 19, 2023 Subjective Patient evaluated this afternoon, Alex from orthotics fitting with brace, going back to office for extension piece for better fit. Patient reports being MORE uncomfortable today, needing morphine x 2. Reports Dilaudid worked better than morphine last admission but will switch/encouraged oral opiates over IV. PT to re-eval in AM. Will see about Dr Mixon for eval/consideration repeat kyphoplasty given prior improvement and patient agreeable. No CP/SOB, moving her bowels. Appetite reported fair. Will see about pain management consult as well for further recs. Physical Exam Physical Exam: General 68yo sitting up in bed, working with orthotics, NAD but appearing mildly uncomfortable Head atraumatic, normocephalic, mmm, trachea midline Resp: even/unlabored, diminished in the bases CV: RRR, no significant m/r/g, trace pedal edema, pulses palpable, calves nontender GI: +BS throughout, +obese, soft, nontender MSK/Neuro: central back pain, b/l LE strength testing intact, able to sit up in bed, small area to her R lower back reported lipoma prior/prior scar noted reports increase in pain with movement in bed Psych: AOx3, cooperative with exam Results & Data Results & Data Vital Signs (Past 12 Hours) Vital Signs Temp Pulse Pulse Resp BP Pulse Ox Pulse Ox 10/23/23 02:28 69 91 10/22/23 22:44 36.5 C 68 20 118/71 92 10/22/23 22:00 69 92 10/22/23 21:30 O2 Del Method O2 Del Method 10/23/23 02:28 Room Air 10/22/23 22:44 Room Air 10/22/23 22:00 Room Air 10/22/23 21:30 Room Air Laboratory Results 10/23/23 Range/Units 05:32 WBC 5.57 (4.8-10.8) K/ul RBC 4.80 (4.20-5.40) M/uL Hgb 14.5 (12.0-16.0) g/dl Hct 44.9 (37.0-47.0) % MCV 93.5 (80.0-100.0) fL MCH 30.2 (25.0-34.0) pg MCHC 32.3 (32.0-36.0) g/dL RDW Std Deviation 44.7 (36.4-46.3) fL RDW Coeff of Deanne 13.1 (11.5-14.5) % Plt Count 46 L (130-400) K/uL MPV 14.1 H (9.4-12.4) fL Immature Gran % (Auto) 0.2 % Neut % (Auto) 65.1 % Lymph % (Auto) 23.0 % Wells % (Auto) 6.5 % Eos % (Auto) 4.7 % Baso % (Auto) 0.5 % Neut # (Auto) 3.63 (1.40-6.50) K/uL Lymph # (Auto) 1.28 (1.20-3.40) K/uL Wells # (Auto) 0.36 (0.11-0.59) K/uL Eos # (Auto) 0.26 (0.00-0.50) K/uL Baso # (Auto) 0.03 (0.00-0.20) K/uL Immature Gran # (Auto) 0.01 (0.01-0.20) K/uL Sodium 135 L (136-145) mmol/L Potassium 3.5 (3.5-5.1) mmol/L Chloride 98 (98-107) mmol/L Carbon Dioxide 30 (21-32) mmol/L Anion Gap 7 (3-11) BUN 7 (6-23) mg/dl Creatinine 0.69 (0.6-1.2) mg/dl Est Cr Clr Drug Dosing 97.8 ml/min Est GFR ( Amer) 105.1 ml/min Est GFR (Non-Af Amer) 90.7 ml/min BUN/Creatinine Ratio 10.1 (10-20) Glucose 92 (70-99(Fasting)) mg/dl Calcium 9.7 (8.6-10.3) mg/dl Magnesium 1.7 (1.7-2.4) mg/dl Folate 5.60 (>5.38) ng/ml PG Care Time/CCT Total # of Minutes Spent Total Time Spent with Patient: Total time spent is greater than 50% in coordination of care (as documented) at patient's floor/unit and/or counseling patient: Coding Level of Care Code 88885 SUB INP/OBS CARE 3/50MIN Diagnoses T12 compression fracture S22.080A Ambulatory dysfunction R26.2 UTI (urinary tract infection) N39.0 Depression F32.9 GERD (gastroesophageal reflux disease) K21.9 Thrombocytopenia D69.6
[2023-10-23] MEDS: MAGNESIUM OXIDE 400 MG TAB PO SCH (09:08)
[2023-10-23] MEDS: FOLIC ACID 1 MG TAB PO SCH (09:08)
[2023-10-23] MEDS: oxyCODONE HCL IR 5 MG TAB (IMMEDIATE RELEASE) PO PRN (11:58)
--- NOTE | 2023-10-23 16:10 | Communication Note ---
Date of Service: October 23, [address] Mixon this afternoon to see about evaluation occurring today per Dr Lackey day prior. Was told patient going home however with ongoing pain/new compression fractures and consideration for kyphoplasty. Dr Mixon to see in AM but can consider kyphoplasty tomorrow vs Monday. Will make NPO at midnight until seen by Dr Mixon/decision made. Gentle IVF at midnight while NPO.
[2023-10-23] MEDS: LIDOCAINE 5% 1 PATCH TD SCH (16:34)
[2023-10-23] MEDS: HYDROmorphone INJ 0.5 MG/0.5 ML SYR IV PRN (16:47)
[2023-10-24] MEDS: SODIUM CHLORIDE 0.9% 1,000 ML IV SCH (03:27)
--- NOTE | 2023-10-24 08:38 | Pain Management Consultation ---
Date of Consultation October 24, 2023 Assessment & Plan (1) Compression fracture of T12 vertebra: Encounter type: initial encounter Qualified Code(s): S22.080A - Wedge compression fracture of T11-T12 vertebra, initial encounter for closed fracture (2) Ambulatory dysfunction: (3) History of kyphoplasty: Plan 1. Continue Oxycodone 5-10 mg every 6 hours and Lidocaine patch for pain 2. Continue IV Dilaudid 0.5 mg x 6 hours if needed for breakthrough pain. We have discussed limiting the use of this medication in preparation of discharge and she is understanding. 3. We have discussed the importance to wear TLSO back brace with ambulation. 4. She is to be evaluated by Dr. Mixon today to discuss possible Kyphoplasty of the most recent T12 compression fracture. 5. She states that Flexeril does cause drowsiness so I will change it to Baclofen 5mg x 8 hours PRN to see if it may be better tolerated. 6. Nothing to offer interventionally. 7. Will sign off on the patient and monitor peripherally. Please contact with any questions or concerns. History of Present Illness Reason for Consultation: Back pain Attending Physician: Nallely Shelton MD History of Present Illness This is a 68-year-old female that has been seen in the [facility] for intractable back pain and ambulatory dysfunction. She does have a significant history of compression fractures from L1-L5 and did require an L1 kyphoplasty by Dr. Mixon on 09/25/2023 which did alleviate the pain. She has been experiencing increased back pain and found to have an acute T12 compression fracture. She does have a TLSO back brace to which she is instructed to wear when she is out of bed and ambulating. She is reporting pain rated 7/10 currently. She has been utilizing oxycodone and yesterday switched from IV morphine to IV Dilaudid. Patient states that the medications are providing moderate pain relief. She does continue to experience sharp stabbing pains with movement. Flexeril is ordered but she has taken it sparingly as she reports drowsiness from the medication. Pain is located along the thoracolumbar region and radiating in the lower abdomen. No bowel/bladder incontinence, saddle anesthesia, foot drop, leg weakness, falls. Case discussed with Dr. She Rogers Allergies Allergy/AdvReac Type Severity Reaction Status Date / Time NSAIDS (Non-Steroidal Allergy Unknown THROMBOCYTO Verified 10/19/23 11:49 Anti-Inflamma PENIA sumatriptan AdvReac Intermediate PANIC Verified 10/19/23 11:49 ATTACKS ketorolac AdvReac Mild SKIN Verified 10/19/23 11:49 IRRITATION Home Medications Medication Instructions Recorded Confirmed Type alprazolam 0.5 mg tablet 0.5 mg PO QID PRN Anxiety 01/23/22 10/19/23 History escitalopram oxalate 10 mg tablet 10 mg PO QAM 01/23/22 10/19/23 History escitalopram oxalate 20 mg tablet 20 mg PO QAM 01/23/22 10/19/23 History omeprazole 20 mg capsule,delayed 20 mg PO QAM #90 caps 01/24/23 10/19/23 Rx release fenofibrate nanocrystallized 145 145 mg PO QAM 03/21/23 10/19/23 History mg tablet acetaminophen 325 mg tablet 650 mg (2 x 325 mg) PO Q4H PRN 09/26/23 10/19/23 Rx pain #30 tabs ondansetron 4 mg disintegrating 4 mg PO Q8H PRN nausea and 10/13/23 10/19/23 Rx tablet vomiting #7 tabs ciprofloxacin HCl 500 mg tablet 500 mg PO Q12H #20 tabs 10/19/23 10/19/23 Rx hydrocodone 5 mg-acetaminophen 325 1 tab PO UD 10/19/23 10/19/23 History mg tablet oxycodone 5 mg tablet 5 mg PO UD 10/19/23 10/19/23 History tizanidine 4 mg capsule 4 mg PO TID PRN muscle spasticity 10/19/23 10/19/23 Rx #60 caps Patient History Medical History Diverticulitis Chronic pain History of anesthesia reaction Vocal cord polyp Osteoporotic compression fracture of spine (01/23/22) Anxiety GERD (gastroesophageal reflux disease) Thrombocytopenia Compression fracture Post traumatic stress disorder (PTSD) Depression Surgical History H/O ventral hernia repair H/O bilateral breast reduction surgery History of esophagogastroduodenoscopy (EGD) History of colonoscopy History of back surgery History of appendectomy History of cholecystectomy H/O: hysterectomy H/O tooth extraction History of bowel resection (~2014) Family History Father Colorectal cancer Brother Colorectal cancer Denies family history of Ovarian cancer Prostate cancer Myocardial infarction Breast cancer Social History Smoking Status: Former smoker Tobacco Type: Cigarettes Age Started Using Tobacco: 22; Cigarettes Per Day: 2 a day; Second Hand Exposure: Yes; Do You Dip or Chew Tobacco: No; Hx Alcohol Use: No Hx Substance Use: No Preferred Language: Iranian Communication Ability: Effective Visual Impairment: No Limitations Hearing Ability: Normal 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 Laying supine in the hospital bed. HEAD/FACE: Normocephalic and atraumatic. EYES: No drainage or conjunctival injection. ENT: Nose without bleeding or discharge. Oral mucosa moist. NECK: Full ROM without apparent pain. No swelling or masses noted. RESPIRATORY: Patient with unlabored breathing. No signs of respiratory distress. CHEST/AXILLA: Chest movement symmetrical. No deformities noted. SKIN: Pope, warm and dry. No rash noted. MS/EXTREMITY: No swelling, no deformities. Moving extremities appropriately. NEURO: Alert and appears oriented. Speech is fluent. Cranial Nerves are grossly intact. PSYCH: Alert, pleasant, affect is calm Results (Pain Clinic) Diagnostic Review Radiology Findings: THORACOLUMBAR SPINE 2 VIEWS CLINICAL HISTORY: Status post L1 kyphoplasty. T12 fracture. FINDINGS: AP and lateral standing views of the thoracolumbar spine are correlated with the lumbar spine CT dated 10/19/2023. The skeletal structures are osteopenic. There is a compression deformity of L1 status post vertebroplasty. Again seen is an acute inferior endplate compression fracture of T12. There are no significant retropulsed fragments at this level. There is only mild loss of height. Chronic compression deformities of L2 and L3 are again noted. Vertebral body height is maintained at L4 and L5. Alignment is preserved. Anterior and lateral marginal osteophytes are seen throughout. The transverse and spinous processes appear intact. The visualized bony pelvis appears intact. Degenerative sclerosis is noted in the sacroiliac joints. Surgical clips project over the pelvis. No bowel obstruction is seen. IMPRESSION: 1. An acute inferior endplate compression fracture of T12 is unchanged. No retropulsion of fragments is seen. 2. Additional chronic compression deformities as above with evidence of prior vertebroplasty at L1. Dictated: 10/21/2023 12:27 PM Transcribed: 10/21/2023 12:35 PM Tee [id number] [email or web address] Electronically signed by: Baldomero Reeder M.D. 10/21/2023 1:00 PM
[2023-10-24] MEDS: BACLOFEN 10 MG TAB PO PRN (10:31)
--- NOTE | 2023-10-24 14:53 | Consultation ---
Date of Consultation October 24, 2023 Assessment & Plan (1) Compression fracture of T12 vertebra: Ora has a new adjacent level T12 acute compression fracture. She is quite limited secondary to pain because of this. We have discussed pursuing kyphoplasty/biopsy of T12 for pain improvement. She would like to pursue this. Will make her n.p.o. after midnight in anticipation of proceeding with surgical intervention tomorrow. All questions have been answered in detail. History of Present Illness Reason for Consultation: T12 compression fracture Attending Physician: Nallely Shelton MD History of Present Illness Ora is a well-known patient of ours. She underwent on September 25, [address] Mixon. She felt great afterwards. Unfortunately she is having more significant back pain just above her incision site. She still trying to remain active. She uses a rolling walker. No radicular lower extremity pain, paresthesia, numbness. Patient does have a TLSO brace in the room. Provides modest improvement. She is also been seen by the pain management team and medication recommendations were given. Allergies Allergy/AdvReac Type Severity Reaction Status Date / Time NSAIDS (Non-Steroidal Allergy Unknown THROMBOCYTO Verified 10/19/23 11:49 Anti-Inflamma PENIA sumatriptan AdvReac Intermediate PANIC Verified 10/19/23 11:49 ATTACKS ketorolac AdvReac Mild SKIN Verified 10/19/23 11:49 IRRITATION Home Medications Medication Instructions Recorded Confirmed Type alprazolam 0.5 mg tablet 0.5 mg PO QID PRN Anxiety 01/23/22 10/19/23 History escitalopram oxalate 10 mg tablet 10 mg PO QAM 01/23/22 10/19/23 History escitalopram oxalate 20 mg tablet 20 mg PO QAM 01/23/22 10/19/23 History omeprazole 20 mg capsule,delayed 20 mg PO QAM #90 caps 01/24/23 10/19/23 Rx release fenofibrate nanocrystallized 145 145 mg PO QAM 03/21/23 10/19/23 History mg tablet acetaminophen 325 mg tablet 650 mg (2 x 325 mg) PO Q4H PRN 09/26/23 10/19/23 Rx pain #30 tabs ondansetron 4 mg disintegrating 4 mg PO Q8H PRN nausea and 10/13/23 10/19/23 Rx tablet vomiting #7 tabs ciprofloxacin HCl 500 mg tablet 500 mg PO Q12H #20 tabs 10/19/23 10/19/23 Rx hydrocodone 5 mg-acetaminophen 325 1 tab PO UD 10/19/23 10/19/23 History mg tablet oxycodone 5 mg tablet 5 mg PO UD 10/19/23 10/19/23 History tizanidine 4 mg capsule 4 mg PO TID PRN muscle spasticity 10/19/23 10/19/23 Rx #60 caps Patient History Medical History (Updated 10/25/23 @ 00:09 by Jaspreet Frederick) Nocturnal hypoxemia Diverticulitis Chronic pain History of anesthesia reaction decreased SPo2 during the ventral hernia surgery. patient had to stay overnight post op Vocal cord polyp monitoring - scheduled in October 2023 with ENT Osteoporotic compression fracture of spine (01/23/22) Anxiety GERD (gastroesophageal reflux disease) Thrombocytopenia chronic Compression fracture hx - chronic pain Post traumatic stress disorder (PTSD) Depression Surgical History H/O ventral hernia repair H/O bilateral breast reduction surgery History of esophagogastroduodenoscopy (EGD) History of colonoscopy History of back surgery lumbar surgery (in office at time of injury) History of appendectomy History of cholecystectomy H/O: hysterectomy ZARINA with BSo H/O tooth extraction History of bowel resection (~2014) r/t perforatedf diverticulitis Family History Father Colorectal cancer Brother Colorectal cancer Denies family history of Ovarian cancer Prostate cancer Myocardial infarction Breast cancer Social History Smoking Status: Former smoker Tobacco Type: Cigarettes Age Started Using Tobacco: 22; Cigarettes Per Day: 2 a day; Second Hand Exposure: Yes; Do You Dip or Chew Tobacco: No; Hx Alcohol Use: No Hx Substance Use: No Preferred Language: Belarusian Communication Ability: Effective Visual Impairment: No Limitations Hearing Ability: Normal Chief Cruiser Required: No Beliefs That Will Affect Care: None marital status: Current Living Situation: Spouse current occupational status: retired How many Children do You have: 4 Feels Safe at Home: Yes Childhood Exposure to Second-Hand Smoke: Yes Diet Comment: NO RED MEAT Dental Care, Regularly: No Physical Activity Frequency: Does not Exercise Seatbelt Use: always Sunscreen Use: No Assistive Devices: Scooter/Electric Scooter, Walker and Wheelchair Review of Systems Review of Systems: All systems reviewed & are unremarkable except as noted in HPI & below Physical Exam Physical Exam: Patient was seen in conjunction with Dr. Mixon No acute distress alert and orient x 3 pain to palpation over the thoracolumbar region midline. Calf soft and nontender bilaterally strength intact bilateral lower extremities Results & Data Vital Signs (Past 12 Hours) Vital Signs Temp Pulse Resp BP Pulse Ox O2 Del Method 10/24/23 12:17 36.9 C 71 18 146/83 H 92 Room Air 10/24/23 10:24 Room Air 10/24/23 07:13 36.8 C 69 18 126/85 91 Room Air Diagnostic Findings [place], [place] [phone] XRay Report Patient: ORA ROCK Admit Date: 10/19/23 MR#: [id number] Address1: [address] [place] [address] Acct ID:[id number] Address2: Date: 1955 [facility] Zip: [place] [address] Age: 68 Location: 2W Sex: F Room/Bed: [facility] Att Phy: Uri Brothers MD Diagnosis: T12 COMPRESSION FRACTURE, NEED FOR PLACEMENT Annie Phy: Surinder Hope, III, SANNA Service Date: 10/21/23 Fam Phy: Interpreting Phy: Baldomero Reeder MDAdmit Phy: Michael Ramsay MD Ordering Phy: Navin Lackey MD cc: ~ THORACOLUMBAR SPINE 2 VIEWS CLINICAL HISTORY: Status post L1 kyphoplasty. T12 fracture. FINDINGS: AP and lateral standing views of the thoracolumbar spine are correlated with the lumbar spine CT dated 10/19/2023. The skeletal structures are osteopenic. There is a compression deformity of L1 status post vertebroplasty. Again seen is an acute inferior endplate compression fracture of T12. There are no significant retropulsed fragments at this level. There is only mild loss of height. Chronic compression deformities of L2 and L3 are again noted. Vertebral body height is maintained at L4 and L5. Alignment is preserved. Anterior and lateral marginal osteophytes are seen throughout. The transverse and spinous processes appear intact. The visualized bony pelvis appears intact. Degenerative sclerosis is noted in the sacroiliac joints. Surgical clips project over the pelvis. No bowel obstruction is seen. IMPRESSION: 1. An acute inferior endplate compression fracture of T12 is unchanged. No retropulsion of fragments is seen. 2. Additional chronic compression deformities as above with evidence of prior vertebroplasty at L1. Dictated: 10/21/2023 12:27 PM Transcribed: 10/21/2023 12:35 PM Tee [id number] [email or web address] Electronically signed by: Baldomero Reeder M.D. 10/21/2023 1:00 PM Dictated: 10/21/23 1227 Transcribed: 10/21/23 1235 [place], [place] [phone] CT Scan Report Patient: ORA ROCK Admit Date: 10/19/23 MR#: [id number] Address1: [address] [place] [address] Acct ID:[id number] Address2: Date: 1955 [facility] Zip: [place] [address] Age: 68 Location: ED Sex: F Room/Bed: Att Phy: Diagnosis: REFERRED BY DOC Annie Phy: Surinder Hope III, CRNP Service Date: 10/19/23 [facility] Phy: Interpreting Phy: Baldomero Reeder MDAdmit Phy: Ordering Phy: Anjelica Gamez PA-C cc: ~ CT SCAN OF THE LUMBAR SPINE WITH IV CONTRAST CLINICAL HISTORY: Low back pain. Recent surgery. COMPARISON STUDY: CT scan of the lumbar spine dated 10/10/2023 and 02/07/2022. TECHNIQUE: CT scan of the lumbar spine is performed from the lower thoracic spine to the sacrum following the administration of 92 cc of Optiray 320. Images are reviewed in axial, sagittal, and coronal planes. IV contrast was administered without complication. A dose lowering technique was utilized adhering to the principles of ALARA. FINDINGS: The skeletal structures are osteopenic. Again seen is a superior endplate compression fracture of L1 status post vertebroplasty. There is minimal retropulsion of fragments. This is unchanged from 10/10/2023. Chronic superior endplate compression deformities of L2 and L3 are also unchanged. No acute fracture is identified involving the lumbar spine. There is a mild acute inferior endplate compression fracture of T12. This is new from previous. Mild paravertebral edema is noted. No retropulsion of fragments is seen. There is no malalignment. Vertebral body height is maintained at L4 and L5. Alignment is p reserved. The transverse and spinous processes appear intact. There is no spondylolysis. No lytic or blastic lesion is seen. Anterior and lateral marginal osteophytes are seen throughout. There is moderate disc space narrowing at L4-L5 with associated vacuum phenomenon. Mild disc space narrowing is seen at the remaining lumbar levels. There is multilevel degenerative endplate sclerosis. There is no CT evidence of large disc herniation or high-grade central canal stenosis throughout the lumbar spine. Facet arthropathy is noted in the lower lumbar region. The visualized sacrum and bony pelvis appear intact. There is fatty atrophy of the paraspinous musculature. There is diverticulosis of the visualized sigmoid colon. The abdominal aorta is normal in course and caliber noting advanced atherosclerotic calcification. IMPRESSION: 1. There is an acute inferior endplate compression fracture of T12. There is only minimal loss of height. No retropulsion of fragments is seen. 2. Chronic lumbar compression deformities as above status post vertebroplasty at L1. These are unchanged from previous. 3. Osteopenia and spondylotic change as above. ACT 112: Negative or not required by law. Electronically signed by: Baldomero Reeder M.D. 10/19/2023 4:41 PM Dictated: 10/19/23 1540 Transcribed: 10/19/23 154 (1) Compression fracture of T12 vertebra Encounter type: initial encounter Qualified Code(s): S22.080A - Wedge compression fracture of T11-T12 vertebra, initial encounter for closed fracture
--- NOTE | 2023-10-24 17:15 | Hospitalist Progress Note ---
Date of Service October 24, 2023 Assessment & Plan (1) T12 compression fracture: Plan: P/w uncontrolled back pain s/p kyphoplasty of L1 w/ Dr Mixon on 09/24 Pain worsened since 10/09 and was seen at OSH and treated for UTI Imaging here with acute mild T12 compression fracture. No change in appearance of the L1 kyphoplasty. Old L2-L4 compression fractures Vitamin D 17.3- ergocalciferol ordered weekly- should eventually be switched to bisphosphonate Continue calcitonin nasal spray Ortho spine recommended TLSO brace, but now going for kyphoplasty on 10/24 Pain Management recommends switching Flexeril to baclofen due to drowsiness Continue pain control with tylenol, heat, oxycodone 5-10mg as needed, lidocaine patch, IV dilaudid Not able to use NSAIDs w/ her thrombocytopenia NPO after midnight, continue maintenance fluids while NPO (2) Ambulatory dysfunction: Plan: Due to acute pain and muscle spasms from T12 compression fracture , no loss of bowel/bladder function at present. Pathology from recent kyphoplasty showed osteonecrosis with focal active inflammation, noting marrow elements with numerous eosinophils. At that time her CBC did note elevated eosinophils but she has had varying degrees of elevation. Hematology consulted also given her thrombocytopenia. NO recs for bone marrow biopsy, suspect eosinophils from acute inflammation/fracture. Pt was able to return home last admission after kyphoplasty so will await to see if able to (3) UTI (urinary tract infection): Plan: Patient was diagnosed with a UTI at [facility] on 10/16, we do not have the culture results at this time Rx'd Macrobid on 10/16, however, she has previously grown Klebsiella resistant to Macrobid Ceftriaxone given here for UTI coverage, [facility] records without growth-abx now complete Urine cx from admission mod normal mell UA did note RBC but no blood, CK wnl as well as uric acid. ?passed stone no increased urinary symptoms reported (4) Depression: Plan: Continue lexapro, xanax qid scheduled (5) GERD (gastroesophageal reflux disease): Plan: Continue PPI , increased to BID for some darker stools but hgb stable Will need GI f/u for c-scope given recent diverticulitis (w/ hx perforated div erticulitis requiring resection) (6) Thrombocytopenia: Plan: Chronic , plt 30-50s No bleeding reported except possible dark stools with blood UA with RBC in urine, +fecal occult but has hx grade 4 hemorrhoids avoid ASA/NSAIDs as long as plt <50k with fatty liver on imaging but no cirrhosis; favio ragland mild splenomegaly Hematology consulted-recommends plt transfusion to over 75k for complex neurosurgical procedures No bone marrow bx needed at this time in the absence of peripheral eosinophilia and peripheral hematological abnormalities outside of chronic thrombocytopenia as the osteonecrosis and bone eosinophilia on bone bx was most likely reactive This is likely long standing, untreated ITP. COnsider steroids and IVIG if having major operation Follow CBC in AM (7) Nocturnal hypoxemia: Plan: failed overnight POx Pt declines formal sleep study and does not think she would wear a CPAP, but is willing to wear O2-order 2LNC O2 qhs and will arrange for O2 at home Will need to repeat overnight POx if not discharged by 10/24 Plan DVT proph-SCDs only given low plts Dispo-continued stay, kyphoplasty tomorrow, then possible discharge Admission and Anticipated Discharge Date Admission Date: October 19, 2023 Subjective Pt still having significant lower back pain. Is moving bowels. No other complaints Plan for kyphoplasty tomorrow Physical Exam Constitutional: WD/WN, vitals as above Respiratory: normal respiratory effort, lungs clear to auscultation Cardiovascular: RRR, no murmur, no edema Results & Data Results & Data Vital Signs (Past 12 Hours) Vital Signs Temp Pulse Resp BP Pulse Ox O2 Del Method 10/24/23 15:50 36.8 C 62 18 143/75 H 90 Room Air 10/24/23 12:17 36.9 C 71 18 146/83 H 92 Room Air 10/24/23 10:24 Room Air 10/24/23 07:13 36.8 C 69 18 126/85 91 Room Air PG Care Time/CCT Total # of Minutes Spent Total Time Spent with Patient: Total time spent is greater than 50% in coordination of care (as documented) at patient's floor/unit and/or counseling patient: Coding Level of Care Code 62000 SUB INP/OBS CARE 2/35MIN Diagnoses T12 compression fracture S22.080A Ambulatory dysfunction R26.2 UTI (urinary tract infection) N39.0 Depression F32.9 GERD (gastroesophageal reflux disease) K21.9 Thrombocytopenia D69.6 Nocturnal hypoxemia G47.34
[2023-10-25 08:00] LABS: Basophils # (auto) 0.04 K/uL (0.00-0.20); Basophils % (auto) 0.8 %; Eosinophils # (auto) 0.25 K/uL (0.00-0.50); Eosinophils % (auto) 4.8 %; Hematocrit (blood only) 41.3 % (37.0-47.0); Hemoglobin 13.9 g/dl (12.0-16.0); Lymphocytes # (auto) 1.37 K/uL (1.20-3.40); Lymphocytes % (auto) 26.3 %; Mean Corpuscular Hemoglobin 30.9 pg (25.0-34.0); Mean Corpuscular Hgb Conc 33.7 g/dL (32.0-36.0); Mean Corpuscular Volume 91.8 fL (80.0-100.0); Mean Platelet Volume 13.6 fL (9.4-12.4); Monocytes # (auto) 0.33 K/uL (0.11-0.59); Monocytes % (auto) 6.3 %; Neutrophils # (auto) 3.22 K/uL (1.40-6.50); Neutrophils % (auto) 61.8 %; Platelet Count 48 K/uL (130-400); RDW Standard Deviation 43.8 fL (36.4-46.3); White Blood Count 5.21 K/ul (4.8-10.8)
[2023-10-25 08:24] LABS: BUN Creatinine Ratio 9.2 (10-20); Calcium 9.3 mg/dl (8.6-10.3); Creatinine Clr Calc Pharmacy 104.4 ml/min; Est GFR (African American) 107.2 ml/min; Est GFR (Non-African American) 92.5 ml/min; Potassium 3.7 mmol/L (3.5-5.1)
--- NOTE | 2023-10-25 12:24 | Anesthesiology Consultation ---
Date of Service October 25, 2023 Assessment & Plan (1) Encounter for pre-operative examination: Chart Review Chart Review: Acceptable Risk for Surgery History Surgery Operation Date: 10/25/23 13:15 Proposed Procedures p T12 Kyphoplasty - Williams Mixon DO Height/Weight Height: 5 ft 4 in Weight: 112.128 kg Allergies Allergy/AdvReac Type Severity Reaction Status Date / Time NSAIDS (Non-Steroidal Allergy Unknown THROMBOCYTO Verified 10/19/23 11:49 Anti-Inflamma PENIA sumatriptan AdvReac Intermediate PANIC Verified 10/19/23 11:49 ATTACKS ketorolac AdvReac Mild SKIN Verified 10/19/23 11:49 IRRITATION Medications Home Medications Medication Instructions Recorded Confirmed Last Taken alprazolam 0.5 mg tablet 0.5 mg PO QID PRN Anxiety 01/23/22 10/19/23 Unknown escitalopram oxalate 10 mg tablet 10 mg PO QAM 01/23/22 10/19/23 10/09/23 escitalopram oxalate 20 mg tablet 20 mg PO QAM 01/23/22 10/19/23 10/09/23 omeprazole 20 mg capsule,delayed 20 mg PO QAM #90 caps 01/24/23 10/19/23 10/09/23 release fenofibrate nanocrystallized 145 145 mg PO QAM 03/21/23 10/19/23 10/09/23 mg tablet acetaminophen 325 mg tablet 650 mg (2 x 325 mg) PO Q4H PRN 09/26/23 10/19/23 Unknown pain #30 tabs ondansetron 4 mg disintegrating 4 mg PO Q8H PRN nausea and 10/13/23 10/19/23 Unknown tablet vomiting #7 tabs ciprofloxacin HCl 500 mg tablet 500 mg PO Q12H #20 tabs 10/19/23 10/19/23 Unknown hydrocodone 5 mg-acetaminophen 325 1 tab PO UD 10/19/23 10/19/23 Unknown mg tablet oxycodone 5 mg tablet 5 mg PO UD 10/19/23 10/19/23 Unknown tizanidine 4 mg capsule 4 mg PO TID PRN muscle spasticity 10/19/23 10/19/23 Unknown #60 caps Active Medications Generic Name Dose Route Start Last Admin Trade Name Freq PRN Reason Stop Dose Admin Acetaminophen 650 mg 10/19/23 21:00 10/25/23 07:50 Acetaminophen 325 Mg Tab PO 11/18/23 20:59 650 mg Q6H ELADIO Administration Alprazolam 0.5 mg 10/21/23 09:45 10/25/23 12:23 Alprazolam 0.5 Mg Tablet PO 11/20/23 09:44 0.5 mg QID ELADIO Administration Baclofen 5 mg 10/24/23 08:48 10/24/23 23:01 Baclofen 10 Mg Tab PO 11/23/23 08:59 5 mg TID PRN Administration spasm Calcitonin [place] 1 sprays 10/19/23 19:30 10/25/23 07:44 Calcitonin [place] Na 200 Iu/Ac 3.7 Ml Btl NA 11/18/23 19:29 1 sprays DAILY ELADIO Administration Ergocalciferol 1,250 mcg 10/20/23 09:00 10/20/23 12:16 Ergocalciferol 1250 Mcg (50,000 Units) Cap PO 11/19/23 08:59 1,250 mcg Q7D@0900 ELADIO Administration Escitalopram Oxalate 10 mg 10/20/23 09:00 10/25/23 07:43 Escitalopram Oxalate 10 Mg Tab PO 11/19/23 08:59 10 mg QAM ELADIO Administration Escitalopram Oxalate 20 mg 10/20/23 09:00 10/25/23 07:43 Escitalopram Oxalate 20 Mg Tab PO 11/19/23 08:59 20 mg QAM ELADIO Administration Fenofibrate 145 mg 10/20/23 09:00 10/25/23 07:43 Fenofibrate Nanocrystallized 145 Mg Tablet PO 11/19/23 08:59 145 mg QAM ELADIO Administration Folic Acid 1 mg 10/23/23 09:00 10/25/23 07:42 Folic Acid 1 Mg Tab PO 11/22/23 08:59 1 mg QAM ELADIO Administration Hydromorphone HCl 0.5 mg 10/23/23 15:41 10/25/23 07:40 Hydromorphone Inj 0.5 Mg/0.5 Ml Syr IV 11/06/23 15:40 0.5 mg Q6H PRN Administration Severe Pain (Scale 7, 8, 9,10) Sodium Chloride 1,000 mls @ 80 mls/hr 10/24/23 03:00 10/25/23 05:50 Nss IV 11/23/23 02:59 80 mls/hr .[id number] ELADIO Infusion Lidocaine 1 patch 10/23/23 15:45 10/25/23 07:57 Lidocaine 5% 1 Patch TD 11/22/23 15:44 Not Given QAM ELADIO Magnesium Oxide 400 mg 10/23/23 09:00 10/25/23 07:43 Magnesium Oxide 400 Mg Tab PO 11/22/23 08:59 400 mg QAM ELADIO Administration Miscellaneous 1 each 10/23/23 21:00 10/24/23 21:57 Remove Lidoderm Patch N/A 11/22/23 20:59 Not Given DAILY@2100 ELADIO Ondansetron HCl 4 mg 10/20/23 12:19 10/25/23 08:22 Ondansetron Inj 2 Mg/Ml 2 Ml Vial IV 11/19/23 12:18 4 mg Q4H PRN Administration Nausea Oxycodone HCl 5 - 10 mg 10/23/23 09:27 10/25/23 10:25 Oxycodone Hcl Ir 5 Mg Tab (Immediate Release) PO 11/03/23 12:18 10 mg Q6 PRN Administration Pain - see protocol Pantoprazole Sodium 40 mg 10/21/23 21:00 10/25/23 07:43 Pantoprazole 40 Mg Tab PO 11/20/23 20:59 40 mg BID ELADIO Administration NPO Date Last Intake of Fluids: 10/24/23 Time Last Intake of Fluids: 23:59 Date Last Intake of Solids: 10/24/23 Time Last Intake of Solids: 23:59 Past Medical History Medical History Nocturnal hypoxemia Diverticulitis Chronic pain History of anesthesia reaction decreased SPo2 during the ventral hernia surgery. patient had to stay overnight post op Vocal cord polyp monitoring - scheduled in October 2023 with ENT Osteoporotic compression fracture of spine (01/23/22) Anxiety GERD (gastroesophageal reflux disease) Thrombocytopenia chronic Compression fracture hx - chronic pain Post traumatic stress disorder (PTSD) Depression Past Family History Family History Father Colorectal cancer Brother Colorectal cancer Denies family history of Ovarian cancer Prostate cancer Myocardial infarction Breast cancer Past Surgical History Surgical History H/O ventral hernia repair H/O bilateral breast reduction surgery History of esophagogastroduodenoscopy (EGD) History of colonoscopy History of back surgery lumbar surgery (in office at time of injury) History of appendectomy History of cholecystectomy H/O: hysterectomy ZARINA with BSo H/O tooth extraction History of bowel resection (~2014) r/t perforatedf diverticulitis Social History Smoking Status: Former smoker Smoking cigarettes per day: 2 a day Do You Dip or Chew Tobacco: No Hx Alcohol Use: No Alcohol type: beer alcohol intake frequency: 3 or more drinks per day Hx Substance Use: No substance use type: does not use Last Used Substance Other:: 03/21/23 at 0300 Physical Exam Vital Signs Last Vital Signs Temp 36.6 C 10/25/23 08:00 Pulse 62 10/25/23 08:00 Resp 16 10/25/23 08:00 BP 175/94 H 10/25/23 08:00 Pulse Ox 92 10/25/23 08:00 O2 Del Method Room Air 10/25/23 08:00 Testing Laboratory Results 10/25/23 07:23 10/25/23 07:23 PT 12.7 Seconds (9.0-12.0) H 10/20/23 04:28 INR 1.2 (0.9-1.1) H 10/20/23 04:28 APTT 31 Seconds (21-31) 10/19/23 14:26 Urine Color Dark Yellow 10/20/23 Unknown Urine Appearance Cloudy (Clear) A 10/20/23 Unknown Urine pH 5.5 (4.5-7.5) 10/20/23 Unknown Ur Specific [place] 1.028 (1.000-1.030) 10/20/23 Unknown Urine Protein Negative (Negative) 10/20/23 Unknown Urine Glucose (UA) Negative (Negative) 10/20/23 Unknown Urine Ketones Trace (Negative) H 10/20/23 Unknown Urine Nitrite Negative (Negative) 10/20/23 Unknown Ur Leukocyte Esterase Negative (Negative) 10/20/23 Unknown Urine WBC (Auto) 0-5 /hpf (0-5) 10/20/23 Unknown Urine RBC (Auto) 3-5 /hpf (0-2) H 10/20/23 Unknown U Hyaline Cast (Auto) 0-2 /lpf (0-2) 10/20/23 Unknown U Epithel Cells (Auto) 11-20 /hpf (0-2) H 10/20/23 Unknown Urine Bacteria (Auto) None Seen (None Seen) 10/20/23 Unknown 10/19/23 14:26 Aerobic Blood Culture - Final Blood No growth in Aerobic bottle after 5 days. Anaerobic Blood Culture - Final No growth in Anaerobic bottle after 5 days. 10/20/23 Unknown Urine Culture - Final Urine,Clean Catch Three types or organisms present, all moderate counts probable skin mell. No further identifications or sensitivities to follow. 10/19/23 16:43 Anaerobic Blood Culture - Final Blood Electrocardiogram Date: 10/19/23 Findings: + NSR @ (76), + NSST changes and + poor R wave progression
[2023-10-25] MEDS ORDERED: DEXAMETHASONE SOD INJ 4 MG/ML VIAL ONE (12:53)
[2023-10-25] MEDS ORDERED: LIDOCAINE 2% 2 ML VIAL/AMP(20MG/ML) INFIL ONE (12:53)
[2023-10-25] MEDS ORDERED: ONDANSETRON INJ 2 MG/ML 2 ML VIAL ONE (12:53)
[2023-10-25] MEDS ORDERED: PROPOFOL IV EMULSION 10 MG/ML 20 ML VIAL IV ONE (12:54)
[2023-10-25] MEDS ORDERED: MIDAZOLAM HCL 1 MG/ML 2ML VIAL ONE (12:54)
[2023-10-25] MEDS ORDERED: GLYCOPYRROLATE 0.2 MG/ML VIAL ONE (12:54)
[2023-10-25] MEDS ORDERED: fentaNYL citrate PF 100 MCG/2 ML VIAL ONE (12:54)
[2023-10-25] MEDS ORDERED: ROCURONIUM BROMIDE 10 MG/ML 5 ML VIAL IV ONE (12:54)
--- NOTE | 2023-10-25 13:21 | History & Physical Bridge Note ---
Date of Service October 25, 2023 History & Physical Bridge Note I have examined the patient, reviewed the History & Physical and in the interval since the performance of the History & Physical I have noted the following changes of clinical significance: no changes noted Kyphoplasty T12
[2023-10-25] MEDS ORDERED: LABETALOL HCL IV 5 MG/ML 20ML IV PRN (13:51)
[2023-10-25] MEDS ORDERED: ATROPINE SULFATE 0.1 MG/ML 10ML SYR IV PRN (13:51)
[2023-10-25] MEDS: ceFAZolin 2000MG 2,000 MG/15 ML SYR IV SCH (13:53)
[2023-10-25] MEDS ORDERED: SUGAMMADEX SODIUM 200 MG/2 ML VIAL IV ONE (14:10)
[2023-10-25] MEDS: BUPIVACAINE/EPINEPHRINE 0.25% 1:200,000 30 ML VIAL ONE (14:26)
[2023-10-25] MEDS: ONDANSETRON INJ 2 MG/ML 2 ML VIAL IV PRN (14:38)
--- NOTE | 2023-10-25 14:38 | Operative Report ---
Post Operative Report Pre & Post Diagnosis Operation Date: 10/25/23 13:15 Pre-Op Diagnosis: T12 Compression Fracture Post-Op Diagnosis: T12 Compression Fracture I identified the patient and participated in the time-out.: Yes Procedure Operation Date: 10/25/23 13:15 Actual Procedures #1 T12 kyphoplasty. #2 biopsy of T12 vertebral body Surgeon Williams Mixon, DO Drug Room Clerk None Estimated Blood Loss 10 Findings Consistent with Post-Op Diagnosis Specimens Biopsy of T12 vertebral body Indications This is a 68-year-old female who presents with adjacent level compression fracture. She is having more difficulty with activities of daily living and controlling her pain is here for surgical invention. Description of Procedure Patient was met with identified informed consent obtained. Patient was then taken to the operative suite underwent patient placed in a prone position on the Leonardo table atop the chest padded bolsters. All bony prominences well-padded eyes inspected to ensure no external pressure spinal. This point the thoracolumbar spine was prepped and draped in normal sterile fashion. With the assistance of fluoroscopy in AP and lateral planes identified the T12 vertebral body. 2 small incisions were placed posteriorly just lateral to the pedicles. 2 Kyphon working cannulas were then placed by way of a transpedicular approach into the vertebral body of T12. Core biopsies were obtained. Then inserted to 15 mm Kyphon balloons and sequentially inflated with fluoroscopic visualization. The balloons were subsequently removed and approximately 6 cc of Kyphon cement injected demonstrating excellent interdigitation and fill. The working apparatus was removed. The small incisions closed with subcutaneous Monocryl and sterile dressings placed. Patient was awakened and taken to PACU in stable condition. I attest to the content of the Intraoperative Record and any orders documented therein. Any exceptions are noted below.
[2023-10-25] MEDS: PROMETHAZINE HCL 6.25 MG in SODIUM CHLORIDE 0.9% 50 ML IV PRN (14:57)
[2023-10-25] MEDS: PROMETHAZINE HCL INJ 25 MG/ML 1 ML VIAL ONE (14:59)
[2023-10-25] MEDS: SODIUM CHLORIDE 0.9% 50 ML BAG ONE (14:59)
--- NOTE | 2023-10-25 15:10 | Fluoroscopy Report ---
[place] kyphoplasty any level HISTORY: 68 years-old Female Kyphoplasty COMPARISON: CT lumbar spine of 10/19/2023 TECHNIQUE: 3 fluoroscopic images of the spine were obtained utilizing 131.0 seconds fluoroscopy time. 119.07 mGy FINDINGS: Demineralized appearance of the bones. Compression deformity with kyphoplasty, exact level is not con firmed secondary to magnification of the images. Note that the images were submitted following completion of the procedure. IMPRESSION: Fluoroscopic assistance as above. ACT 112: Negative or not required by law. The above report was generated using voice recognition software. It may contain grammatical, syntax o r spelling errors. Electronically signed by: Ruben Sanders M.D. 10/25/2023 3:08 PM
[2023-10-25] MEDS: HYDROmorphone INJ 1 MG/ML SYRINGE IV PRN (15:20)
--- NOTE | 2023-10-25 15:32 | Anesthesiology Progress Note ---
Date of Service October 25, 2023 Anesthesia Post Procedure Vital Signs Vital Signs: Temp Pulse Pulse Resp BP BP Pulse Ox 10/25/23 15:25 69 16 151/79 H 95 10/25/23 15:15 71 21 151/83 H 95 10/25/23 15:05 72 16 155/85 H 96 10/25/23 14:55 77 25 H 154/90 H 96 10/25/23 14:46 36.4 C L 76 12 156/81 H 97 10/25/23 13:01 36.7 C 62 71 20 176/96 H 93 10/25/23 12:22 64 151/88 H 10/25/23 08:00 36.6 C 62 16 175/94 H 92 10/24/23 23:35 36.8 C 66 18 150/76 H 94 10/24/23 22:51 36.8 C 66 18 144/82 H 93 10/24/23 15:50 36.8 C 62 18 143/75 H 90 O2 Del Method O2 Flow Rate 10/25/23 15:25 Nasal Cannula 2 10/25/23 15:15 Nasal Cannula 2 10/25/23 15:05 Nasal Cannula 2 10/25/23 14:55 Nasal Cannula 2 10/25/23 14:46 Oxymask 6 10/25/23 13:01 Room Air 10/25/23 12:22 10/25/23 08:00 Room Air 10/24/23 23:35 Room Air 10/24/23 22:51 Room Air 10/24/23 15:50 Room Air Pain Intensity Thoracic: Pain Intensity: 9 Bilateral Lower Back: Pain Intensity: 10 Back: Pain Intensity: 9 Transfer of Care Handoff Completed per policy Notes Mental Status: alert / awake / arousable Patient Amnestic to Procedure: Yes Nausea / Vomiting: adequately controlled Pain: adequately controlled Airway Patency, RR, SpO2: stable & adequate BP & HR: stable & adequate Hydration State: stable & adequate Anesthetic Complications: no major complications apparent
[2023-10-25] MEDS: ceFAZolin 2,000 MG/15 ML IV PUSH IV ONE (16:14)
--- NOTE | 2023-10-25 18:09 | Hospitalist Progress Note ---
Date of Service October 25, 2023 Assessment & Plan (1) T12 compression fracture: Plan: P/w uncontrolled back pain s/p kyphoplasty of L1 w/ Dr Mixon on 09/24 Pain worsened since 10/09 and was seen at OSH and treated for UTI Imaging here with acute mild T12 compression fracture. No change in appearance of the L1 kyphoplasty. Old L2-L4 compression fractures Vitamin D 17.3- ergocalciferol ordered weekly- should eventually be switched to bisphosphonate Continue calcitonin nasal spray Ortho spine recommended TLSO brace, but now s/p kyphoplasty on 10/24 Pain Management recommended switching Flexeril to baclofen due to drowsiness Continue pain control with tylenol, heat, oxycodone 5-10mg as needed, lidocaine patch, IV dilaudid Not able to use NSAIDs w/ her thrombocytopenia dc IVFs now that is post op and taking po Plan to dc to home once pain controlled with po meds (2) Ambulatory dysfunction: Plan: Due to acute pain and muscle spasms from T12 compression fracture , no loss of bowel/bladder function at present, no evidence of cauda equina Pathology from recent kyphoplasty showed osteonecrosis with focal active inflammation, noting marrow elements with numerous eosinophils. At that time her CBC did note elevated eosinophils but she has had varying degrees of elevation. Hematology consulted also given her thrombocytopenia. NO recs for bone marrow biopsy, suspect eosinophils from acute inflammation/fracture. Improving, can go home after discharge as per PT/OT (3) UTI (urinary tract infection): Plan: Patient was diagnosed with a UTI at [facility] on 10/16,culture no growth Rx'd Macrobid on 10/16, however, she has previously grown Klebsiella resistant to Macrobid Ceftriaxone given here for UTI coverage Urine cx from admission mod normal mell UA did note RBC but no blood, CK wnl as well as uric acid. ?passed stone no increased urinary symptoms reported (4) Depression: Plan: Continue lexapro, xanax qid scheduled (5) GERD (gastroesophageal reflux disease): Plan: Continue PPI , increased to BID for some darker stools but hgb stable Will need GI f/u for c-scope given recent diverticulitis (w/ hx perforated diverticulitis requiring resection) (6) Thrombocytopenia: Plan: Chronic , plt 30-50s No bleeding reported except possible dark stools with blood UA with RBC in urine, +fecal occult but has hx grade 4 hemorrhoids avoid ASA/NSAIDs as long as plt <50k with fatty liver on imaging but no cirrhosis; does have mild splenomegaly Hematology consulted-recommends plt transfusion to over 75k for complex neurosurgical procedures No bone marrow bx needed at this time in the absence of peripheral eosinophilia and peripheral hematological abnormalities outside of chronic thrombocytopenia as the osteonecrosis and bone eosinophilia on bone bx was most likely reactive This is likely long standing, untreated ITP. COnsider steroids and IVIG if having major operation Follow CBC in AM (7) Nocturnal hypoxemia: Plan: failed overnight POx Pt declines formal sleep study and does not think she would wear a CPAP, but is willing to wear O2-order 2LNC O2 qhs and will arrange for O2 at home through vocational case manager Will need to repeat overnight POx as was not discharged within 48 hrs of last study-repeat tonight Plan DVT proph-SCDs only given low plts Dispo-continued stay, likely dc to home tomorrow Admission and Anticipated Discharge Date Admission Date: October 19, 2023 Subjective Pt returned from kyphoplasty and having ongoing pain in mid to lower back. ABle to ambulate, moving bowels, making urine, eating. Physical Exam Constitutional: WD/WN, vitals as above Respiratory: normal respiratory effort, lungs clear to auscultation Cardiovascular: RRR, no murmur, no edema Musculoskeletal: back with dressings in place c/d/i Neurologic: no focal motor deficits Results & Data Results & Data Vital Signs (Past 12 Hours) Vital Signs Temp Pulse Pulse Resp BP BP Pulse Ox 10/25/23 18:00 37.4 C 68 16 143/83 H 94 10/25/23 17:00 37.4 C 65 16 146/86 H 95 10/25/23 16:30 36.6 C 65 20 147/90 H 95 10/25/23 16:00 36.5 C 67 18 152/90 H 94 10/25/23 15:45 69 13 157/82 H 96 10/25/23 15:35 37.1 C 66 19 149/79 H 96 10/25/23 15:25 69 16 151/79 H 95 10/25/23 15:15 71 21 151/83 H 95 10/25/23 15:05 72 16 155/85 H 96 10/25/23 14:55 77 25 H 154/90 H 96 10/25/23 14:46 36.4 C L 76 12 156/81 H 97 10/25/23 13:01 36.7 C 62 71 20 176/96 H 93 10/25/23 12:22 64 151/88 H 10/25/23 08:00 36.6 C 62 16 175/94 H 92 O2 Del Method O2 Flow Rate 10/25/23 18:00 Room Air 10/25/23 17:00 Nasal Cannula 2 10/25/23 16:30 Nasal Cannula 2 10/25/23 16:00 Nasal Cannula 2 10/25/23 15:45 Nasal Cannula 2 10/25/23 15:35 Nasal Cannula 2 10/25/23 15:25 Nasal Cannula 2 10/25/23 15:15 Nasal Cannula 2 10/25/23 15:05 Nasal Cannula 2 10/25/23 14:55 Nasal Cannula 2 10/25/23 14:46 Oxymask 6 10/25/23 13:01 Room Air 10/25/23 12:22 10/25/23 08:00 Room Air Laboratory Results CBC, BMP reviewed PG Care Time/CCT Total # of Minutes Spent Total Time Spent with Patient: Total time spent is greater than 50% in coordination of care (as documented) at patient's floor/unit and/or counseling patient: Coding Level of Care Code 74421 SUB INP/OBS CARE 2/35MIN Diagnoses T12 compression fracture S22.080A Ambulatory dysfunction R26.2 UTI (urinary tract infection) N39.0 Depression F32.9 GERD (gastroesophageal reflux disease) K21.9 Thrombocytopenia D69.6 Nocturnal hypoxemia G47.34
[2023-10-26 08:16] LABS: Basophils # (auto) 0.01 K/uL (0.00-0.20); Basophils % (auto) 0.2 %; Hematocrit (blood only) 44.2 % (37.0-47.0); Hemoglobin 14.5 g/dl (12.0-16.0); Immature Granulocytes # (auto) 0.01 K/uL (0.01-0.20); Immature Granulocytes % (auto) 0.2 %; Lymphocytes # (auto) 0.69 K/uL (1.20-3.40); Lymphocytes % (auto) 12.4 %; Mean Corpuscular Hgb Conc 32.8 g/dL (32.0-36.0); Mean Corpuscular Volume 91.3 fL (80.0-100.0); Mean Platelet Volume 13.9 fL (9.4-12.4); Monocytes # (auto) 0.21 K/uL (0.11-0.59); Monocytes % (auto) 3.8 %; Neutrophils # (auto) 4.66 K/uL (1.40-6.50); Neutrophils % (auto) 83.4 %; Platelet Count 62 K/uL (130-400); RDW Coefficient of Variation 12.7 % (11.5-14.5); Red Blood Count 4.84 M/uL (4.20-5.40); White Blood Count 5.58 K/ul (4.8-10.8)
[2023-10-26 08:38] LABS: BUN Creatinine Ratio 9.5 (10-20); Calcium 9.9 mg/dl (8.6-10.3); Creatinine Clr Calc Pharmacy 107.7 ml/min; Est GFR (African American) 108.3 ml/min; Est GFR (Non-African American) 93.5 ml/min; Potassium 4.4 mmol/L (3.5-5.1)
--- NOTE | 2023-10-26 10:59 | Orthopedic Progress Note ---
Date of Service October 26, 2023 Assessment & Plan (1) Compression fracture of T12 vertebra: Plan: This time encouraged patient to ambulate as tolerated. Lift no more than 5 pounds. She is stable for discharge home today per orthopedics. Admission and Anticipated Discharge Date Admission Date: October 19, 2023 Subjective Patient's back pain is markedly improved. She has been up and ambulating earlier today. She is tolerating this well. Physical Exam Physical Exam: On exam she is currently in bed. She is comfortable. Good strength testing. Results & Data Vital Signs (Past 12 Hours) Vital Signs Temp Pulse Pulse Resp BP Pulse Ox Pulse Ox 10/26/23 09:08 37.1 C 51 L 16 149/65 H 94 10/26/23 03:48 48 L 93 10/26/23 02:59 36.7 C 52 L 16 150/87 H 93 10/25/23 23:51 54 L 94 10/25/23 23:08 36.6 C 61 18 144/82 H 94 O2 Del Method O2 Del Method 10/26/23 09:08 Room Air 10/26/23 03:48 Room Air 10/26/23 02:59 Room Air 10/25/23 23:51 Room Air 10/25/23 23:08 Room Air Queries Orthopedic Spine Obesity: Yes Vertebral Fracture Secondary to Osteoporosis: Yes (1) Compression fracture of T12 vertebra Encounter type: initial encounter Qualified Code(s): S22.080A - Wedge compression fracture of T11-T12 vertebra, initial encounter for closed fracture
--- NOTE | 2023-10-26 17:41 | Hospitalist Progress Note ---
Date of Service October 26, 2023 Assessment & Plan (1) T12 compression fracture: Plan: P/w uncontrolled back pain s/p kyphoplasty of L1 w/ Dr Mixon on 09/24 Pain worsened since 10/09 and was seen at OSH and treated for UTI Imaging here with acute mild T12 compression fracture. No change in appearance of the L1 kyphoplasty. Old L2-L4 compression fractures Vitamin D 17.3- ergocalciferol ordered weekly- should eventually be switched to bisphosphonate Continue calcitonin nasal spray Ortho spine recommended TLSO brace, but now s/p kyphoplasty on 10/24 Pain Management recommended switching Flexeril to baclofen due to drowsiness Continue pain control with tylenol, heat, oxycodone 5-10mg as needed, lidocaine patch. Discontinue IV Dilaudid. If stable, will discharge to home tomorrow Not able to use NSAIDs w/ her thrombocytopenia Plan to dc to home once pain controlled with po meds (2) Ambulatory dysfunction: Plan: Due to acute pain and muscle spasms from T12 compression fracture , no loss of bowel/bladder function at present, no evidence of cauda equina Pathology from recent kyphoplasty showed osteonecrosis with focal active inflammation, noting marrow elements with numerous eosinophils. At that time her CBC did note elevated eosinophils but she has had varying degrees of elevation. Hematology consulted also given her thrombocytopenia. NO recs for bone marrow biopsy, suspect eosinophils from acute inflammation/fracture. Improving, can go home after discharge as per PT/OT (3) UTI (urinary tract infection): Plan: Patient was diagnosed with a UTI at [facility] on 10/16,culture no growth Rx'd Macrobid on 10/16, however, she has previously grown Klebsiella resistant to Macrobid Ceftriaxone given here for UTI coverage Urine cx from admission mod normal mell UA did note RBC but no blood, CK wnl as well as uric acid. ?passed stone no increased urinary symptoms reported (4) Depression: Plan: Continue lexapro, xanax qid scheduled (5) GERD (gastroesophageal reflux disease): Plan: Continue PPI , increased to BID for some darker stools but hgb stable Will need GI f/u for c-scope given recent diverticulitis (w/ hx perforated diverticulitis requiring resection) (6) Thrombocytopenia: Plan: Chronic , plt 30-50s No bleeding reported except possible dark stools with blood UA with RBC in urine, +fecal occult but has hx grade 4 hemorrhoids avoid ASA/NSAIDs as long as plt <50k with fatty liver on imaging but no cirrhosis; does have mild splenomegaly Hematology consulted-recommends plt transfusion to over 75k for complex neurosurgical procedures No bone marrow bx needed at this time in the absence of peripheral eosinophilia and peripheral hematological abnormalities outside of chronic thrombocytopenia as the osteonecrosis and bone eosinophilia on bone bx was most likely reactive This is likely long standing, untreated ITP. COnsider steroids and IVIG if having major operation Follow CBC in AM (7) Nocturnal hypoxemia: Plan: failed overnight POx Pt declines formal sleep study and does not think she would wear a CPAP, but is willing to wear O2-order 2LNC O2 qhs and will arrange for O2 at home through director case management Will need to repeat overnight POx as was not discharged within 48 hrs of last study-repeat tonight Plan DVT proph-SCDs only given low plts Dispo-continued stay, likely dc to home tomorrow Admission and Anticipated Discharge Date Admission Date: October 19, 2023 Subjective Patient feels well. Denies chest pain or shortness of breath. She states that she used Dilaudid this morning because of increased pain. She would like to see if her pain is controlled enough without the use of Dilaudid Review of Systems Review of Systems: All systems reviewed & are unremarkable except as noted in Subjective Physical Exam Physical Exam: General: Awake, conversant Heart: S1, S2/regular rate and rhythm, no murmur rubs or gallops Lungs: Clear to auscultation bilaterally. Normal effort Abdomen: Soft/nontender/nondistended. No hepatosplenomegaly Extremities: No clubbing/cyanosis. No edema Behavior: Appropriate, cooperative Results & Data Results & Data Vital Signs (Past 12 Hours) Vital Signs Temp Pulse Resp BP Pulse Ox O2 Del Method 10/26/23 14:41 36.5 C 56 L 16 152/78 H 94 Room Air 10/26/23 11:37 36.7 C 55 L 18 151/81 H 92 Room Air 10/26/23 09:08 37.1 C 51 L 16 149/65 H 94 Room Air Laboratory Results Abnormal lab results 10/26/23 Range/Units 07:43 Plt Count 62 L (130-400) K/uL MPV 13.9 H (9.4-12.4) fL Lymph # (Auto) 0.69 L (1.20-3.40) K/uL Sodium 134 L (136-145) mmol/L BUN/Creatinine Ratio 9.5 L (10-20) Glucose 126 H (70-99(Fasting)) mg/dl PG Care Time/CCT Total # of Minutes Spent Total Time Spent with Patient: Total time spent is greater than 50% in coordination of care (as documented) at patient's floor/unit and/or counseling patient: Coding Level of Care Code 14712 SUB INP/OBS CARE 2/35MIN Diagnoses T12 compression fracture S22.080A Ambulatory dysfunction R26.2 UTI (urinary tract infection) N39.0 Depression F32.9 GERD (gastroesophageal reflux disease) K21.9 Thrombocytopenia D69.6 Nocturnal hypoxemia G47.34
[2023-10-26] MEDS: oxyCODONE HCL IR 5 MG TAB (IMMEDIATE RELEASE) PO ONE (21:54)
--- NOTE | 2023-10-27 14:11 | Discharge Summary ---
Date of Service October 27, 2023 Admission HPI Per Admitting Provider Jonelle is a 68 year old female with a PMH significant for Anxiety, GERD, and anxiety who presented to the [facility] ED from her PCP's office due to ongoing back pain, ambulatory dysfunction, and need for placement. See PCP's note from today for summary of her recent hospitalizations and procedures at [facility]. On arrival to the ED today she was noted to be hypertensive at 185/100 but otherwi se stable. Labs were unremarkable. Chest xray was negative for acute findings. Ct of the lumbar spine was read as "1. There is an acute inferior endplate compression fracture of T12. There is only minimal loss of height. No retropulsion of fragments is seen. 2. Chronic lumbar compression deformities as above status post vertebroplasty at L1. These are unchanged from previous. 3. Osteopenia and spondylotic change as above.". CT of the abd/pelvis w/IV con was read as "1. Acute mild T12 compression fracture. No change in appearance of the L1 kyphoplasty. Old L2-L4 compression fractures. 2. No acute process within the abdomen or pelvis. No bowel wall thickening. No bowel obstruction. Colonic diverticulosis. No evidence for acute diverticulitis. Stable presacral/retroperitoneal stranding.". Prior to admission the patient was given 1gm IV tylenol, 500 mL NSS, 2 doses of 4 mg IV morphine, and 4 mg IV zofran. At the time of the exam the patient was lying in bed in no acute distress. She states that she has been unable to complete her ADL's or function normally since being discharged from [facility]. The majority of her low back pain is due to muscle spasms at this time. She states that Dr. Hope prescribed her a new antibiotic today as she was prescribed Macrobid for her UTI diagnosed at [facility] on 10/16 but this would not cover her previous UTI's. She denies recent fever, chills, chest pain, cough, SOB, abd pain, nausea, vomiting, diarrhea, diarrhea, LE swelling, and recent falls. She is a full code and her is her POA. When asked, she denies recent saddle anesthesia, loss of bowel or bladder function, LE weakness. Please refer to Dr. Ramsay's attestation for any changes to the treatment plan Admission Exam Per Admitting Provider General: In no acute distress, stated age, well-nourished, non-toxic appearing HEENT: Normocephalic, atraumatic, no scleral icterus, pupils around round, symmetrical, and reactive to light, moist mucus membranes, trachea midline, no thyromegaly Chest/Pulm: No respiratory distress, symmetrical chest expansion, clear breath sounds throughout Cardiac: RRR, no murmurs noted Abdomen: Negative for ascites and bruising, normoactive bowel sounds, soft, non- tender to palpation throughout Musculoskeletal: Patient with significant muscle spasms and pain in the low back and BL LE's with minimal movement, symmetrical sensation and strength in the BL LE's Extremities: Radial, dorsalis pedis, and posterior tibial pulses are intact and symmetrical, no edema noted in the BL LE's Skin: Warm, dry, no rashes , lesions, or scars noted Neuro: Alert and oriented to person, place, month, year, and president, symmetrical and intact strength, sensation, and distal reflexes in the BL LE's Psych: No acute distress, calm and cooperative during the exam Principal Diagnosis T12 compression fracture Ambulatory dysfunction Discharge Exam General: Awake, conversant Heart: S1, S2/regular rate and rhythm, no murmur rubs or gallops Lungs: Clear to auscultation bilaterally. Normal effort Abdomen: Soft/nontender/nondistended. No hepatosplenomegaly Extremities: No clubbing/cyanosis. No edema Behavior: Appropriate, cooperative Discharge Data Allergies Allergy/AdvReac Type Severity Reaction Status Date / Time NSAIDS (Non-Steroidal Allergy Unknown THROMBOCYTO Verified 10/19/23 11:49 Anti-Inflamma PENIA sumatriptan AdvReac Intermediate PANIC Verified 10/19/23 11:49 ATTACKS ketorolac AdvReac Mild SKIN Verified 10/19/23 11:49 IRRITATION Consultations 10/19/23 17:20 ED Decision to Admit Stat 10/21/23 07:59 Consult Orthopedic Spine Surgery Routine 10/22/23 07:44 Consult Hematology Routine 10/23/23 09:54 Consult Pain Management Routine Procedures Performed Operation Date: 10/25/23 13:15 Actual Procedures p T12 Kyphoplasty(Not Applicable) - Williams Mixon DO Ordered Studies 10/19/23 14:08 CT lumbar spine w con Stat 10/19/23 14:09 CT abd pelvis IV con only Stat 10/25/23 07:00 FL kyphoplasty any level Routine Hospital Course (1) T12 compression fracture: P/w uncontrolled back pain s/p kyphoplasty of L1 w/ Dr Mixon on 09/24 Pain worsened since 10/09 and was seen at OSH and treated for UTI Imaging here with acute mild T12 compression fracture. No change in appearance of the L1 kyphoplasty. Old L2-L4 compression fractures Vitamin D 17.3- ergocalciferol ordered weekly- should eventually be switched to bisphosphonate Ortho spine recommended TLSO brace, but now s/p kyphoplasty on 10/24 Pain Management recommended switching Flexeril to baclofen due to drowsiness Continue pain control with tylenol, heat, oxycodone 5-10mg as needed. Discontinued IV Dilaudid. Not able to use NSAIDs w/ her thrombocytopenia Plan to DC to home today on p.o. medications (2) Ambulatory dysfunction: Due to acute pain and muscle spasms from T12 compression fracture , no loss of bowel/bladder function at present, no evidence of cauda equina Pathology from recent kyphoplasty showed osteonecrosis with focal active inflammation, noting marrow elements with numerous eosinophils. At that time her CBC did note elevated eosinophils but she has had varying degrees of elevation. Hematology consulted also given her thrombocytopenia. NO recs for bone marrow biopsy, suspect eosinophils from acute inflammation/fracture. Improving, can go home after discharge as per PT/OT (3) UTI (urinary tract infection): Patient was diagnosed with a UTI at [facility] on 10/16,culture no growth Rx'd Macrobid on 10/16, however, she has previously grown Klebsiella resistant to Macrobid Ceftriaxone given here for UTI coverage Urine cx from admission mod normal mell UA did note RBC but no blood, CK wnl as well as uric acid. ?passed stone no increased urinary symptoms reported (4) Depression: Continue lexapro, xanax qid scheduled (5) GERD (gastroesophageal reflux disease): Continue PPI , increased to BID for some darker stools but hgb stable Will need GI f/u for c-scope given recent diverticulitis (w/ hx perforated diverticulitis requiring resection) (6) Thrombocytopenia: Chronic , plt 30-50s No bleeding reported except possible dark stools with blood UA with RBC in urine, +fecal occult but has hx grade 4 hemorrhoids avoid ASA/NSAIDs as long as plt <50k with fatty liver on imaging but no cirrhosis; does have mild splenomegaly Hematology consulted-recommends plt transfusion to over 75k for complex neurosurgical procedures No bone marrow bx needed at this time in the absence of peripheral eosinophilia and peripheral hematological abnormalities outside of chronic thrombocytopenia as the osteonecrosis and bone eosinophilia on bone bx was most likely reactive This is likely long standing, untreated ITP. COnsider steroids and IVIG if having major operation Follow CBC in AM (7) Nocturnal hypoxemia: failed overnight POx Pt declines formal sleep study and does not think she would wear a CPAP, but is willing to wear O2-ordered 2LNC O2 qhs and arranged for O2 at home through pillowcase cleaner Plan Discharge to home today Total Time Total Time Spent Total Time Spent (In Minutes): 35 Discharge Plan Discharge Items Patient Disposition: Home - Self-Care Reason For Visit: T12 COMPRESSION FRACTURE, NEED FOR PLACEMENT Discharge Diagnosis: T12 compression fracture Ambulatory dysfunction Activity: Resume your previous activity Lifting: No more than 5 pounds Bathing: No limitations Non-emergency contact: Primary Care Provider Call non-emergency contact if: you have any medication questions and your symptoms worsen Follow-up/Referrals: Surinder Hope III, CRNP [Primary Care Provider] - 11/03/23 10:30 am Williams Mixon DO [Surgeon] - Diet: Heart Healthy Addita Attending Provider Instructions: Advised to follow-up with PCP in 1 week Advised to follow-up with ortho spine in 2 weeks [employer] Provider Instructions: Please lift no more than 5 pounds. Follow-up in the office in 2 weeks for postop x-rays and evaluation. Pending Studies at Discharge: No Stand-Alone Forms: My [facility] SABIA, Smoking Cessation Medications and DC Order Prescriptions: New baclofen 10 mg Tablet 5 mg PO TID PRN (Reason: muscle spasm) Qty: 20 0RF ergocalciferol (vitamin D2) 1,250 mcg (50,000 unit) Capsule 1,250 mcg PO Q7D@0900 Qty: 4 0RF oxycodone 5 mg Tablet 5 - 10 mg PO Q6 PRN (Reason: pain) Qty: 20 0RF Continued omeprazole 20 mg capsule,delayed release(DR/EC) 20 mg PO QAM Qty: 90 1RF ondansetron 4 mg tablet,disintegrating 4 mg PO Q8H PRN (Reason: nausea and vomiting) Qty: 7 0RF fenofibrate nanocrystallized 145 mg tablet 145 mg PO QAM escitalopram oxalate 10 mg tablet 10 mg PO QAM Rx Instructions: Take 10mg w/ 20mg by mouth once every morning for 30mg dose. escitalopram oxalate 20 mg tablet 20 mg PO QAM Rx Instructions: Take 20mg w/ 10mg by mouth once every morning for 30mg dose. alprazolam 0.5 mg tablet 0.5 mg PO QID PRN (Reason: Anxiety) acetaminophen 325 mg Tablet 650 mg PO Q4H PRN (Reason: pain) Qty: 30 0RF Rx Instructions: OTC hydrocodone-acetaminophen 5-325 mg tablet 1 tab PO UD Discontinued tizanidine 4 mg capsule 4 mg PO TID PRN (Reason: muscle spasticity) Qty: 60 0RF ciprofloxacin HCl 500 mg tablet 500 mg PO Q12H Qty: 20 0RF oxycodone 5 mg tablet 5 mg PO UD Discharge Orders: Discharge Order (Routine); Ordered 10/27/23 Ordered By: Breanne Melendrez Admission Data Admit Date/Time: 10/19/23 19:01 Attending Provider: Breanne Melendrez Admit Provider: Michael Ramsay Primary Care Provider: Surinder Hope III Other Providers: Michael Ramsay; Williams Mixon; Santiago Demarco; Dennis Dennis Other Interventions: Discharge Summary Assessment (RN) Last Done: 10/27/23 12:28 Coding Level of Care Code 43457 INP/OBS DISCH >30 MIN Diagnoses T12 compression fracture S22.080A Ambulatory dysfunction R26.2 UTI (urinary tract infection) N39.0 Depression F32.9 GERD (gastroesophageal reflux disease) K21.9 Thrombocytopenia D69.6 Nocturnal hypoxemia G47.34
== END 2023-10-27 13:13 | disposition home or self-care (01) | DRG 478 ==
LOC: ED 13:30 → SUATTDRO 19:01 → EDINP 19:01 → 2W 20:46 → 3N 10-24 23:23